=== PATIENT | female | born 1955 | race African-American/Black ===

== ENCOUNTER 2017-05-27 10:09 | Emergency (ER) | payer MEDICARE, OTHER ==
[~2017-05-27] VITALS: Ht 157.5 cm; Wt 53.0 kg
[~2017-05-27 10:09] MED LIST: CLON1PAT11 TD; HYDR-4135 PO; METR250T4 PO; PROT40 PO; SULF-165 PO; TRAM50TA3 PO
[2017-05-27] MEDS ORDERED: CLINDAMYCIN 300 MG in DEXTROSE 5% WATER 50 ML IV ONE (12:45)
[2017-05-27] MEDS ORDERED: SODIUM CHLORIDE 0.9% 1,000 ML IV ONE (12:45)
[2017-05-27 14:22] LABS: BASOPHILS % 0.2 % (0.0-2.0); EOSINOPHILS % 0.7 % (0.0-5.0); HEMATOCRIT. 33.4 % (36.0-48.0); LYMPHOCYTES % 14.5 % (20.0-50.0); MEAN CORPUSCULAR HEMOGLOBIN 32.1 pg (28.0-32.0); MEAN CORPUSCULAR VOLUME 97.6 fL (81.0-99.0); MEAN PLATELET VOLUME 9.1 fl (7.4-10.4); MONOCYTES % 7.7 % (2.0-8.0); NEUTROPHILS % 76.9 % (40.0-76.0); PLATELET 391 x1000/uL (130-400); RED BLOOD CELL COUNT 3.42 mill/uL (4.2-5.4); RED CELL DISTRIBUTION WIDTH 13.8 % (11.6-14.6)
[2017-05-27 14:25] LABS: CHLORIDE 101 mEq/L (98-107)
[2017-05-27 14:26] LABS: PROTHROMBIN TIME 10.8 sec (9.4-11.6)
[2017-05-27 14:29] LABS: CLARITY URINE CLEAR (CLEAR); COLOR URINE YELLOW (YELLOW); KETONES URINE TRACE (NEGATIVE); LEUKOCYTE ESTERASE URINE TRACE (NEGATIVE); NITRITE URINE NEGATIVE (NEGATIVE); OCCULT BLOOD URINE NEGATIVE (NEGATIVE); PROTEIN URINE NEGATIVE (NEGATIVE); SPECIFIC GRAVITY URINE 1.028 (1.005-1.030)
[2017-05-27 14:32] LABS: CARBON DIOXIDE 25 mEq/L (21-32)
[2017-05-27 14:55] LABS: *AMPHETAMINES SCREEN URINE NEGATIVE (NEGATIVE); *BARBITURATES SCREEN URINE NEGATIVE (NEGATIVE); *BENZODIAZEPINES SCREEN URINE NEGATIVE (NEGATIVE); *COCAINE SCREEN URINE PRESUMTIVE POSITIVE (NEGATIVE); CANNABINOID URINE SCREEN NEGATIVE (NEGATIVE); METHADONE URINE SCREEN NEGATIVE (NEGATIVE); OPIATES URINE SCREEN PRESUMTIVE POSITIVE (NEGATIVE); PHENCYCLIDINE URINE SCREEN PRESUMTIVE POSITIVE (NEGATIVE)
[2017-05-27] MEDS ORDERED: IOHEXOL-300 100 ML BOTTLE ONE (15:44)
[2017-05-27] MEDS ORDERED: MORPHINE SULFATE 4 MG/ML CPJ (NOT FOR IM USE) IV ONE (16:00)
[2017-05-27] MEDS ORDERED: HYDROCODONE/ACETAMINOPHEN 10/325MG TABLET PO ONE (16:00)
[2017-05-27] MEDS ORDERED: LIDOCAINE HCL 1%/EPI 1:200,000 30 ML VIAL MC ONE (16:00)
[2017-05-27 16:22] VITALS: BP 95/49
== END 2017-05-27 17:20 | disposition home or self-care (01) ==
LOC: ER 10:32
DX: L02.31 Cutaneous abscess of buttock (principal); F11.10 Opioid abuse, uncomplicated; F14.10 Cocaine abuse, uncomplicated; F16.10 Hallucinogen abuse, uncomplicated; I10 Essential (primary) hypertension; E78.00 Pure hypercholesterolemia, unspecified; M19.90 Unspecified osteoarthritis, unspecified site; J45.909 Unspecified asthma, uncomplicated; F17.210 Nicotine dependence, cigarettes, uncomplicated; D72.829 Elevated white blood cell count, unspecified
CPT/HCPCS: 10061; 36415; 71010; 72193; 80053; 80305; 81001; 83605; 85025; 85610; 87040; 87070; 87077; 87086; 87186; 87205; 93005; 96365; 96375; 99285; J2270; J3490; Q9967; J7030; J7060

== ENCOUNTER 2017-10-26 06:49 | Emergency (ER) | payer MEDICARE, MEDICAID ==
[~2017-10-26] VITALS: Ht 152.4 cm; Wt 52.0 kg
[2017-10-26] MEDS ORDERED: ONDANSETRON 4MG ODT PO STA (09:43)
[2017-10-26] MEDS ORDERED: KETOROLAC 30MG/ML VIAL IV STA (09:43)
[2017-10-26] MEDS ORDERED: MORPHINE SULFATE 4 MG/ML CPJ (NOT FOR IM USE) IV STA (09:43)
[2017-10-26] MEDS ORDERED: LIDOCAINE/EPINEPHR/TETRACAINE 3ML TP ONE (09:45)
[2017-10-26] MEDS ORDERED: VANCOMYCIN 1 G PREMIX 200 ML IV ONE (09:45)
[2017-10-26] MEDS ORDERED: LORAZEPAM 2MG/ML CPJ IV ONE (09:45)
[2017-10-26 11:25] LABS: BASOPHILS % 0.5 % (0.0-2.0); EOSINOPHILS % 0.9 % (0.0-5.0); HEMATOCRIT. 28.6 % (36.0-48.0); HEMOGLOBIN. 9.5 g/dL (12.0-16.0); LYMPHOCYTES % 17.4 % (20.0-50.0); MEAN CORPUSCULAR HEMOGLOBIN 31.8 pg (28.0-32.0); MEAN CORPUSCULAR VOLUME 95.5 fL (81.0-99.0); MEAN PLATELET VOLUME 8.8 fl (7.4-10.4); MONOCYTES % 8.4 % (2.0-8.0); NEUTROPHILS % 72.8 % (40.0-76.0); PLATELET 380 x1000/uL (130-400); RED CELL DISTRIBUTION WIDTH 16.6 % (11.6-14.6)
[2017-10-26 11:31] LABS: CHLORIDE 104 mEq/L (98-107); PROTHROMBIN TIME 10.6 sec (9.4-11.6)
[2017-10-26] MEDS ORDERED: LIDOCAINE HCL/PF 1% 10 MG/ML 5ML VIAL IJ NR (12:30)
[2017-10-26] MEDS ORDERED: LIDOCAINE HCL 1% 20ML VIAL (Pyxis) INJ MC ONE (12:30)
[2017-10-26] MEDS ORDERED: MORPHINE SULFATE 4 MG/ML CPJ (NOT FOR IM USE) IV ONE (14:15)
[2017-10-26 15:12] VITALS: BP 172/75
== END 2017-10-26 15:18 | disposition home or self-care (01) ==
LOC: ER 07:47 → ENRESERV 15:10 → ER 15:18 → CANBEDREQ 17:05
DX: L02.211 Cutaneous abscess of abdominal wall (principal); E78.00 Pure hypercholesterolemia, unspecified; I10 Essential (primary) hypertension; J45.909 Unspecified asthma, uncomplicated; F17.210 Nicotine dependence, cigarettes, uncomplicated; M19.90 Unspecified osteoarthritis, unspecified site; Z87.11 Personal history of peptic ulcer disease; Z71.6 Tobacco abuse counseling
CPT/HCPCS: 10060; 36415; 80048; 82962; 85025; 85610; 96365; 96366; 96375; 99285; 99406; J1885; J2060; J2270; J3370; J3490; Q0162

== ENCOUNTER 2017-10-28 07:34 | Emergency (ER) | payer MEDICAID, MEDICARE ==
[~2017-10-28] VITALS: Ht 154.9 cm; Wt 51.5 kg
[2017-10-28] MEDS ORDERED: antibiotic (07:44)
[2017-10-28 09:58] VITALS: BP 148/81
[2017-10-28] MEDS ORDERED: ACETAMINOPHEN WITH CODEINE 300/30MG TABLET PO ONE (10:00)
== END 2017-10-28 10:54 | disposition left against medical advice (07) ==
LOC: ER 07:56
DX: Z48.00 Encounter for change or removal of nonsurgical wound dressing (principal); E78.00 Pure hypercholesterolemia, unspecified; I10 Essential (primary) hypertension; F17.200 Nicotine dependence, unspecified, uncomplicated
CPT/HCPCS: 99282

== ENCOUNTER 2018-03-13 02:41 | Inpatient (IN) | payer MEDICARE, MEDICAID ==
[~2018-03-13] VITALS: Ht 152.4 cm; Wt 40.8 kg
[~2018-03-13 02:41] MED LIST changes: +AMLO10TA80 PO; +CLON0.1T14 PO; -CLON1PAT11 TD; -HYDR-4135 PO; -METR250T4 PO; +PANT40VI PO; -PROT40 PO; -SULF-165 PO
[2018-03-13] MEDS ORDERED: CALCIUM GLUCONATE 100MG/ML 10ML VIAL IV ONE (03:30)
[2018-03-13] MEDS ORDERED: MORPHINE SULFATE 4 MG/ML CPJ (NOT FOR IM USE) IV STA (03:32)
[2018-03-13] MEDS ORDERED: PANTOPRAZOLE SODIUM 40 MG/VIAL IV STA (03:32)
[2018-03-13 04:50] LABS: BASOPHILS % 0.3 % (0.0-2.0); EOSINOPHILS % 0.1 % (0.0-5.0); HEMATOCRIT. 24.1 % (36.0-48.0); LYMPHOCYTES % 7.9 % (20.0-50.0); MEAN CORPUSCULAR HEMOGLOBIN 31.7 pg (28.0-32.0); MEAN CORPUSCULAR VOLUME 95.4 fL (81.0-99.0); MEAN PLATELET VOLUME 8.2 fl (7.4-10.4); MONOCYTES % 5.6 % (2.0-8.0); NEUTROPHILS % 86.1 % (40.0-76.0); PLATELET 723 x1000/uL (130-400); RED BLOOD CELL COUNT 2.53 mill/uL (4.2-5.4); RED CELL DISTRIBUTION WIDTH 15.5 % (11.6-14.6)
[2018-03-13 05:16] LABS: CLARITY URINE CLEAR (CLEAR); COLOR URINE YELLOW (YELLOW); KETONES URINE TRACE (NEGATIVE); LEUKOCYTE ESTERASE URINE TRACE (NEGATIVE); NITRITE URINE NEGATIVE (NEGATIVE); OCCULT BLOOD URINE NEGATIVE (NEGATIVE); PH URINE 6.5 (4.5-8.0); PROTEIN URINE TRACE (NEGATIVE); SPECIFIC GRAVITY URINE 1.037 (1.005-1.030); UROBILINOGEN URINE 0.2 E.U./dL (0.2-1.0)
[2018-03-13] MEDS ORDERED: PIPERACILLIN/TAZOBACTAM 3.375GM/50ML PREMIX IV ONE (05:30)
[2018-03-13] MEDS ORDERED: PIPERACILLIN/TAZ 3.375G PREMIX 50 ML IV NR (05:30)
[2018-03-13 05:37] LABS: CHLORIDE 98 mEq/L (98-107)
[2018-03-13] MEDS ORDERED: SODIUM CHLORIDE 0.9% 1000ML BAG (SEPSIS BOLUS) IV ONE (05:45)
[2018-03-13] MEDS ORDERED: POTASSIUM CHLORIDE INJ 40 MEQ in DEXT 5% WATER 250 ML IV ONE (05:45)
[2018-03-13] MEDS ORDERED: IOHEXOL-300 100 ML BOTTLE ONE (06:16)
[2018-03-13 09:42] VITALS: BP 153/85
[2018-03-13 09:56] VITALS: BP 153/85
[2018-03-13] MEDS ORDERED: ATEN-42 PO (10:10)
[2018-03-13] MEDS ORDERED: HYDR12.529 PO (10:10)
[2018-03-13] MEDS ORDERED: SIMV5TAB53 PO (10:10)
[2018-03-13] MEDS: DEXT 5%/0.45% NACL 1000ML 1,000 ML IV SCH (10:37)
[2018-03-13] MEDS ORDERED: IPRATROPIUM/ALBUTEROL 0.5-3(2.5)MG/3ML NEB INH PRN (10:45)
[2018-03-13] MEDS ORDERED: LORAZEPAM 0.5MG TABLET PO PRN (10:45)
[2018-03-13] MEDS ORDERED: ACETAMINOPHEN 325MG TABLET PO PRN (10:45)
[2018-03-13 12:00] VITALS: BP 165/81
[2018-03-13] MEDS ORDERED: MVI, ADULT NO.1 10 ML, FOLIC ACID 1 MG, THIAMINE HCL 100 MG in SODIUM CHLORIDE 0.9% 1,0... IV NR ×4 (12:00)
[2018-03-13 12:43] VITALS: BP 161/86
[2018-03-13] MEDS ORDERED: ONDANSETRON HCL 4MG/2ML INJ IV PRN (12:45)
[2018-03-13] MEDS: AMLODIPINE 2.5MG TABLET PO SCH (12:55)
[2018-03-13] MEDS: NICOTINE 7MG PATCH TD SCH (12:56)
[2018-03-13] MEDS: MORPHINE SULFATE 4 MG/ML CPJ (NOT FOR IM USE) IV PRN ×3 (12:56→21:58)
[2018-03-13 13:20] LABS: PHOSPHORUS 2.9 mg/dL (2.5-4.9)
[2018-03-13] MEDS ORDERED: POTASSIUM CHLORIDE 20MEQ TABLET SR PO SCH (14:00)
[2018-03-13] MEDS ORDERED: HYDR25TA MT (15:03)
[2018-03-13] MEDS ORDERED: HYDR-4009 MT (15:03)
[2018-03-13] MEDS ORDERED: TYLENOL #3 PO (15:03)
[2018-03-13] MEDS ORDERED: GEMF600T4 MT (15:03)
[2018-03-13 16:00] VITALS: BP 128/62
[2018-03-13 20:00] VITALS: BP 147/67
[2018-03-13] MEDS: CLONIDINE 0.1MG TABLET PO SCH (21:57)
[2018-03-13] MEDS: ATENOLOL 25MG TABLET PO SCH (21:57)
[2018-03-13] MEDS: HYDROCHLOROTHIAZIDE 25MG TABLET PO SCH (22:04)
[2018-03-13] MEDS ORDERED: LEVOFLOXACIN 500MG PREMIX 100 ML IV NR (22:30)
[2018-03-14] VITALS (9 sets, daily range): BP systolic 117–157; BP diastolic 65–86
[2018-03-14] MEDS: MORPHINE SULFATE 4 MG/ML CPJ (NOT FOR IM USE) IV PRN ×5 (04:01→21:31)
[2018-03-14] MEDS: DEXT 5%/0.45% NACL 1000ML 1,000 ML IV SCH (04:01)
[2018-03-14 07:38] LABS: BASOPHILS % 0.5 % (0.0-2.0); EOSINOPHILS % 0.1 % (0.0-5.0); LYMPHOCYTES % 14.1 % (20.0-50.0); MEAN CORPUSCULAR HEMOGLOBIN 32.2 pg (28.0-32.0); MEAN CORPUSCULAR VOLUME 96.2 fL (81.0-99.0); MEAN PLATELET VOLUME 8.7 fl (7.4-10.4); MONOCYTES % 4.6 % (2.0-8.0); NEUTROPHILS % 80.7 % (40.0-76.0); PLATELET 584 x1000/uL (130-400); RED CELL DISTRIBUTION WIDTH 15.1 % (11.6-14.6)
[2018-03-14 07:46] LABS: HEMATOCRIT. 19.2 % (36.0-48.0); HEMOGLOBIN. 6.4 g/dL (12.0-16.0)
[2018-03-14 08:14] LABS: CHLORIDE 105 mEq/L (98-107)
[2018-03-14 08:18] LABS: PHOSPHORUS 2.9 mg/dL (2.5-4.9)
[2018-03-14] MEDS ORDERED: POTASSIUM CHLORIDE 20MEQ TABLET SR PO NR ×2 (09:30→13:30)
[2018-03-14] MEDS: DEXT 5%/0.45% NACL KCL 20MEQ/L 1,000 ML IV SCH ×2 (10:23→22:20)
[2018-03-14] MEDS: NICOTINE 7MG PATCH TD SCH (10:23)
[2018-03-14] MEDS: GEMFIBROZIL 600MG TABLET PO SCH (10:23)
[2018-03-14] MEDS: CLONIDINE 0.1MG TABLET PO SCH ×2 (10:24→21:31)
[2018-03-14] MEDS: AMLODIPINE 2.5MG TABLET PO SCH (10:24)
[2018-03-14] MEDS: ATENOLOL 25MG TABLET PO SCH (10:24)
[2018-03-14] MEDS: HYDROCHLOROTHIAZIDE 25MG TABLET PO SCH (10:24)
[2018-03-14] MEDS: LEVOFLOXACIN 250MG PREMIX 50 ML IV SCH (11:07)
[2018-03-14] MEDS: METRONIDAZOLE 500 MG PREMIX 100 ML IV SCH ×2 (17:10→22:10)
[2018-03-14 21:31] LABS: BASOPHILS % 0.3 % (0.0-2.0); EOSINOPHILS % 0.2 % (0.0-5.0); HEMATOCRIT. 23.5 % (36.0-48.0); LYMPHOCYTES % 20.2 % (20.0-50.0); MEAN CORPUSCULAR HEMOGLOBIN 31.9 pg (28.0-32.0); MEAN CORPUSCULAR VOLUME 93.2 fL (81.0-99.0); MEAN PLATELET VOLUME 7.9 fl (7.4-10.4); MONOCYTES % 7.3 % (2.0-8.0); PLATELET 603 x1000/uL (130-400); RED BLOOD CELL COUNT 2.52 mill/uL (4.2-5.4); RED CELL DISTRIBUTION WIDTH 15.7 % (11.6-14.6)
[2018-03-14] MEDS: DIPHENHYDRAMINE 50MG/ML VIAL IV PRN (22:03)
[2018-03-15] VITALS: BP 151/81
[2018-03-15] MEDS: MORPHINE SULFATE 4 MG/ML CPJ (NOT FOR IM USE) IV PRN ×2 (03:02→09:26)
[2018-03-15 04:00] VITALS: BP 109/70
[2018-03-15 05:06] LABS: *AMPHETAMINES SCREEN URINE NEGATIVE (NEGATIVE); *BARBITURATES SCREEN URINE NEGATIVE (NEGATIVE); *BENZODIAZEPINES SCREEN URINE NEGATIVE (NEGATIVE); *COCAINE SCREEN URINE NEGATIVE (NEGATIVE); METHADONE URINE SCREEN NEGATIVE (NEGATIVE); OPIATES URINE SCREEN PRESUMTIVE POSITIVE (NEGATIVE); PHENCYCLIDINE URINE SCREEN NEGATIVE (NEGATIVE)
[2018-03-15 05:07] LABS: CANNABINOID URINE SCREEN NEGATIVE (NEGATIVE)
[2018-03-15] MEDS: METRONIDAZOLE 500 MG PREMIX 100 ML IV SCH ×3 (05:21→21:17)
[2018-03-15 06:26] LABS: CHLORIDE 109 mEq/L (98-107)
[2018-03-15 06:34] LABS: BASOPHILS % 0.2 % (0.0-2.0); EOSINOPHILS % 0.3 % (0.0-5.0); HEMATOCRIT. 23.8 % (36.0-48.0); HEMOGLOBIN. 8.2 g/dL (12.0-16.0); LYMPHOCYTES % 24.3 % (20.0-50.0); MEAN CORPUSCULAR VOLUME 92.9 fL (81.0-99.0); MEAN PLATELET VOLUME 8.3 fl (7.4-10.4); MONOCYTES % 7.9 % (2.0-8.0); NEUTROPHILS % 67.3 % (40.0-76.0); PLATELET 619 x1000/uL (130-400); RED BLOOD CELL COUNT 2.56 mill/uL (4.2-5.4); RED CELL DISTRIBUTION WIDTH 16.1 % (11.6-14.6)
[2018-03-15 08:09] VITALS: BP 141/79
[2018-03-15] MEDS: NICOTINE 7MG PATCH TD SCH ×2 (09:00→09:24)
[2018-03-15] MEDS ORDERED: POTASSIUM CHLORIDE INJ 40 MEQ in DEXT 5% WATER 250 ML IV SCH (09:00)
[2018-03-15] MEDS: POTASSIUM CHLORIDE 20MEQ TABLET SR PO SCH (09:26)
[2018-03-15] MEDS: GEMFIBROZIL 600MG TABLET PO SCH (09:26)
[2018-03-15] MEDS: CLONIDINE 0.1MG TABLET PO SCH ×2 (09:27→21:16)
[2018-03-15] MEDS: AMLODIPINE 2.5MG TABLET PO SCH (09:27)
[2018-03-15] MEDS: ATENOLOL 25MG TABLET PO SCH (09:27)
[2018-03-15] MEDS: HYDROCHLOROTHIAZIDE 25MG TABLET PO SCH (09:27)
[2018-03-15 12:02] VITALS: BP 155/85
[2018-03-15] MEDS: DEXT 5%/0.45% NACL KCL 20MEQ/L 1,000 ML IV SCH (12:40)
[2018-03-15] MEDS: HYDROMORPHONE HCL/PF 2MG/ML CPJ IV PRN ×3 (13:56→21:18)
[2018-03-15] MEDS: LEVOFLOXACIN 250MG PREMIX 50 ML IV SCH (13:57)
[2018-03-15 15:56] VITALS: BP 151/80
[2018-03-15 20:00] VITALS: BP 135/81
[2018-03-16] VITALS: BP 112/66
[2018-03-16] MEDS: HYDROMORPHONE HCL/PF 2MG/ML CPJ IV PRN ×7 (01:18→22:30)
[2018-03-16] MEDS: DEXT 5%/0.45% NACL KCL 20MEQ/L 1,000 ML IV SCH ×3 (01:22→23:57)
[2018-03-16] MEDS: DIPHENHYDRAMINE 50MG/ML VIAL IV PRN ×2 (01:55→22:31)
[2018-03-16 04:00] VITALS: BP_SYST 110; BP_SYST 155; BP_DIAS 50; BP_DIAS 60
[2018-03-16] MEDS: METRONIDAZOLE 500 MG PREMIX 100 ML IV SCH ×3 (05:56→22:28)
[2018-03-16 06:14] LABS: HEMATOCRIT. 22.2 % (36.0-48.0); HEMOGLOBIN. 7.5 g/dL (12.0-16.0); MEAN CORPUSCULAR HEMOGLOBIN 31.8 pg (28.0-32.0); MEAN CORPUSCULAR VOLUME 93.6 fL (81.0-99.0); MEAN PLATELET VOLUME 8.6 fl (7.4-10.4); PLATELET 685 x1000/uL (130-400); RED BLOOD CELL COUNT 2.37 mill/uL (4.2-5.4); RED CELL DISTRIBUTION WIDTH 15.8 % (11.6-14.6)
[2018-03-16 06:32] LABS: CHLORIDE 105 mEq/L (98-107)
[2018-03-16 08:10] VITALS: BP 158/86
[2018-03-16] MEDS: POTASSIUM CHLORIDE 20MEQ TABLET SR PO SCH (08:30)
[2018-03-16] MEDS: GEMFIBROZIL 600MG TABLET PO SCH (09:13)
[2018-03-16] MEDS: ATENOLOL 25MG TABLET PO SCH (09:13)
[2018-03-16] MEDS: CLONIDINE 0.1MG TABLET PO SCH ×2 (09:13→21:09)
[2018-03-16] MEDS: HYDROCHLOROTHIAZIDE 25MG TABLET PO SCH (09:13)
[2018-03-16] MEDS: AMLODIPINE 2.5MG TABLET PO SCH (09:13)
[2018-03-16] MEDS: NICOTINE 7MG PATCH TD SCH (09:14)
[2018-03-16 12:05] VITALS: BP 154/84
[2018-03-16 13:03] LABS: PLATELET ESTIMATE INCREASED
[2018-03-16] MEDS: LEVOFLOXACIN 250MG PREMIX 50 ML IV SCH (13:24)
[2018-03-16] MEDS ORDERED: LOPERAMIDE HCL 2MG CAPSULE PO PRN (16:00)
[2018-03-16] MEDS ORDERED: HYDROMORPHONE HCL/PF 2MG/ML CPJ IV PRN (16:00)
[2018-03-16 16:20] LABS: INR 1.1; PROTHROMBIN TIME 10.7 sec (9.1-11.1)
[2018-03-16 16:30] VITALS: BP 144/84
[2018-03-16 16:40] LABS: CHLORIDE 103 mEq/L (98-107)
[2018-03-16 20:00] VITALS: BP 124/79
[2018-03-17] VITALS: BP 160/90
[2018-03-17 01:13] LABS: CHLORIDE 101 mEq/L (98-107)
[2018-03-17] MEDS: HYDROMORPHONE HCL/PF 2MG/ML CPJ IV PRN ×5 (01:36→21:16)
[2018-03-17 04:00] VITALS: BP 153/94
[2018-03-17] MEDS: METRONIDAZOLE 500 MG PREMIX 100 ML IV SCH ×2 (05:15→13:53)
[2018-03-17 06:31] LABS: BASOPHILS % 0.1 % (0.0-2.0); EOSINOPHILS % 0.1 % (0.0-5.0); MEAN CORPUSCULAR HEMOGLOBIN 31.2 pg (28.0-32.0); MEAN CORPUSCULAR VOLUME 92.9 fL (81.0-99.0); MEAN PLATELET VOLUME 8.5 fl (7.4-10.4); MONOCYTES % 5.8 % (2.0-8.0); PLATELET 761 x1000/uL (130-400); RED BLOOD CELL COUNT 2.94 mill/uL (4.2-5.4); RED CELL DISTRIBUTION WIDTH 15.3 % (11.6-14.6)
[2018-03-17 06:39] LABS: CHLORIDE 100 mEq/L (98-107)
[2018-03-17 06:55] LABS: PHOSPHORUS 3.7 mg/dL (2.5-4.9)
[2018-03-17 06:57] LABS: HEMATOCRIT. 27.3 % (36.0-48.0); HEMOGLOBIN. 9.2 g/dL (12.0-16.0)
[2018-03-17 08:30] VITALS: BP 156/94
[2018-03-17] MEDS: AMLODIPINE 2.5MG TABLET PO SCH (09:12)
[2018-03-17] MEDS: ATENOLOL 25MG TABLET PO SCH (09:12)
[2018-03-17] MEDS: GEMFIBROZIL 600MG TABLET PO SCH (09:12)
[2018-03-17] MEDS: LACTOBACILLUS GG CAPSULE PO SCH (09:12)
[2018-03-17] MEDS: NICOTINE 7MG PATCH TD SCH (09:20)
[2018-03-17 12:30] VITALS: BP 184/96
[2018-03-17] MEDS: CLONIDINE 0.1MG TABLET PO SCH ×2 (13:34→20:34)
[2018-03-17] MEDS: DEXT 5%/0.45% NACL KCL 20MEQ/L 1,000 ML IV SCH ×2 (13:53→20:37)
[2018-03-17] MEDS: LEVOFLOXACIN 250MG PREMIX 50 ML IV SCH (16:06)
[2018-03-17 16:30] VITALS: BP 140/82
[2018-03-17] MEDS ORDERED: POTASSIUM CHLORIDE 20MEQ TABLET SR PO NR (16:36)
[2018-03-17] MEDS ORDERED: LOPERAMIDE HCL 2MG CAPSULE PO NR (16:46)
[2018-03-17] MEDS ORDERED: SIMETHICONE 80MG TABLET CHEW PO PRN (17:00)
[2018-03-17] MEDS ORDERED: POTASSIUM CHLORIDE INJ 40 MEQ in DEXT 5% WATER 250 ML IV PRN (19:30)
[2018-03-17 20:00] VITALS: BP 129/72
[2018-03-17] MEDS: LOPERAMIDE HCL 2MG CAPSULE PO SCH (20:35)
[2018-03-17] MEDS: PANTOPRAZOLE SODIUM 40 MG/VIAL IV SCH (20:37)
[2018-03-17 21:31] LABS: CHLORIDE 101 mEq/L (98-107)
[2018-03-18] VITALS (7 sets, daily range): BP systolic 102–123; BP diastolic 54–74
[2018-03-18] MEDS: METRONIDAZOLE 500 MG PREMIX 100 ML IV SCH ×4 (00:46→20:49)
[2018-03-18] MEDS: ZOLPIDEM TARTRATE 5MG TABLET PO PRN (00:48)
[2018-03-18 01:22] LABS: CHLORIDE 103 mEq/L (98-107)
[2018-03-18] MEDS: HYDROMORPHONE HCL/PF 2MG/ML CPJ IV PRN ×5 (01:55→20:39)
[2018-03-18] MEDS: LOPERAMIDE HCL 2MG CAPSULE PO SCH ×3 (04:00→08:00)
[2018-03-18] MEDS: DEXT 5%/0.45% NACL KCL 20MEQ/L 1,000 ML IV SCH ×2 (05:20→11:08)
[2018-03-18 06:55] LABS: BASOPHILS % 0.1 % (0.0-2.0); EOSINOPHILS % 0.1 % (0.0-5.0); LYMPHOCYTES % 13.1 % (20.0-50.0); MEAN CORPUSCULAR HEMOGLOBIN 31.2 pg (28.0-32.0); MEAN CORPUSCULAR VOLUME 93.8 fL (81.0-99.0); MEAN PLATELET VOLUME 8.4 fl (7.4-10.4); MONOCYTES % 9.4 % (2.0-8.0); NEUTROPHILS % 77.3 % (40.0-76.0); PLATELET 643 x1000/uL (130-400); RED BLOOD CELL COUNT 2.56 mill/uL (4.2-5.4)
[2018-03-18 07:18] LABS: PHOSPHORUS 1.8 mg/dL (2.5-4.9)
[2018-03-18] MEDS: CLONIDINE 0.1MG TABLET PO SCH ×2 (09:00→21:00)
[2018-03-18] MEDS: ATENOLOL 25MG TABLET PO SCH (09:00)
[2018-03-18] MEDS: AMLODIPINE 2.5MG TABLET PO SCH (09:00)
[2018-03-18] MEDS: GEMFIBROZIL 600MG TABLET PO SCH (10:44)
[2018-03-18] MEDS: LACTOBACILLUS GG CAPSULE PO SCH (10:44)
[2018-03-18] MEDS: NICOTINE 7MG PATCH TD SCH (10:44)
[2018-03-18] MEDS: PANTOPRAZOLE SODIUM 40 MG/VIAL IV SCH ×2 (10:45→20:48)
[2018-03-18] MEDS: SODIUM CHLORIDE 0.45% 1,000 ML IV SCH (14:50)
[2018-03-18] MEDS ORDERED: LOPERAMIDE HCL 2MG CAPSULE PO SCH (16:00)
[2018-03-18] MEDS: LEVOFLOXACIN 250MG PREMIX 50 ML IV SCH (17:48)
[2018-03-19] VITALS (7 sets, daily range): BP systolic 108–146; BP diastolic 66–81
[2018-03-19] MEDS: HYDROMORPHONE HCL/PF 2MG/ML CPJ IV PRN ×5 (01:11→22:05)
[2018-03-19] MEDS: ZOLPIDEM TARTRATE 5MG TABLET PO PRN (01:12)
[2018-03-19] MEDS: SODIUM CHLORIDE 0.45% 1,000 ML IV SCH ×2 (02:16→21:31)
[2018-03-19] MEDS: METRONIDAZOLE 500 MG PREMIX 100 ML IV SCH ×3 (06:12→21:34)
[2018-03-19] MEDS: LOPERAMIDE HCL 2MG CAPSULE PO PRN (06:33)
[2018-03-19 06:55] LABS: BASOPHILS % 0.6 % (0.0-2.0); EOSINOPHILS % 0.2 % (0.0-5.0); HEMATOCRIT. 23.1 % (36.0-48.0); HEMOGLOBIN. 7.7 g/dL (12.0-16.0); LYMPHOCYTES % 18.2 % (20.0-50.0); MEAN CORPUSCULAR HEMOGLOBIN 31.7 pg (28.0-32.0); MEAN CORPUSCULAR VOLUME 94.7 fL (81.0-99.0); MEAN PLATELET VOLUME 8.5 fl (7.4-10.4); MONOCYTES % 6.7 % (2.0-8.0); NEUTROPHILS % 74.3 % (40.0-76.0); PLATELET 671 x1000/uL (130-400); RED BLOOD CELL COUNT 2.44 mill/uL (4.2-5.4); RED CELL DISTRIBUTION WIDTH 15.6 % (11.6-14.6)
[2018-03-19 06:59] LABS: INR 1.1; PARTIAL THROMBOPLASTIN TIME 33.9 sec (23.4-31.0); PROTHROMBIN TIME 11.4 sec (9.1-11.1)
[2018-03-19 07:18] LABS: CHLORIDE 107 mEq/L (98-107)
[2018-03-19] MEDS: AMLODIPINE 2.5MG TABLET PO SCH (09:00)
[2018-03-19] MEDS: ATENOLOL 25MG TABLET PO SCH (09:00)
[2018-03-19] MEDS: CLONIDINE 0.1MG TABLET PO SCH ×2 (09:00→21:00)
[2018-03-19] MEDS: GEMFIBROZIL 600MG TABLET PO SCH (09:59)
[2018-03-19] MEDS: LACTOBACILLUS GG CAPSULE PO SCH (09:59)
[2018-03-19] MEDS: PANTOPRAZOLE SODIUM 40 MG/VIAL IV SCH ×2 (09:59→21:34)
[2018-03-19] MEDS: NICOTINE 7MG PATCH TD SCH (10:00)
[2018-03-19] MEDS ORDERED: SODIUM PHOS,M-BASIC-D-BASIC 20 MM in DEXT 5% WATER 243.3333 ML IV SCH (14:00)
[2018-03-19] MEDS ORDERED: MAGNESIUM SULFATE 2 GM in DEXTROSE 5% WATER 50 ML IV SCH (14:00)
[2018-03-19] MEDS: LEVOFLOXACIN 250MG PREMIX 50 ML IV SCH (15:02)
[2018-03-19 15:08] LABS: ATYPICAL pANCA <1:20 titer (Neg:<1:20)
[2018-03-19] MEDS ORDERED: MIDAZOLAM HCL 2 MG/2 ML VIAL IV PRN (17:50)
[2018-03-19] MEDS ORDERED: FENTANYL CITRATE/PF 50MCG/ML 2ML VIAL IV PRN (17:51)
[2018-03-19] MEDS ORDERED: MIDAZOLAM HCL 5 MG/5 ML VIAL ONE (17:56)
[2018-03-19] MEDS ORDERED: FENTANYL CITRATE/PF 50MCG/ML 2ML VIAL ONE (17:56)
[2018-03-19] MEDS: SUCRALFATE 1G TABLET PO SCH (21:37)
[2018-03-20] VITALS: BP 127/79
[2018-03-20] MEDS: HYDROMORPHONE HCL/PF 2MG/ML CPJ IV PRN ×3 (02:04→09:55)
[2018-03-20] MEDS: SODIUM CHLORIDE 0.45% 1,000 ML IV SCH ×3 (02:05→14:30)
[2018-03-20] MEDS: ZOLPIDEM TARTRATE 5MG TABLET PO PRN (02:08)
[2018-03-20 04:00] VITALS: BP 143/83
[2018-03-20] MEDS: LOPERAMIDE HCL 2MG CAPSULE PO PRN (05:58)
[2018-03-20] MEDS: METRONIDAZOLE 500 MG PREMIX 100 ML IV SCH (05:58)
[2018-03-20] MEDS: CLONIDINE 0.1MG TABLET PO SCH (09:00)
[2018-03-20 09:05] VITALS: BP 142/67
[2018-03-20] MEDS: AMLODIPINE 2.5MG TABLET PO SCH (09:11)
[2018-03-20] MEDS: GEMFIBROZIL 600MG TABLET PO SCH (09:12)
[2018-03-20] MEDS: PANTOPRAZOLE SODIUM 40 MG/VIAL IV SCH (09:12)
[2018-03-20] MEDS: LACTOBACILLUS GG CAPSULE PO SCH (09:12)
[2018-03-20] MEDS: ATENOLOL 25MG TABLET PO SCH (09:12)
[2018-03-20] MEDS: NICOTINE 7MG PATCH TD SCH (09:12)
[2018-03-20] MEDS: SUCRALFATE 1G TABLET PO SCH ×3 (09:12→16:32)
[2018-03-20] MEDS ORDERED: FLUCONAZOLE 200MG TABLET PO SCH (10:30)
[2018-03-20 11:26] LABS: BASOPHILS % 0.6 % (0.0-2.0); EOSINOPHILS % 0.1 % (0.0-5.0); HEMATOCRIT. 22.3 % (36.0-48.0); HEMOGLOBIN. 7.3 g/dL (12.0-16.0); LYMPHOCYTES % 17.1 % (20.0-50.0); MEAN CORPUSCULAR HEMOGLOBIN 31.1 pg (28.0-32.0); MEAN PLATELET VOLUME 8.2 fl (7.4-10.4); MONOCYTES % 5.8 % (2.0-8.0); NEUTROPHILS % 76.4 % (40.0-76.0); PLATELET 744 x1000/uL (130-400); RED BLOOD CELL COUNT 2.35 mill/uL (4.2-5.4); RED CELL DISTRIBUTION WIDTH 15.2 % (11.6-14.6)
[2018-03-20 12:12] LABS: CHLORIDE 109 mEq/L (98-107)
[2018-03-20 12:42] VITALS: BP 144/79
[2018-03-20 13:07] LABS: SACCHAROMYCES CEREVISIAE IGG 61.8 Units (0.0-24.9)
[2018-03-20] MEDS ORDERED: PANT40VI IV (14:54)
[2018-03-20] MEDS ORDERED: FLUC200T PO (14:54)
[2018-03-20] MEDS ORDERED: SUCR1TAB30 PO (14:54)
[2018-03-20] MEDS ORDERED: LACT1CAP77 PO (14:54)
[2018-03-20] MEDS ORDERED: CLON0.1T14 PO (14:54)
[2018-03-20] MEDS ORDERED: AMLO2.5T45 PO (14:54)
[2018-03-20] MEDS ORDERED: SODIUM CHLORIDE 0.9% 10ML VIAL ONE (15:38)
[2018-03-20] MEDS ORDERED: HYDROCODONE/ACETAMINOPHEN 5/325MG TABLET PO SCH (17:00)
[2018-03-20 17:23] VITALS: BP 149/81
== END 2018-03-20 18:30 | disposition home or self-care (01) | DRG 871 ==
LOC: ER 02:41 → 6WST 05:45 → EDBEDREQ 05:54 → EDBEDREQTM 05:54 → ENRESERV 07:25
PROVIDERS: ADMIT Internal Medicine; ATTEND Internal Medicine
PROC: 30233N1 Transfusion of Nonautologous Red Blood Cells into Peripheral Vein, Percutaneous Approach (ICD-10-PCS; 2018-03-14)
PROC: 0DB28ZX Excision of Middle Esophagus, Via Natural or Artificial Opening Endoscopic, Diagnostic (ICD-10-PCS; 2018-03-19)
PROC: 0DB78ZX Excision of Stomach, Pylorus, Via Natural or Artificial Opening Endoscopic, Diagnostic (ICD-10-PCS; 2018-03-19)
PROC: 0DB38ZX Excision of Lower Esophagus, Via Natural or Artificial Opening Endoscopic, Diagnostic (ICD-10-PCS; principal; 2018-03-19 17:00)
DX: A41.9 Sepsis, unspecified organism (principal); E43 Unspecified severe protein-calorie malnutrition; K28.4 Chronic or unspecified gastrojejunal ulcer with hemorrhage; N39.0 Urinary tract infection, site not specified; L03.113 Cellulitis of right upper limb; B37.81 Candidal esophagitis; L02.413 Cutaneous abscess of right upper limb; Z68.1 Body mass index [BMI] 19.9 or less, adult; K52.9 Noninfective gastroenteritis and colitis, unspecified; E87.6 Hypokalemia; E11.22 Type 2 diabetes mellitus with diabetic chronic kidney disease; K29.70 Gastritis, unspecified, without bleeding; E78.00 Pure hypercholesterolemia, unspecified; E86.1 Hypovolemia; B19.20 Unspecified viral hepatitis C without hepatic coma; F14.10 Cocaine abuse, uncomplicated; F11.10 Opioid abuse, uncomplicated; F10.10 Alcohol abuse, uncomplicated; F15.10 Other stimulant abuse, uncomplicated; I12.9 Hypertensive chronic kidney disease with stage 1 through stage 4 chronic kidney disease, or unspecified chronic kidney disease; N18.9 Chronic kidney disease, unspecified; D64.9 Anemia, unspecified; Z87.01 Personal history of pneumonia (recurrent); Z72.0 Tobacco use; Z86.19 Personal history of other infectious and parasitic diseases; Z71.41 Alcohol abuse counseling and surveillance of alcoholic; Z87.11 Personal history of peptic ulcer disease; Z93.4 Other artificial openings of gastrointestinal tract status
CPT/HCPCS: 36415; 74177; 76700; 80048; 80305; 82270; 83605; 83735; 84100; 84132; 84145; 86256; 86671; 86850; 86900; 86920; 87015; 87045; 87427; 87449; 87493; 88305; 88312; 88313; 89055; 93005; 96365; 96366; 96367; 96368; 96375; 99285; A4216; A6261; C1893; C9113; J0610; J1170; J1200; J1956; J2250; J2270; J2405; J2543; J3010; J3411; J3475; J3480; J3490; J7030; J7050; J7060; P9016; Q9967

== ENCOUNTER 2018-03-27 03:53 | Inpatient (IN) | payer MEDICARE, MEDICAID ==
[~2018-03-27] VITALS: Ht 154.9 cm; Wt 49.9 kg
[2018-03-27] VITALS (7 sets, daily range): BP systolic 156–180; BP diastolic 73–93
[~2018-03-27 03:53] MED LIST changes: -AMLO10TA80 PO; +AMLO2.5T45 PO; +ATEN-42 PO; +FLUC200T PO; +GEMF600T4 MT; +HYDR-4009 MT; +HYDR25TA MT; +LACT1CAP77 PO; +PANT40VI IV; -PANT40VI PO; +SUCR1TAB30 PO; -TRAM50TA3 PO; +TYLENOL #3 PO
[2018-03-27] MEDS ORDERED: ONDANSETRON HCL 4MG/2ML INJ IV STA (06:23)
[2018-03-27] MEDS ORDERED: MORPHINE SULFATE 4 MG/ML CPJ (NOT FOR IM USE) IV STA (06:23)
[2018-03-27] MEDS ORDERED: SODIUM CHLORIDE 0.9% 1000ML BAG (SEPSIS BOLUS) IV ONE (06:30)
[2018-03-27 07:09] LABS: BASOPHILS % 0.2 % (0.0-2.0); EOSINOPHILS % 0.2 % (0.0-5.0); HEMATOCRIT. 21.6 % (36.0-48.0); HEMOGLOBIN. 7.4 g/dL (12.0-16.0); LYMPHOCYTES % 25.4 % (20.0-50.0); MEAN CORPUSCULAR HEMOGLOBIN 31.3 pg (28.0-32.0); MEAN CORPUSCULAR VOLUME 91.7 fL (81.0-99.0); MEAN PLATELET VOLUME 8.4 fl (7.4-10.4); MONOCYTES % 8.7 % (2.0-8.0); NEUTROPHILS % 65.5 % (40.0-76.0); PLATELET 596 x1000/uL (130-400); RED BLOOD CELL COUNT 2.36 mill/uL (4.2-5.4); RED CELL DISTRIBUTION WIDTH 15.1 % (11.6-14.6)
[2018-03-27 07:18] LABS: CHLORIDE 113 mEq/L (98-107)
[2018-03-27 07:27] LABS: INR 1.2; PARTIAL THROMBOPLASTIN TIME 37.6 sec (23.4-31.0); PROTHROMBIN TIME 11.8 sec (9.1-11.1)
[2018-03-27] MEDS ORDERED: FUROSEMIDE 20MG/2ML VIAL IVP ONE (07:45)
[2018-03-27] MEDS ORDERED: POTASSIUM CHLORIDE 20MEQ TABLET SR PO ONE (07:45)
[2018-03-27 07:50] LABS: CLARITY URINE CLOUDY (CLEAR); COLOR URINE YELLOW (YELLOW); KETONES URINE NEGATIVE (NEGATIVE); LEUKOCYTE ESTERASE URINE 1+ (NEGATIVE); NITRITE URINE NEGATIVE (NEGATIVE); OCCULT BLOOD URINE NEGATIVE (NEGATIVE); PROTEIN URINE NEGATIVE (NEGATIVE); SPECIFIC GRAVITY URINE 1.019 (1.005-1.030)
[2018-03-27] MEDS ORDERED: IOHEXOL-300 100 ML BOTTLE ONE (09:08)
[2018-03-27] MEDS ORDERED: IPRATROPIUM/ALBUTEROL 0.5-3(2.5)MG/3ML NEB INH PRN (10:00)
[2018-03-27] MEDS ORDERED: PIPERACILLIN/TAZ 3.375G PREMIX 50 ML IV SCH (10:00)
[2018-03-27] MEDS ORDERED: NA PHOS,M-B/NA PHOS,DI-BA ENEMA 118ML PR PRN (10:00)
[2018-03-27] MEDS ORDERED: GUAIFENESIN 200MG/10ML SUGAR FREE UDC PO PRN (10:00)
[2018-03-27] MEDS ORDERED: DOCUSATE SODIUM 100MG CAPSULE PO PRN (10:00)
[2018-03-27] MEDS ORDERED: VANCOMYCIN 1 G PREMIX 200 ML IV SCH ×2 (10:15→23:00)
[2018-03-27] MEDS: MORPHINE SULFATE 4 MG/ML CPJ (NOT FOR IM USE) IV PRN ×3 (11:07→21:26)
[2018-03-27] MEDS: ONDANSETRON HCL 4MG/2ML INJ IV PRN (11:07)
[2018-03-27] MEDS: SODIUM CHLORIDE 0.45% 1,000 ML IV SCH (16:46)
[2018-03-27] MEDS ORDERED: PNEUMOCOCCAL 23-VAL P-SAC VAC 0.5 ML IM ONE (17:15)
[2018-03-27] MEDS ORDERED: INFLUENZA VIRUS VACCINE(AFLURIA) 0.5ML SYR IM ONE (17:15)
[2018-03-27 17:56] LABS: CHLORIDE 115 mEq/L (98-107)
[2018-03-27 18:02] LABS: CREATINE KINASE 24 IU/L (26-192); CREATINE KINASE MB FRACTION 1.5 ng/mL (0.5-3.6)
[2018-03-27] MEDS: PIPERACILLIN/TAZ 3.375G PREMIX 50 ML IV SCH (18:06)
[2018-03-27] MEDS ORDERED: POTASSIUM CHLORIDE INJ 40 MEQ in DEXT 5% WATER 250 ML IV NR (22:00)
[2018-03-28] VITALS (15 sets, daily range): BP systolic 128–183; BP diastolic 72–110
[2018-03-28 01:42] LABS: CREATINE KINASE MB FRACTION 1.3 ng/mL (0.5-3.6)
[2018-03-28] MEDS: PIPERACILLIN/TAZ 3.375G PREMIX 50 ML IV SCH ×3 (02:46→17:24)
[2018-03-28] MEDS: LORAZEPAM 2MG/ML CPJ IV PRN (03:00)
[2018-03-28] MEDS: HYDROCODONE/ACETAMINOPHEN 10/325MG TABLET PO PRN (03:00)
[2018-03-28] MEDS: CLONIDINE 0.1MG TABLET PO PRN (03:00)
[2018-03-28] MEDS: VANCOMYCIN 1 G PREMIX 200 ML IV SCH ×2 (08:38→20:12)
[2018-03-28] MEDS: MORPHINE SULFATE 4 MG/ML CPJ (NOT FOR IM USE) IV PRN (08:39)
[2018-03-28 10:01] LABS: CHLORIDE 113 mEq/L (98-107)
[2018-03-28 10:10] LABS: BASOPHILS % 0.3 % (0.0-2.0); EOSINOPHILS % 0.3 % (0.0-5.0); HEMATOCRIT. 28.9 % (36.0-48.0); HEMOGLOBIN. 9.9 g/dL (12.0-16.0); LYMPHOCYTES % 24.8 % (20.0-50.0); MEAN CORPUSCULAR HEMOGLOBIN 31.2 pg (28.0-32.0); MEAN PLATELET VOLUME 8.5 fl (7.4-10.4); MONOCYTES % 8.9 % (2.0-8.0); NEUTROPHILS % 65.7 % (40.0-76.0); PLATELET 527 x1000/uL (130-400); RED BLOOD CELL COUNT 3.18 mill/uL (4.2-5.4); RED CELL DISTRIBUTION WIDTH 14.7 % (11.6-14.6)
[2018-03-28 10:19] LABS: CREATINE KINASE 32 IU/L (26-192); HDL CHOLESTEROL 16 mg/dL (40-59); LDL CHOLESTEROL 26 mg/dL (5-100); T4 FREE 0.93 ng/dL (0.76-1.46)
[2018-03-28] MEDS ORDERED: DIATR MEGLU/DIATRIZOATE SOLN 120ML ONE (12:23)
[2018-03-29] VITALS (9 sets, daily range): BP systolic 128–160; BP diastolic 63–105
[2018-03-29] MEDS: SODIUM CHLORIDE 0.45% 1,000 ML IV SCH ×2 (01:00→20:49)
[2018-03-29] MEDS: PIPERACILLIN/TAZ 3.375G PREMIX 50 ML IV SCH (01:00)
[2018-03-29 06:28] LABS: BASOPHILS % 0.3 % (0.0-2.0); EOSINOPHILS % 0.1 % (0.0-5.0); HEMATOCRIT. 30.6 % (36.0-48.0); HEMOGLOBIN. 10.3 g/dL (12.0-16.0); LYMPHOCYTES % 20.5 % (20.0-50.0); MEAN CORPUSCULAR HEMOGLOBIN 30.5 pg (28.0-32.0); MEAN PLATELET VOLUME 8.3 fl (7.4-10.4); MONOCYTES % 6.1 % (2.0-8.0); PLATELET 518 x1000/uL (130-400); RED BLOOD CELL COUNT 3.36 mill/uL (4.2-5.4); RED CELL DISTRIBUTION WIDTH 15.2 % (11.6-14.6)
[2018-03-29] MEDS: MORPHINE SULFATE 4 MG/ML CPJ (NOT FOR IM USE) IV PRN ×2 (11:30→18:47)
[2018-03-29] MEDS: PIPERACILLIN/TAZ 2.25G PREMIX 50 ML IV SCH ×2 (16:00→20:49)
[2018-03-30] VITALS (12 sets, daily range): BP systolic 143–171; BP diastolic 62–102
[2018-03-30] MEDS: MORPHINE SULFATE 4 MG/ML CPJ (NOT FOR IM USE) IV PRN ×3 (01:23→16:47)
[2018-03-30] MEDS: LORAZEPAM 2MG/ML CPJ IV PRN (02:08)
[2018-03-30] MEDS: PIPERACILLIN/TAZ 2.25G PREMIX 50 ML IV SCH ×2 (05:54→14:12)
[2018-03-30 06:38] LABS: BASOPHILS % 0.3 % (0.0-2.0); EOSINOPHILS % 0.2 % (0.0-5.0); HEMOGLOBIN. 10.5 g/dL (12.0-16.0); LYMPHOCYTES % 17.9 % (20.0-50.0); MEAN CORPUSCULAR HEMOGLOBIN 30.9 pg (28.0-32.0); MEAN CORPUSCULAR VOLUME 91.2 fL (81.0-99.0); MEAN PLATELET VOLUME 7.9 fl (7.4-10.4); MONOCYTES % 6.8 % (2.0-8.0); NEUTROPHILS % 74.8 % (40.0-76.0); PLATELET 447 x1000/uL (130-400); RED CELL DISTRIBUTION WIDTH 15.1 % (11.6-14.6)
[2018-03-30] MEDS: MEROPENEM 500MG in NORMAL SALINE 50ML IV SCH (17:35)
[2018-03-30] MEDS: CLONIDINE 0.1MG TABLET PO PRN (18:43)
[2018-03-31] VITALS (11 sets, daily range): BP systolic 141–159; BP diastolic 68–98
[2018-03-31] MEDS: MORPHINE SULFATE 4 MG/ML CPJ (NOT FOR IM USE) IV PRN ×2 (01:03→17:50)
[2018-03-31] MEDS: SODIUM CHLORIDE 0.45% 1,000 ML IV SCH (01:05)
[2018-03-31] MEDS: MEROPENEM 500MG in NORMAL SALINE 50ML IV SCH ×2 (04:29→17:11)
[2018-03-31] MEDS: LORAZEPAM 2MG/ML CPJ IV PRN (04:34)
[2018-03-31] MEDS ORDERED: DIATR MEGLU/DIATRIZOATE SOLN 120ML ONE (09:35)
[2018-03-31 11:07] LABS: BG BASE EXCESS -12.2 mmol/L (-2.0-2.0); BG DEOXYHEMOGLOBIN 3.3 % (0.0-5.0); BG HCO3 ACT 11.1 mmol/L (22.0-26.0); BG METHEMOGLOBIN 0.1 % (0.0-1.5); BG OXYGEN SATURATION 96.7 % (92.0-98.5); BG OXYHEMOGLOBIN 96.6 % (94.0-97.0); BG PCO2 19.5 mmHg (35.0-45.0); BG PH 7.374 (7.350-7.450); BG PO2 99.4 mmHg (75.0-100.0); BG SAMPLE SITE RIGHT BRACHIAL; BG TOTAL HEMOGLOBIN 10.5 g/dL (12.0-18.0); BG VENT MODE ROOM AIR
[2018-03-31] MEDS: SODIUM BICARBONATE 100 MEQ in DEXTROSE 5% WATER 1,000 ML IV SCH (11:33)
[2018-03-31 11:59] LABS: CREATINE KINASE 34 IU/L (26-192)
[2018-03-31] MEDS: ONDANSETRON HCL 4MG/2ML INJ IV PRN (20:11)
[2018-03-31] MEDS: HYDROCODONE/ACETAMINOPHEN 10/325MG TABLET PO PRN (20:11)
[2018-04-01] VITALS (11 sets, daily range): BP systolic 112–159; BP diastolic 48–95
[2018-04-01] MEDS: MAGNESIUM/ALUMINUM HYDROXIDE/SIMETHICONE 30ML UDC PO PRN ×2 (03:48→22:08)
[2018-04-01] MEDS: ONDANSETRON HCL 4MG/2ML INJ IV PRN ×2 (03:48→22:06)
[2018-04-01] MEDS: MORPHINE SULFATE 4 MG/ML CPJ (NOT FOR IM USE) IV PRN ×3 (03:53→22:08)
[2018-04-01] MEDS: MEROPENEM 500MG in NORMAL SALINE 50ML IV SCH ×2 (05:44→17:18)
[2018-04-01 10:23] LABS: BASOPHILS % 0.2 % (0.0-2.0); EOSINOPHILS % 0.3 % (0.0-5.0); HEMATOCRIT. 33.8 % (36.0-48.0); HEMOGLOBIN. 11.2 g/dL (12.0-16.0); LYMPHOCYTES % 27.9 % (20.0-50.0); MEAN CORPUSCULAR HEMOGLOBIN 29.6 pg (28.0-32.0); MEAN CORPUSCULAR VOLUME 89.5 fL (81.0-99.0); MEAN PLATELET VOLUME 8.5 fl (7.4-10.4); MONOCYTES % 10.9 % (2.0-8.0); NEUTROPHILS % 60.7 % (40.0-76.0); PLATELET 409 x1000/uL (130-400); RED BLOOD CELL COUNT 3.77 mill/uL (4.2-5.4); RED CELL DISTRIBUTION WIDTH 14.9 % (11.6-14.6)
[2018-04-01] MEDS: ACETAMINOPHEN 325MG TABLET PO PRN (11:37)
[2018-04-01] MEDS: SODIUM BICARBONATE 100 MEQ in DEXTROSE 5% WATER 1,000 ML IV SCH (11:39)
[2018-04-02] VITALS (12 sets, daily range): BP systolic 93–168; BP diastolic 55–99
[2018-04-02] MEDS: MEROPENEM 500MG in NORMAL SALINE 50ML IV SCH ×2 (04:11→16:11)
[2018-04-02] MEDS: SODIUM BICARBONATE 100 MEQ in DEXTROSE 5% WATER 1,000 ML IV SCH (04:11)
[2018-04-02] MEDS: MORPHINE SULFATE 4 MG/ML CPJ (NOT FOR IM USE) IV PRN ×3 (04:14→20:47)
[2018-04-02 07:23] LABS: BASOPHILS % 0.2 % (0.0-2.0); EOSINOPHILS % 0.1 % (0.0-5.0); HEMATOCRIT. 28.5 % (36.0-48.0); HEMOGLOBIN. 9.8 g/dL (12.0-16.0); LYMPHOCYTES % 20.6 % (20.0-50.0); MEAN CORPUSCULAR HEMOGLOBIN 30.2 pg (28.0-32.0); MEAN CORPUSCULAR VOLUME 88.3 fL (81.0-99.0); MONOCYTES % 13.2 % (2.0-8.0); NEUTROPHILS % 65.9 % (40.0-76.0); PLATELET 358 x1000/uL (130-400); RED BLOOD CELL COUNT 3.23 mill/uL (4.2-5.4); RED CELL DISTRIBUTION WIDTH 14.8 % (11.6-14.6)
[2018-04-02] MEDS: DEXT 5%/0.45% NACL 1000ML 1,000 ML IV SCH (08:30)
[2018-04-02] MEDS ORDERED: LIDOCAINE HCL 1% 20ML VIAL (Pyxis) INJ ONE (11:18)
[2018-04-02 13:43] LABS: INR 1.2; PARTIAL THROMBOPLASTIN TIME 46.5 sec (23.4-31.0); PROTHROMBIN TIME 11.9 sec (9.1-11.1)
[2018-04-02 14:21] LABS: HEPATITIS B SURFACE ANTIGEN NEGATIVE
[2018-04-02 14:35] LABS: ANTI-NUCLEAR ANTIBODIES DIRECT Negative (Negative)
[2018-04-02 14:42] LABS: COMPLEMENT C3 64 mg/dL (82-167)
[2018-04-02 14:51] LABS: HEPATITIS A AB IGM NEGATIVE (NEGATIVE)
[2018-04-03] VITALS (9 sets, daily range): BP systolic 135–167; BP diastolic 80–96
[2018-04-03] MEDS: MEROPENEM 500MG in NORMAL SALINE 50ML IV SCH ×2 (05:06→16:31)
[2018-04-03] MEDS: MORPHINE SULFATE 4 MG/ML CPJ (NOT FOR IM USE) IV PRN ×4 (05:06→20:58)
[2018-04-03 06:26] LABS: BASOPHILS % 0.2 % (0.0-2.0); EOSINOPHILS % 0.1 % (0.0-5.0); HEMATOCRIT. 32.3 % (36.0-48.0); HEMOGLOBIN. 11.1 g/dL (12.0-16.0); LYMPHOCYTES % 18.2 % (20.0-50.0); MEAN CORPUSCULAR HEMOGLOBIN 30.5 pg (28.0-32.0); MEAN CORPUSCULAR VOLUME 88.5 fL (81.0-99.0); MEAN PLATELET VOLUME 9.1 fl (7.4-10.4); MONOCYTES % 9.1 % (2.0-8.0); NEUTROPHILS % 72.4 % (40.0-76.0); PLATELET 387 x1000/uL (130-400); RED BLOOD CELL COUNT 3.65 mill/uL (4.2-5.4); RED CELL DISTRIBUTION WIDTH 14.8 % (11.6-14.6)
[2018-04-03] MEDS ORDERED: DIATR MEGLU/DIATRIZOATE SOLN 120ML ONE (08:41)
[2018-04-03] MEDS ORDERED: KCL 20MEQ/100ML PREMIX 100 ML IV NR (12:00)
[2018-04-03 13:27] LABS: PHOSPHORUS 3.7 mg/dL (2.5-4.9)
[2018-04-03] MEDS: DEXT 5%/0.45% NACL 1000ML 1,000 ML IV SCH (15:34)
[2018-04-03] MEDS ORDERED: TOTAL PARENTERAL NUTRITION 1,900 ML IV SCH (21:00)
[2018-04-03] MEDS: FAT EMULSIONS 500 ML IV SCH (21:21)
[2018-04-04] VITALS (7 sets, daily range): BP systolic 142–167; BP diastolic 80–100
[2018-04-04] MEDS: MORPHINE SULFATE 4 MG/ML CPJ (NOT FOR IM USE) IV PRN ×5 (00:52→20:43)
[2018-04-04] MEDS: ACETAMINOPHEN 325MG TABLET PO PRN (00:53)
[2018-04-04] MEDS: MEROPENEM 500MG in NORMAL SALINE 50ML IV SCH ×2 (05:26→16:16)
[2018-04-04 07:47] LABS: HEMOGLOBIN. 9.8 g/dL (12.0-16.0); MEAN CORPUSCULAR HEMOGLOBIN 31.1 pg (28.0-32.0); MEAN CORPUSCULAR VOLUME 89.2 fL (81.0-99.0); MEAN PLATELET VOLUME 8.8 fl (7.4-10.4); PLATELET 344 x1000/uL (130-400); RED BLOOD CELL COUNT 3.14 mill/uL (4.2-5.4); RED CELL DISTRIBUTION WIDTH 14.4 % (11.6-14.6)
[2018-04-04] MEDS ORDERED: DEXT 5% WATER + KCL 40MEQ/L 1,000 ML IV ONE (09:00)
[2018-04-04] MEDS ORDERED: POTASSIUM CHLORIDE INJ 40 MEQ in DEXT 5% WATER 250 ML IV NR (10:00)
[2018-04-04] MEDS ORDERED: POTASSIUM CHLORIDE INJ 60 MEQ in DEXT 5% WATER 500 ML IV NR (13:00)
[2018-04-04 13:59] LABS: PLATELET ESTIMATE NORMAL
[2018-04-04] MEDS ORDERED: TOTAL PARENTERAL NUTRITION 1,900 ML IV SCH (18:00)
[2018-04-04] MEDS: ONDANSETRON HCL 4MG/2ML INJ IV PRN (20:43)
[2018-04-05] VITALS (13 sets, daily range): BP systolic 139–168; BP diastolic 88–100
[2018-04-05] MEDS ORDERED: POTASSIUM CHLORIDE INJ 40 MEQ in DEXT 5% WATER 250 ML IV NR (01:00)
[2018-04-05] MEDS: MORPHINE SULFATE 4 MG/ML CPJ (NOT FOR IM USE) IV PRN ×4 (03:10→21:50)
[2018-04-05] MEDS: MEROPENEM 500MG in NORMAL SALINE 50ML IV SCH ×2 (04:47→17:21)
[2018-04-05 06:59] LABS: HEMATOCRIT. 24.4 % (36.0-48.0); HEMOGLOBIN. 8.1 g/dL (12.0-16.0); LYMPHOCYTES % 23.6 % (20.0-50.0); MEAN CORPUSCULAR HEMOGLOBIN 29.8 pg (28.0-32.0); MEAN CORPUSCULAR VOLUME 89.4 fL (81.0-99.0); MONOCYTES % 12.3 % (2.0-8.0); NEUTROPHILS % 64.1 % (40.0-76.0); PLATELET 292 x1000/uL (130-400); RED BLOOD CELL COUNT 2.73 mill/uL (4.2-5.4); RED CELL DISTRIBUTION WIDTH 14.6 % (11.6-14.6)
[2018-04-05 07:37] LABS: CHLORIDE 103 mEq/L (98-107)
[2018-04-05] MEDS ORDERED: POTASSIUM CHLORIDE INJ 40 MEQ in DEXT 5% WATER 250 ML IV ONE (08:15)
[2018-04-05] MEDS ORDERED: MAGNESIUM SULFATE 2 GM in DEXTROSE 5% WATER 50 ML IV NR (09:00)
[2018-04-05] MEDS ORDERED: POTASSIUM PHOS,M-BASIC-D-BASIC 20 MMOL in DEXT 5% WATER 243.3333 ML IV NR (09:00)
[2018-04-05] MEDS: OCTREOTIDE ACETATE 50 MCG/ML 1ML SUBCUT SCH ×2 (14:40→21:34)
[2018-04-05] MEDS ORDERED: TOTAL PARENTERAL NUTRITION 1,900 ML IV SCH (21:00)
[2018-04-05] MEDS: ACETAMINOPHEN 325MG TABLET PO PRN (22:20)
[2018-04-05] MEDS: ONDANSETRON HCL 4MG/2ML INJ IV PRN (22:36)
[2018-04-06] VITALS (15 sets, daily range): BP systolic 138–177; BP diastolic 78–99
[2018-04-06] MEDS: MORPHINE SULFATE 4 MG/ML CPJ (NOT FOR IM USE) IV PRN ×5 (02:36→21:02)
[2018-04-06] MEDS: MEROPENEM 500MG in NORMAL SALINE 50ML IV SCH ×2 (05:44→17:00)
[2018-04-06] MEDS: CLONIDINE 0.1MG TABLET PO PRN ×2 (05:54→14:57)
[2018-04-06] MEDS: OCTREOTIDE ACETATE 50 MCG/ML 1ML SUBCUT SCH ×3 (05:54→23:10)
[2018-04-06 07:02] LABS: BASOPHILS % 0.8 % (0.0-2.0); HEMATOCRIT. 22.9 % (36.0-48.0); HEMOGLOBIN. 7.6 g/dL (12.0-16.0); LYMPHOCYTES % 29.1 % (20.0-50.0); MEAN CORPUSCULAR HEMOGLOBIN 29.8 pg (28.0-32.0); MEAN CORPUSCULAR VOLUME 89.6 fL (81.0-99.0); MEAN PLATELET VOLUME 9.2 fl (7.4-10.4); MONOCYTES % 10.9 % (2.0-8.0); NEUTROPHILS % 59.2 % (40.0-76.0); PLATELET 253 x1000/uL (130-400); RED BLOOD CELL COUNT 2.56 mill/uL (4.2-5.4); RED CELL DISTRIBUTION WIDTH 14.7 % (11.6-14.6)
[2018-04-06 07:45] LABS: CHLORIDE 105 mEq/L (98-107)
[2018-04-06 07:50] LABS: PHOSPHORUS 2.2 mg/dL (2.5-4.9)
[2018-04-06] MEDS ORDERED: SODIUM PHOS,M-BASIC-D-BASIC 15 MM in DEXT 5% WATER 245 ML IV SCH (11:00)
[2018-04-06] MEDS ORDERED: TOTAL PARENTERAL NUTRITION 1,900 ML IV SCH (21:00)
[2018-04-06] MEDS: FAT EMULSIONS 500 ML IV SCH (21:06)
[2018-04-06] MEDS: ZOLPIDEM TARTRATE 5MG TABLET PO PRN (23:09)
[2018-04-06 23:40] LABS: HEMATOCRIT 23.2 % (36.0-48.0); HEMOGLOBIN 8.5 g/dL (12.0-16.0)
[2018-04-07] VITALS (11 sets, daily range): BP systolic 131–197; BP diastolic 58–96
[2018-04-07] MEDS: CLONIDINE 0.1MG TABLET PO PRN ×3 (01:13→21:15)
[2018-04-07] MEDS: MORPHINE SULFATE 4 MG/ML CPJ (NOT FOR IM USE) IV PRN ×5 (03:12→21:12)
[2018-04-07] MEDS: OCTREOTIDE ACETATE 50 MCG/ML 1ML SUBCUT SCH ×3 (07:31→23:32)
[2018-04-07 09:26] LABS: BASOPHILS % 1.1 % (0.0-2.0); EOSINOPHILS % 0.8 % (0.0-5.0); HEMATOCRIT. 25.5 % (36.0-48.0); HEMOGLOBIN. 8.6 g/dL (12.0-16.0); LYMPHOCYTES % 47.5 % (20.0-50.0); MEAN CORPUSCULAR HEMOGLOBIN 30.2 pg (28.0-32.0); MEAN CORPUSCULAR VOLUME 89.2 fL (81.0-99.0); MEAN PLATELET VOLUME 9.3 fl (7.4-10.4); MONOCYTES % 8.5 % (2.0-8.0); NEUTROPHILS % 42.1 % (40.0-76.0); PLATELET 183 x1000/uL (130-400); RED BLOOD CELL COUNT 2.85 mill/uL (4.2-5.4); RED CELL DISTRIBUTION WIDTH 14.2 % (11.6-14.6)
[2018-04-07 09:38] LABS: CHLORIDE 109 mEq/L (98-107)
[2018-04-07 09:40] LABS: PHOSPHORUS 2.9 mg/dL (2.5-4.9)
[2018-04-07] MEDS: HYDRALAZINE HCL 50MG TABLET PO SCH ×3 (12:10→16:49)
[2018-04-07] MEDS: AMLODIPINE 10MG TABLET PO SCH (12:10)
[2018-04-07] MEDS ORDERED: CLONIDINE HCL 0.2MG/24HR PATCH TD SCH (15:00)
[2018-04-07] MEDS: ACETAMINOPHEN 325MG TABLET PO PRN (15:16)
[2018-04-07] MEDS ORDERED: TOTAL PARENTERAL NUTRITION 1,900 ML IV SCH (21:00)
[2018-04-07] MEDS: ZOLPIDEM TARTRATE 5MG TABLET PO PRN (21:12)
[2018-04-08] VITALS (12 sets, daily range): BP systolic 156–188; BP diastolic 93–113
[2018-04-08] MEDS: MORPHINE SULFATE 4 MG/ML CPJ (NOT FOR IM USE) IV PRN ×5 (03:59→21:49)
[2018-04-08] MEDS: ACETAMINOPHEN 325MG TABLET PO PRN ×2 (06:31→20:57)
[2018-04-08] MEDS: OCTREOTIDE ACETATE 50 MCG/ML 1ML SUBCUT SCH ×3 (07:42→21:25)
[2018-04-08] MEDS: AMLODIPINE 10MG TABLET PO SCH (08:00)
[2018-04-08] MEDS: HYDRALAZINE HCL 50MG TABLET PO SCH ×3 (08:00→17:08)
[2018-04-08 11:47] LABS: CHLORIDE 113 mEq/L (98-107)
[2018-04-08 11:52] LABS: BASOPHILS % 1.1 % (0.0-2.0); EOSINOPHILS % 0.3 % (0.0-5.0); HEMATOCRIT. 21.5 % (36.0-48.0); HEMOGLOBIN. 7.3 g/dL (12.0-16.0); LYMPHOCYTES % 45.6 % (20.0-50.0); MEAN CORPUSCULAR HEMOGLOBIN 30.6 pg (28.0-32.0); MEAN PLATELET VOLUME 9.5 fl (7.4-10.4); MONOCYTES % 11.6 % (2.0-8.0); NEUTROPHILS % 41.4 % (40.0-76.0); PLATELET 223 x1000/uL (130-400); RED BLOOD CELL COUNT 2.38 mill/uL (4.2-5.4); RED CELL DISTRIBUTION WIDTH 14.6 % (11.6-14.6)
[2018-04-08 11:58] LABS: PHOSPHORUS 2.5 mg/dL (2.5-4.9)
[2018-04-08] MEDS: CLONIDINE 0.1MG TABLET PO PRN (14:13)
[2018-04-08] MEDS ORDERED: TOTAL PARENTERAL NUTRITION 1,900 ML IV SCH (21:00)
[2018-04-08] MEDS: FAT EMULSIONS 500 ML IV SCH (21:06)
[2018-04-08] MEDS: ZOLPIDEM TARTRATE 5MG TABLET PO PRN (21:54)
[2018-04-09] VITALS (14 sets, daily range): BP systolic 137–175; BP diastolic 64–98
[2018-04-09] MEDS: CLONIDINE 0.1MG TABLET PO PRN ×2 (01:16→13:07)
[2018-04-09] MEDS: MORPHINE SULFATE 4 MG/ML CPJ (NOT FOR IM USE) IV PRN ×5 (01:59→20:52)
[2018-04-09] MEDS: OCTREOTIDE ACETATE 50 MCG/ML 1ML SUBCUT SCH ×3 (06:00→20:53)
[2018-04-09] MEDS: HYDRALAZINE HCL 50MG TABLET PO SCH ×3 (08:30→17:14)
[2018-04-09] MEDS: AMLODIPINE 10MG TABLET PO SCH (08:30)
[2018-04-09 10:17] LABS: BASOPHILS % 0.8 % (0.0-2.0); EOSINOPHILS % 0.3 % (0.0-5.0); HEMATOCRIT. 23.9 % (36.0-48.0); HEMOGLOBIN. 8.2 g/dL (12.0-16.0); LYMPHOCYTES % 38.6 % (20.0-50.0); MEAN CORPUSCULAR HEMOGLOBIN 30.6 pg (28.0-32.0); MEAN CORPUSCULAR VOLUME 89.8 fL (81.0-99.0); MONOCYTES % 8.1 % (2.0-8.0); NEUTROPHILS % 52.2 % (40.0-76.0); PLATELET 213 x1000/uL (130-400); RED BLOOD CELL COUNT 2.67 mill/uL (4.2-5.4); RED CELL DISTRIBUTION WIDTH 14.5 % (11.6-14.6)
[2018-04-09] MEDS ORDERED: DEXTROSE 50% WATER 50ML SYRINGE IV PRN (10:30)
[2018-04-09 10:31] LABS: CHLORIDE 111 mEq/L (98-107)
[2018-04-09] MEDS: INSULIN LISPRO 100 UNITS/ML SUBCUT SCH ×2 (12:17→17:14)
[2018-04-09] MEDS: BLOOD SUGAR DIAGNOSTIC STRIP TEST SCH ×2 (12:17→17:14)
[2018-04-09] MEDS: ZOLPIDEM TARTRATE 5MG TABLET PO PRN (20:52)
[2018-04-09] MEDS: TOTAL PARENTERAL NUTRITION 1,900 ML IV SCH (21:15)
[2018-04-10] VITALS (17 sets, daily range): BP systolic 156–185; BP diastolic 74–112
[2018-04-10] MEDS: MORPHINE SULFATE 4 MG/ML CPJ (NOT FOR IM USE) IV PRN ×5 (02:29→22:19)
[2018-04-10] MEDS: OCTREOTIDE ACETATE 50 MCG/ML 1ML SUBCUT SCH ×3 (06:00→22:06)
[2018-04-10 07:42] LABS: BASOPHILS % 2.1 % (0.0-2.0); EOSINOPHILS % 0.4 % (0.0-5.0); LYMPHOCYTES % 39.2 % (20.0-50.0); MEAN CORPUSCULAR HEMOGLOBIN 30.3 pg (28.0-32.0); MEAN CORPUSCULAR VOLUME 89.8 fL (81.0-99.0); MONOCYTES % 12.2 % (2.0-8.0); NEUTROPHILS % 46.1 % (40.0-76.0); PLATELET 227 x1000/uL (130-400); RED BLOOD CELL COUNT 2.26 mill/uL (4.2-5.4); RED CELL DISTRIBUTION WIDTH 14.6 % (11.6-14.6)
[2018-04-10 07:57] LABS: HEMATOCRIT. 20.3 % (36.0-48.0); HEMOGLOBIN. 6.8 g/dL (12.0-16.0)
[2018-04-10 07:58] LABS: CHLORIDE 115 mEq/L (98-107)
[2018-04-10] MEDS: HYDRALAZINE HCL 50MG TABLET PO SCH ×3 (08:58→17:22)
[2018-04-10] MEDS: AMLODIPINE 10MG TABLET PO SCH (08:59)
[2018-04-10] MEDS: BLOOD SUGAR DIAGNOSTIC STRIP TEST SCH ×3 (12:00→18:00)
[2018-04-10] MEDS: INSULIN LISPRO 100 UNITS/ML SUBCUT SCH ×3 (12:00→18:00)
[2018-04-10] MEDS: CLONIDINE 0.1MG TABLET PO PRN ×2 (13:05→23:11)
[2018-04-10 19:29] LABS: HEMATOCRIT 25.4 % (36.0-48.0); HEMOGLOBIN 8.7 g/dL (12.0-16.0)
[2018-04-10] MEDS ORDERED: TOTAL PARENTERAL NUTRITION 1,900 ML IV SCH (21:00)
[2018-04-10] MEDS: TOTAL PARENTERAL NUTRITION 1,900 ML IV SCH (21:00)
[2018-04-10] MEDS: FAT EMULSIONS 500 ML IV SCH (22:06)
[2018-04-10] MEDS: ZOLPIDEM TARTRATE 5MG TABLET PO PRN (22:17)
[2018-04-11] VITALS (12 sets, daily range): BP systolic 137–186; BP diastolic 83–100
[2018-04-11] MEDS: OCTREOTIDE ACETATE 50 MCG/ML 1ML SUBCUT SCH ×3 (05:19→21:32)
[2018-04-11] MEDS: BLOOD SUGAR DIAGNOSTIC STRIP TEST SCH ×4 (05:19→18:32)
[2018-04-11] MEDS: MORPHINE SULFATE 4 MG/ML CPJ (NOT FOR IM USE) IV PRN ×4 (05:20→21:34)
[2018-04-11] MEDS: INSULIN LISPRO 100 UNITS/ML SUBCUT SCH ×4 (06:00→18:00)
[2018-04-11 06:32] LABS: BASOPHILS % 1.5 % (0.0-2.0); EOSINOPHILS % 0.7 % (0.0-5.0); HEMATOCRIT. 24.1 % (36.0-48.0); LYMPHOCYTES % 37.7 % (20.0-50.0); MEAN CORPUSCULAR VOLUME 89.1 fL (81.0-99.0); MEAN PLATELET VOLUME 10.6 fl (7.4-10.4); MONOCYTES % 9.2 % (2.0-8.0); NEUTROPHILS % 50.9 % (40.0-76.0); PLATELET 293 x1000/uL (130-400); RED BLOOD CELL COUNT 2.71 mill/uL (4.2-5.4); RED CELL DISTRIBUTION WIDTH 14.8 % (11.6-14.6)
[2018-04-11] MEDS ORDERED: HYDRALAZINE 20MG/ML VIAL IV PRN (07:30)
[2018-04-11] MEDS: HYDRALAZINE HCL 50MG TABLET PO SCH ×3 (08:48→17:53)
[2018-04-11] MEDS: CLONIDINE 0.1MG TABLET PO PRN (08:48)
[2018-04-11] MEDS: AMLODIPINE 10MG TABLET PO SCH (08:49)
[2018-04-11 08:54] LABS: HEMOGLOBIN. 9.3 g/dL (12.0-16.0); MEAN CORPUSCULAR HEMOGLOBIN 34.3 pg (28.0-32.0)
[2018-04-11 08:56] LABS: CHLORIDE 116 mEq/L (98-107)
[2018-04-11] MEDS ORDERED: MORPHINE SULFATE 4 MG/ML CPJ (NOT FOR IM USE) IV PRN (20:15)
[2018-04-11] MEDS ORDERED: TOTAL PARENTERAL NUTRITION 1,900 ML IV SCH (21:00)
[2018-04-12] VITALS (12 sets, daily range): BP systolic 138–166; BP diastolic 60–100
[2018-04-12] MEDS: BLOOD SUGAR DIAGNOSTIC STRIP TEST SCH ×4 (00:22→17:47)
[2018-04-12] MEDS: MORPHINE SULFATE 4 MG/ML CPJ (NOT FOR IM USE) IV PRN ×3 (01:51→21:15)
[2018-04-12] MEDS: INSULIN LISPRO 100 UNITS/ML SUBCUT SCH ×4 (06:00→17:51)
[2018-04-12 06:03] LABS: CHLORIDE 113 mEq/L (98-107)
[2018-04-12 06:06] LABS: PHOSPHORUS 2.9 mg/dL (2.5-4.9)
[2018-04-12 06:15] LABS: BASOPHILS % 1.2 % (0.0-2.0); EOSINOPHILS % 0.2 % (0.0-5.0); HEMATOCRIT. 23.6 % (36.0-48.0); HEMOGLOBIN. 8.2 g/dL (12.0-16.0); LYMPHOCYTES % 20.7 % (20.0-50.0); MEAN CORPUSCULAR VOLUME 88.9 fL (81.0-99.0); MONOCYTES % 14.8 % (2.0-8.0); NEUTROPHILS % 63.1 % (40.0-76.0); PLATELET 258 x1000/uL (130-400); RED BLOOD CELL COUNT 2.65 mill/uL (4.2-5.4); RED CELL DISTRIBUTION WIDTH 14.5 % (11.6-14.6)
[2018-04-12] MEDS: OCTREOTIDE ACETATE 50 MCG/ML 1ML SUBCUT SCH ×3 (08:23→22:12)
[2018-04-12] MEDS: AMLODIPINE 10MG TABLET PO SCH (08:24)
[2018-04-12] MEDS: HYDRALAZINE HCL 50MG TABLET PO SCH ×3 (08:24→22:11)
[2018-04-12] MEDS ORDERED: TOTAL PARENTERAL NUTRITION 1,900 ML IV SCH (21:00)
[2018-04-13] VITALS (9 sets, daily range): BP systolic 142–169; BP diastolic 71–98
[2018-04-13] MEDS: MORPHINE SULFATE 4 MG/ML CPJ (NOT FOR IM USE) IV PRN ×4 (04:24→21:08)
[2018-04-13] MEDS: OCTREOTIDE ACETATE 50 MCG/ML 1ML SUBCUT SCH ×3 (06:00→21:06)
[2018-04-13] MEDS: INSULIN LISPRO 100 UNITS/ML SUBCUT SCH ×5 (06:00→23:43)
[2018-04-13] MEDS: BLOOD SUGAR DIAGNOSTIC STRIP TEST SCH ×5 (06:00→23:43)
[2018-04-13] MEDS: HYDRALAZINE HCL 50MG TABLET PO SCH ×3 (06:19→21:07)
[2018-04-13] MEDS: AMLODIPINE 10MG TABLET PO SCH (09:15)
[2018-04-13] MEDS: CLONIDINE 0.1MG TABLET PO PRN (09:16)
[2018-04-13] MEDS ORDERED: TOTAL PARENTERAL NUTRITION 1,900 ML IV SCH (21:00)
[2018-04-13] MEDS: FAT EMULSIONS 500 ML IV SCH (21:04)
[2018-04-13] MEDS: ZOLPIDEM TARTRATE 5MG TABLET PO PRN (21:46)
[2018-04-14] VITALS (8 sets, daily range): BP systolic 128–177; BP diastolic 68–88
[2018-04-14] MEDS: MORPHINE SULFATE 4 MG/ML CPJ (NOT FOR IM USE) IV PRN ×4 (01:58→21:18)
[2018-04-14] MEDS: INSULIN LISPRO 100 UNITS/ML SUBCUT SCH ×3 (05:07→17:10)
[2018-04-14] MEDS: BLOOD SUGAR DIAGNOSTIC STRIP TEST SCH ×3 (05:07→17:09)
[2018-04-14] MEDS: HYDRALAZINE HCL 50MG TABLET PO SCH ×3 (06:23→21:18)
[2018-04-14] MEDS: OCTREOTIDE ACETATE 50 MCG/ML 1ML SUBCUT SCH ×3 (06:25→23:01)
[2018-04-14 06:40] LABS: CHLORIDE 109 mEq/L (98-107)
[2018-04-14 06:45] LABS: PHOSPHORUS 3.2 mg/dL (2.5-4.9)
[2018-04-14 08:41] LABS: HEMOGLOBIN. 9.8 g/dL (12.0-16.0); RED BLOOD CELL COUNT 2.87 mill/uL (4.2-5.4)
[2018-04-14 08:42] LABS: HEMATOCRIT. 26.1 % (36.0-48.0); MEAN CORPUSCULAR VOLUME 90.7 fL (81.0-99.0); PLATELET 383 x1000/uL (130-400); RED CELL DISTRIBUTION WIDTH 14.7 % (11.6-14.6)
[2018-04-14 08:43] LABS: BASOPHILS % 1.1 % (0.0-2.0); EOSINOPHILS % 0.9 % (0.0-5.0); LYMPHOCYTES % 30.3 % (20.0-50.0); MEAN PLATELET VOLUME 10.2 fl (7.4-10.4); MONOCYTES % 10.1 % (2.0-8.0); NEUTROPHILS % 57.6 % (40.0-76.0)
[2018-04-14] MEDS: AMLODIPINE 10MG TABLET PO SCH (09:23)
[2018-04-14] MEDS: CLONIDINE HCL 0.2MG/24HR PATCH TD SCH (09:24)
[2018-04-14] MEDS ORDERED: TOTAL PARENTERAL NUTRITION 1,900 ML IV SCH (21:00)
[2018-04-14] MEDS: ZOLPIDEM TARTRATE 5MG TABLET PO PRN (23:01)
[2018-04-15] VITALS: BP 140/92
[2018-04-15] MEDS: ACETAMINOPHEN 325MG TABLET PO PRN (02:00)
[2018-04-15 04:00] VITALS: BP 146/74
[2018-04-15] MEDS: MORPHINE SULFATE 4 MG/ML CPJ (NOT FOR IM USE) IV PRN ×5 (04:36→20:35)
[2018-04-15] MEDS: HYDRALAZINE HCL 50MG TABLET PO SCH ×3 (05:27→21:13)
[2018-04-15] MEDS: OCTREOTIDE ACETATE 50 MCG/ML 1ML SUBCUT SCH ×3 (05:27→21:14)
[2018-04-15] MEDS: INSULIN LISPRO 100 UNITS/ML SUBCUT SCH ×4 (06:00→18:00)
[2018-04-15] MEDS: BLOOD SUGAR DIAGNOSTIC STRIP TEST SCH ×4 (06:46→18:01)
[2018-04-15 08:00] VITALS: BP 139/75
[2018-04-15] MEDS: AMLODIPINE 10MG TABLET PO SCH (09:35)
[2018-04-15 12:00] VITALS: BP 138/78
[2018-04-15 16:00] VITALS: BP 122/71
[2018-04-15 20:00] VITALS: BP 140/74
[2018-04-15] MEDS: FAT EMULSIONS 500 ML IV SCH (20:34)
[2018-04-15] MEDS ORDERED: TOTAL PARENTERAL NUTRITION 1,900 ML IV SCH (21:00)
[2018-04-15] MEDS: ZOLPIDEM TARTRATE 5MG TABLET PO PRN (21:14)
[2018-04-16] VITALS: BP 153/88
[2018-04-16] MEDS: BLOOD SUGAR DIAGNOSTIC STRIP TEST SCH ×4 (00:15→17:11)
[2018-04-16 04:00] VITALS: BP 159/82
[2018-04-16] MEDS: OCTREOTIDE ACETATE 50 MCG/ML 1ML SUBCUT SCH ×3 (05:52→23:01)
[2018-04-16] MEDS: HYDRALAZINE HCL 50MG TABLET PO SCH ×3 (05:52→23:01)
[2018-04-16] MEDS: MORPHINE SULFATE 4 MG/ML CPJ (NOT FOR IM USE) IV PRN ×4 (05:53→20:36)
[2018-04-16] MEDS: INSULIN LISPRO 100 UNITS/ML SUBCUT SCH ×4 (06:00→17:11)
[2018-04-16 07:31] LABS: EOSINOPHILS % 0.4 % (0.0-5.0); HEMATOCRIT. 27.6 % (36.0-48.0); HEMOGLOBIN. 9.3 g/dL (12.0-16.0); LYMPHOCYTES % 23.8 % (20.0-50.0); MEAN CORPUSCULAR HEMOGLOBIN 30.7 pg (28.0-32.0); MEAN CORPUSCULAR VOLUME 90.6 fL (81.0-99.0); MEAN PLATELET VOLUME 9.7 fl (7.4-10.4); MONOCYTES % 6.5 % (2.0-8.0); NEUTROPHILS % 68.3 % (40.0-76.0); PLATELET 436 x1000/uL (130-400); RED BLOOD CELL COUNT 3.04 mill/uL (4.2-5.4); RED CELL DISTRIBUTION WIDTH 14.5 % (11.6-14.6)
[2018-04-16 08:00] VITALS: BP 130/81
[2018-04-16] MEDS: AMLODIPINE 10MG TABLET PO SCH (08:43)
[2018-04-16 08:52] LABS: CHLORIDE 109 mEq/L (98-107)
[2018-04-16] MEDS ORDERED: TOTAL PARENTERAL NUTRITION 1,900 ML IV SCH ×2 (09:30→21:00)
[2018-04-16 12:00] VITALS: BP 137/75
[2018-04-16] MEDS ORDERED: MORPHINE SULFATE 2 MG/ML CPJ (NOT FOR IM USE) IV NR (15:30)
[2018-04-16 16:00] VITALS: BP 139/80
[2018-04-16] MEDS ORDERED: MORPHINE SULFATE 4 MG/ML CPJ (NOT FOR IM USE) IV NR (16:01)
[2018-04-16 20:00] VITALS: BP 101/58
[2018-04-16] MEDS: ZOLPIDEM TARTRATE 5MG TABLET PO PRN (23:01)
[2018-04-17] VITALS: BP 111/69
[2018-04-17] MEDS: BLOOD SUGAR DIAGNOSTIC STRIP TEST SCH ×4 (00:41→17:47)
[2018-04-17] MEDS: MORPHINE SULFATE 4 MG/ML CPJ (NOT FOR IM USE) IV PRN ×4 (00:54→21:49)
[2018-04-17 04:00] VITALS: BP 128/71
[2018-04-17] MEDS: HYDRALAZINE HCL 50MG TABLET PO SCH ×3 (05:39→21:14)
[2018-04-17] MEDS: OCTREOTIDE ACETATE 50 MCG/ML 1ML SUBCUT SCH ×3 (05:40→21:17)
[2018-04-17] MEDS: INSULIN LISPRO 100 UNITS/ML SUBCUT SCH ×4 (06:00→17:47)
[2018-04-17 08:00] VITALS: BP 112/72
[2018-04-17] MEDS: AMLODIPINE 10MG TABLET PO SCH (09:08)
[2018-04-17 11:18] LABS: BASOPHILS % 1.1 % (0.0-2.0); EOSINOPHILS % 0.5 % (0.0-5.0); HEMATOCRIT. 28.8 % (36.0-48.0); HEMOGLOBIN. 9.5 g/dL (12.0-16.0); LYMPHOCYTES % 23.5 % (20.0-50.0); MEAN CORPUSCULAR HEMOGLOBIN 29.9 pg (28.0-32.0); MEAN CORPUSCULAR VOLUME 90.9 fL (81.0-99.0); MEAN PLATELET VOLUME 10.1 fl (7.4-10.4); MONOCYTES % 13.8 % (2.0-8.0); NEUTROPHILS % 61.1 % (40.0-76.0); PLATELET 459 x1000/uL (130-400); RED BLOOD CELL COUNT 3.17 mill/uL (4.2-5.4)
[2018-04-17 12:00] VITALS: BP 106/58
[2018-04-17 16:00] VITALS: BP 129/77
[2018-04-17 17:02] LABS: CHLORIDE 111 mEq/L (98-107)
[2018-04-17 20:00] VITALS: BP 106/76
[2018-04-17] MEDS ORDERED: TOTAL PARENTERAL NUTRITION 1,900 ML IV SCH (21:00)
[2018-04-17] MEDS: FAT EMULSIONS 500 ML IV SCH (21:16)
[2018-04-18] VITALS: BP 133/80
[2018-04-18] MEDS: MORPHINE SULFATE 4 MG/ML CPJ (NOT FOR IM USE) IV PRN ×3 (02:51→20:00)
[2018-04-18 04:00] VITALS: BP 136/78
[2018-04-18] MEDS: INSULIN LISPRO 100 UNITS/ML SUBCUT SCH ×4 (06:00→18:00)
[2018-04-18] MEDS: OCTREOTIDE ACETATE 50 MCG/ML 1ML SUBCUT SCH ×3 (06:35→21:05)
[2018-04-18] MEDS: HYDROCODONE/ACETAMINOPHEN 10/325MG TABLET PO PRN ×2 (06:36→21:58)
[2018-04-18] MEDS: BLOOD SUGAR DIAGNOSTIC STRIP TEST SCH ×4 (06:38→18:23)
[2018-04-18 06:50] LABS: BASOPHILS % 1.3 % (0.0-2.0); EOSINOPHILS % 1.5 % (0.0-5.0); HEMATOCRIT. 29.3 % (36.0-48.0); HEMOGLOBIN. 9.5 g/dL (12.0-16.0); LYMPHOCYTES % 24.6 % (20.0-50.0); MEAN CORPUSCULAR HEMOGLOBIN 30.3 pg (28.0-32.0); MEAN CORPUSCULAR VOLUME 93.8 fL (81.0-99.0); MEAN PLATELET VOLUME 9.3 fl (7.4-10.4); MONOCYTES % 8.5 % (2.0-8.0); NEUTROPHILS % 64.1 % (40.0-76.0); PLATELET 464 x1000/uL (130-400); RED BLOOD CELL COUNT 3.12 mill/uL (4.2-5.4); RED CELL DISTRIBUTION WIDTH 15.1 % (11.6-14.6)
[2018-04-18] MEDS: HYDRALAZINE HCL 50MG TABLET PO SCH ×3 (06:55→21:05)
[2018-04-18 07:28] LABS: CHLORIDE 109 mEq/L (98-107)
[2018-04-18 08:00] VITALS: BP 125/72
[2018-04-18] MEDS: AMLODIPINE 10MG TABLET PO SCH (09:02)
[2018-04-18 12:00] VITALS: BP 129/63
[2018-04-18 16:00] VITALS: BP 121/71
[2018-04-18 20:00] VITALS: BP 139/86
[2018-04-18] MEDS ORDERED: TOTAL PARENTERAL NUTRITION 1,900 ML IV SCH (21:00)
[2018-04-19] VITALS: BP 119/69
[2018-04-19] MEDS: MORPHINE SULFATE 4 MG/ML CPJ (NOT FOR IM USE) IV PRN ×4 (01:49→21:22)
[2018-04-19 04:00] VITALS: BP 125/68
[2018-04-19] MEDS: BLOOD SUGAR DIAGNOSTIC STRIP TEST SCH ×4 (05:47→17:00)
[2018-04-19] MEDS: INSULIN LISPRO 100 UNITS/ML SUBCUT SCH ×4 (05:47→17:00)
[2018-04-19] MEDS: HYDRALAZINE HCL 50MG TABLET PO SCH ×3 (06:22→21:21)
[2018-04-19] MEDS: HYDROCODONE/ACETAMINOPHEN 10/325MG TABLET PO PRN ×2 (06:22→12:40)
[2018-04-19] MEDS: OCTREOTIDE ACETATE 50 MCG/ML 1ML SUBCUT SCH ×3 (06:22→21:21)
[2018-04-19 08:00] VITALS: BP 125/71
[2018-04-19] MEDS: AMLODIPINE 10MG TABLET PO SCH (08:29)
[2018-04-19 12:00] VITALS: BP 143/77
[2018-04-19 12:13] LABS: CHLORIDE 110 mEq/L (98-107)
[2018-04-19 13:01] LABS: BASOPHILS % 0.8 % (0.0-2.0); EOSINOPHILS % 1.4 % (0.0-5.0); HEMATOCRIT. 29.7 % (36.0-48.0); HEMOGLOBIN. 9.8 g/dL (12.0-16.0); MEAN CORPUSCULAR HEMOGLOBIN 30.1 pg (28.0-32.0); MEAN CORPUSCULAR VOLUME 90.8 fL (81.0-99.0); MONOCYTES % 13.3 % (2.0-8.0); NEUTROPHILS % 45.5 % (40.0-76.0); PLATELET 522 x1000/uL (130-400); RED BLOOD CELL COUNT 3.27 mill/uL (4.2-5.4); RED CELL DISTRIBUTION WIDTH 15.1 % (11.6-14.6)
[2018-04-19 16:00] VITALS: BP 140/69
[2018-04-19 20:00] VITALS: BP 102/65
[2018-04-19] MEDS ORDERED: TOTAL PARENTERAL NUTRITION 1,900 ML IV SCH (21:00)
[2018-04-20] VITALS: BP 107/69
[2018-04-20] MEDS: MORPHINE SULFATE 4 MG/ML CPJ (NOT FOR IM USE) IV PRN ×4 (03:24→19:23)
[2018-04-20 04:00] VITALS: BP 141/72
[2018-04-20] MEDS: HYDROCODONE/ACETAMINOPHEN 10/325MG TABLET PO PRN ×2 (05:46→22:12)
[2018-04-20] MEDS: OCTREOTIDE ACETATE 50 MCG/ML 1ML SUBCUT SCH ×3 (05:46→22:05)
[2018-04-20] MEDS: HYDRALAZINE HCL 50MG TABLET PO SCH ×3 (05:46→22:06)
[2018-04-20] MEDS: BLOOD SUGAR DIAGNOSTIC STRIP TEST SCH ×4 (05:56→18:08)
[2018-04-20] MEDS: INSULIN LISPRO 100 UNITS/ML SUBCUT SCH ×4 (05:56→18:00)
[2018-04-20 08:00] VITALS: BP 119/69
[2018-04-20] MEDS: AMLODIPINE 10MG TABLET PO SCH (08:45)
[2018-04-20 10:57] LABS: CHLORIDE 107 mEq/L (98-107)
[2018-04-20 11:10] LABS: PHOSPHORUS 4.1 mg/dL (2.5-4.9)
[2018-04-20 12:00] VITALS: BP 116/69
[2018-04-20 16:00] VITALS: BP 139/76
[2018-04-20 20:00] VITALS: BP 129/73
[2018-04-20] MEDS ORDERED: TOTAL PARENTERAL NUTRITION 1,900 ML IV SCH (21:00)
[2018-04-20] MEDS: FAT EMULSIONS 500 ML IV SCH (21:53)
[2018-04-21] VITALS: BP 128/73
[2018-04-21] MEDS: BLOOD SUGAR DIAGNOSTIC STRIP TEST SCH ×5 (00:08→23:37)
[2018-04-21] MEDS: MORPHINE SULFATE 4 MG/ML CPJ (NOT FOR IM USE) IV PRN ×5 (00:18→23:34)
[2018-04-21 04:00] VITALS: BP 131/62
[2018-04-21] MEDS: HYDRALAZINE HCL 50MG TABLET PO SCH ×3 (05:28→21:34)
[2018-04-21] MEDS: HYDROCODONE/ACETAMINOPHEN 10/325MG TABLET PO PRN ×3 (05:28→18:17)
[2018-04-21] MEDS: OCTREOTIDE ACETATE 50 MCG/ML 1ML SUBCUT SCH ×3 (05:29→21:33)
[2018-04-21] MEDS: INSULIN LISPRO 100 UNITS/ML SUBCUT SCH ×5 (05:36→23:37)
[2018-04-21 08:00] VITALS: BP 113/56
[2018-04-21] MEDS: CLONIDINE HCL 0.2MG/24HR PATCH TD SCH (08:50)
[2018-04-21] MEDS: AMLODIPINE 10MG TABLET PO SCH (09:00)
[2018-04-21 10:34] LABS: CHLORIDE 106 mEq/L (98-107)
[2018-04-21 12:00] VITALS: BP 112/59
[2018-04-21 16:00] VITALS: BP 119/67
[2018-04-21 20:00] VITALS: BP 124/78
[2018-04-21] MEDS ORDERED: TOTAL PARENTERAL NUTRITION 1,900 ML IV SCH (21:00)
[2018-04-22 00:09] VITALS: BP 131/79
[2018-04-22] MEDS: HYDROCODONE/ACETAMINOPHEN 10/325MG TABLET PO PRN ×3 (02:16→20:08)
[2018-04-22 04:00] VITALS: BP 129/77
[2018-04-22] MEDS: HYDRALAZINE HCL 50MG TABLET PO SCH ×3 (05:45→21:58)
[2018-04-22] MEDS: OCTREOTIDE ACETATE 50 MCG/ML 1ML SUBCUT SCH ×3 (05:45→21:58)
[2018-04-22] MEDS: MORPHINE SULFATE 4 MG/ML CPJ (NOT FOR IM USE) IV PRN ×4 (05:45→22:00)
[2018-04-22] MEDS: INSULIN LISPRO 100 UNITS/ML SUBCUT SCH ×3 (06:00→18:00)
[2018-04-22] MEDS: BLOOD SUGAR DIAGNOSTIC STRIP TEST SCH ×3 (06:21→18:43)
[2018-04-22 08:00] VITALS: BP_SYST 111; BP_SYST 132; BP_DIAS 69; BP_DIAS 73
[2018-04-22] MEDS: AMLODIPINE 10MG TABLET PO SCH (08:37)
[2018-04-22 08:42] LABS: CHLORIDE 108 mEq/L (98-107)
[2018-04-22 10:44] LABS: BASOPHILS % 0.5 % (0.0-2.0); EOSINOPHILS % 1.9 % (0.0-5.0); HEMATOCRIT. 28.8 % (36.0-48.0); HEMOGLOBIN. 9.6 g/dL (12.0-16.0); LYMPHOCYTES % 25.3 % (20.0-50.0); MEAN CORPUSCULAR HEMOGLOBIN 30.1 pg (28.0-32.0); MEAN CORPUSCULAR VOLUME 90.5 fL (81.0-99.0); MEAN PLATELET VOLUME 8.8 fl (7.4-10.4); MONOCYTES % 12.3 % (2.0-8.0); PLATELET 534 x1000/uL (130-400); RED BLOOD CELL COUNT 3.19 mill/uL (4.2-5.4); RED CELL DISTRIBUTION WIDTH 14.8 % (11.6-14.6)
[2018-04-22 12:00] VITALS: BP 132/73
[2018-04-22 16:00] VITALS: BP 130/80
[2018-04-22 20:00] VITALS: BP 138/89
[2018-04-22] MEDS: FAT EMULSIONS 500 ML IV SCH (20:26)
[2018-04-22] MEDS ORDERED: TOTAL PARENTERAL NUTRITION 1,900 ML IV SCH (21:00)
[2018-04-23] VITALS: BP 111/75
[2018-04-23] MEDS: MORPHINE SULFATE 4 MG/ML CPJ (NOT FOR IM USE) IV PRN ×3 (02:27→20:22)
[2018-04-23 04:00] VITALS: BP 122/69
[2018-04-23] MEDS: HYDROCODONE/ACETAMINOPHEN 10/325MG TABLET PO PRN ×2 (04:59→13:35)
[2018-04-23] MEDS: HYDRALAZINE HCL 50MG TABLET PO SCH ×3 (05:15→22:39)
[2018-04-23] MEDS: BLOOD SUGAR DIAGNOSTIC STRIP TEST SCH ×4 (05:15→18:00)
[2018-04-23] MEDS: OCTREOTIDE ACETATE 50 MCG/ML 1ML SUBCUT SCH ×3 (05:15→22:39)
[2018-04-23] MEDS: INSULIN LISPRO 100 UNITS/ML SUBCUT SCH ×4 (05:22→18:00)
[2018-04-23 08:00] VITALS: BP 110/68
[2018-04-23] MEDS: AMLODIPINE 10MG TABLET PO SCH (09:19)
[2018-04-23 12:00] VITALS: BP 124/77
[2018-04-23 16:00] VITALS: BP 131/77
[2018-04-23 20:00] VITALS: BP 131/80
[2018-04-23] MEDS ORDERED: TOTAL PARENTERAL NUTRITION 1,900 ML IV SCH (21:00)
[2018-04-24] MEDS: BLOOD SUGAR DIAGNOSTIC STRIP TEST SCH ×3 (05:33→18:42)
[2018-04-24] MEDS: INSULIN LISPRO 100 UNITS/ML SUBCUT SCH ×3 (05:34→18:00)
[2018-04-24] MEDS: OCTREOTIDE ACETATE 50 MCG/ML 1ML SUBCUT SCH ×2 (05:36→14:36)
[2018-04-24] MEDS: HYDRALAZINE HCL 50MG TABLET PO SCH ×3 (05:37→21:20)
[2018-04-24] MEDS: MORPHINE SULFATE 4 MG/ML CPJ (NOT FOR IM USE) IV PRN ×3 (05:38→21:21)
[2018-04-24 08:00] VITALS: BP 130/73
[2018-04-24] MEDS: AMLODIPINE 10MG TABLET PO SCH (08:35)
[2018-04-24] MEDS: HYDROCODONE/ACETAMINOPHEN 10/325MG TABLET PO PRN ×2 (09:28→16:02)
[2018-04-24 10:03] LABS: BASOPHILS % 0.4 % (0.0-2.0); EOSINOPHILS % 0.3 % (0.0-5.0); HEMATOCRIT. 28.2 % (36.0-48.0); HEMOGLOBIN. 9.5 g/dL (12.0-16.0); LYMPHOCYTES % 14.7 % (20.0-50.0); MEAN CORPUSCULAR HEMOGLOBIN 30.1 pg (28.0-32.0); MEAN CORPUSCULAR VOLUME 89.5 fL (81.0-99.0); MONOCYTES % 8.7 % (2.0-8.0); NEUTROPHILS % 75.9 % (40.0-76.0); RED BLOOD CELL COUNT 3.15 mill/uL (4.2-5.4); RED CELL DISTRIBUTION WIDTH 14.5 % (11.6-14.6)
[2018-04-24 10:45] LABS: CHLORIDE 100 mEq/L (98-107)
[2018-04-24 12:00] VITALS: BP 113/68
[2018-04-24 13:26] LABS: PLATELET 517 x1000/uL (130-400)
[2018-04-24 13:28] LABS: PLATELET ESTIMATE INCREASED
[2018-04-24 16:00] VITALS: BP 102/67
[2018-04-24 20:00] VITALS: BP 122/72
[2018-04-24] MEDS: FAT EMULSIONS 500 ML IV SCH (20:04)
[2018-04-24] MEDS ORDERED: TOTAL PARENTERAL NUTRITION 1,900 ML IV SCH (21:00)
[2018-04-25] VITALS: BP 109/62
[2018-04-25] MEDS: OCTREOTIDE ACETATE 50 MCG/ML 1ML SUBCUT SCH ×4 (01:12→22:54)
[2018-04-25] MEDS: HYDROCODONE/ACETAMINOPHEN 10/325MG TABLET PO PRN ×4 (01:27→21:10)
[2018-04-25 04:00] VITALS: BP 116/61
[2018-04-25] MEDS: MORPHINE SULFATE 4 MG/ML CPJ (NOT FOR IM USE) IV PRN (04:09)
[2018-04-25] MEDS: INSULIN LISPRO 100 UNITS/ML SUBCUT SCH ×4 (06:00→17:17)
[2018-04-25 06:20] LABS: BASOPHILS % 0.5 % (0.0-2.0); EOSINOPHILS % 1.5 % (0.0-5.0); HEMATOCRIT. 26.2 % (36.0-48.0); HEMOGLOBIN. 8.6 g/dL (12.0-16.0); LYMPHOCYTES % 20.6 % (20.0-50.0); MEAN CORPUSCULAR HEMOGLOBIN 29.4 pg (28.0-32.0); MEAN PLATELET VOLUME 9.1 fl (7.4-10.4); MONOCYTES % 10.1 % (2.0-8.0); NEUTROPHILS % 67.3 % (40.0-76.0); PLATELET 497 x1000/uL (130-400); RED BLOOD CELL COUNT 2.94 mill/uL (4.2-5.4); RED CELL DISTRIBUTION WIDTH 14.3 % (11.6-14.6)
[2018-04-25 06:29] LABS: CHLORIDE 100 mEq/L (98-107)
[2018-04-25] MEDS: HYDRALAZINE HCL 50MG TABLET PO SCH ×3 (06:42→21:09)
[2018-04-25] MEDS: BLOOD SUGAR DIAGNOSTIC STRIP TEST SCH ×4 (06:42→17:17)
[2018-04-25 08:00] VITALS: BP_SYST 135; BP_SYST 152; BP_DIAS 75
[2018-04-25] MEDS: AMLODIPINE 10MG TABLET PO SCH (08:50)
[2018-04-25 12:00] VITALS: BP 114/80
[2018-04-25 16:00] VITALS: BP 118/74
[2018-04-25 20:00] VITALS: BP 123/56
[2018-04-25] MEDS ORDERED: TOTAL PARENTERAL NUTRITION 1,900 ML IV SCH (21:00)
[2018-04-26] VITALS: BP 126/70
[2018-04-26] MEDS: BLOOD SUGAR DIAGNOSTIC STRIP TEST SCH ×4 (00:11→17:11)
[2018-04-26 04:00] VITALS: BP 127/76
[2018-04-26] MEDS: HYDROCODONE/ACETAMINOPHEN 10/325MG TABLET PO PRN ×3 (04:27→22:19)
[2018-04-26] MEDS: OCTREOTIDE ACETATE 50 MCG/ML 1ML SUBCUT SCH ×3 (05:12→22:14)
[2018-04-26] MEDS: HYDRALAZINE HCL 50MG TABLET PO SCH ×3 (05:12→22:00)
[2018-04-26 08:00] VITALS: BP 109/54
[2018-04-26] MEDS: AMLODIPINE 10MG TABLET PO SCH (08:47)
[2018-04-26] MEDS: MORPHINE SULFATE 4 MG/ML CPJ (NOT FOR IM USE) IV PRN (09:30)
[2018-04-26 12:00] VITALS: BP 106/60
[2018-04-26] MEDS: INSULIN LISPRO 100 UNITS/ML SUBCUT SCH ×3 (12:00→17:11)
[2018-04-26 16:00] VITALS: BP 109/64
[2018-04-26 20:00] VITALS: BP 105/61
[2018-04-26] MEDS ORDERED: TOTAL PARENTERAL NUTRITION 1,900 ML IV SCH (21:00)
[2018-04-27] VITALS: BP 136/76
[2018-04-27] MEDS: MORPHINE SULFATE 4 MG/ML CPJ (NOT FOR IM USE) IV PRN ×5 (00:31→20:24)
[2018-04-27] MEDS: BLOOD SUGAR DIAGNOSTIC STRIP TEST SCH ×5 (00:39→23:35)
[2018-04-27] MEDS: HYDROCODONE/ACETAMINOPHEN 10/325MG TABLET PO PRN ×4 (02:59→22:38)
[2018-04-27 04:00] VITALS: BP 135/74
[2018-04-27] MEDS: OCTREOTIDE ACETATE 50 MCG/ML 1ML SUBCUT SCH ×3 (05:33→22:09)
[2018-04-27] MEDS: HYDRALAZINE HCL 50MG TABLET PO SCH ×3 (05:34→22:08)
[2018-04-27] MEDS: INSULIN LISPRO 100 UNITS/ML SUBCUT SCH ×5 (06:00→23:39)
[2018-04-27 06:18] LABS: BASOPHILS % 0.3 % (0.0-2.0); EOSINOPHILS % 0.7 % (0.0-5.0); HEMOGLOBIN. 8.8 g/dL (12.0-16.0); LYMPHOCYTES % 15.3 % (20.0-50.0); MEAN CORPUSCULAR HEMOGLOBIN 30.1 pg (28.0-32.0); MEAN CORPUSCULAR VOLUME 89.6 fL (81.0-99.0); MONOCYTES % 8.7 % (2.0-8.0); PLATELET 499 x1000/uL (130-400); RED BLOOD CELL COUNT 2.91 mill/uL (4.2-5.4); RED CELL DISTRIBUTION WIDTH 14.7 % (11.6-14.6)
[2018-04-27 07:33] LABS: CHLORIDE 98 mEq/L (98-107)
[2018-04-27 08:00] VITALS: BP 141/78
[2018-04-27] MEDS: AMLODIPINE 10MG TABLET PO SCH (08:41)
[2018-04-27] MEDS: PANTOPRAZOLE SODIUM 40 MG/VIAL IV SCH (11:45)
[2018-04-27 12:00] VITALS: BP 128/59
[2018-04-27] MEDS: LEVOFLOXACIN 500MG PREMIX 100 ML IV SCH (12:00)
[2018-04-27] MEDS ORDERED: SODIUM BICARBONATE 4% (2.4MEQ) 5ML VIAL IV ONE (14:21)
[2018-04-27] MEDS ORDERED: LIDOCAINE HCL 1% 20ML VIAL (Pyxis) INJ ONE (14:21)
[2018-04-27 16:00] VITALS: BP 125/71
[2018-04-27] MEDS: METRONIDAZOLE 500 MG PREMIX 100 ML IV SCH ×2 (16:23→22:08)
[2018-04-27 20:00] VITALS: BP 129/76
[2018-04-27] MEDS ORDERED: TOTAL PARENTERAL NUTRITION 1,900 ML IV SCH (21:00)
[2018-04-27] MEDS: ZOLPIDEM TARTRATE 5MG TABLET PO PRN (22:09)
[2018-04-27] MEDS: ONDANSETRON HCL 4MG/2ML INJ IV PRN (22:09)
[2018-04-27] MEDS: FAT EMULSIONS 500 ML IV SCH (23:32)
[2018-04-28 04:00] VITALS: BP 116/72
[2018-04-28] MEDS: MORPHINE SULFATE 4 MG/ML CPJ (NOT FOR IM USE) IV PRN ×5 (04:24→22:59)
[2018-04-28] MEDS: OCTREOTIDE ACETATE 50 MCG/ML 1ML SUBCUT SCH ×3 (05:08→22:08)
[2018-04-28] MEDS: HYDRALAZINE HCL 50MG TABLET PO SCH ×3 (05:08→22:09)
[2018-04-28] MEDS: METRONIDAZOLE 500 MG PREMIX 100 ML IV SCH ×3 (05:09→22:08)
[2018-04-28] MEDS: BLOOD SUGAR DIAGNOSTIC STRIP TEST SCH ×3 (05:09→18:00)
[2018-04-28] MEDS ORDERED: HYDROCODONE/ACETAMINOPHEN 10/325MG TABLET PO PRN (06:00)
[2018-04-28 07:36] LABS: CHLORIDE 99 mEq/L (98-107)
[2018-04-28 07:54] LABS: BASOPHILS % 0.6 % (0.0-2.0); HEMATOCRIT. 22.8 % (36.0-48.0); LYMPHOCYTES % 11.8 % (20.0-50.0); MEAN CORPUSCULAR HEMOGLOBIN 31.4 pg (28.0-32.0); MEAN CORPUSCULAR VOLUME 89.5 fL (81.0-99.0); MEAN PLATELET VOLUME 9.3 fl (7.4-10.4); MONOCYTES % 7.6 % (2.0-8.0); PLATELET 466 x1000/uL (130-400); RED BLOOD CELL COUNT 2.55 mill/uL (4.2-5.4); RED CELL DISTRIBUTION WIDTH 14.6 % (11.6-14.6)
[2018-04-28 08:00] VITALS: BP_SYST 99; BP_DIAS 51; BP_DIAS 57
[2018-04-28] MEDS: PANTOPRAZOLE SODIUM 40 MG/VIAL IV SCH (08:23)
[2018-04-28] MEDS: CLONIDINE HCL 0.2MG/24HR PATCH TD SCH (08:27)
[2018-04-28] MEDS: AMLODIPINE 10MG TABLET PO SCH (09:00)
[2018-04-28 12:00] VITALS: BP 122/69
[2018-04-28] MEDS: INSULIN LISPRO 100 UNITS/ML SUBCUT SCH ×2 (12:00→18:00)
[2018-04-28] MEDS: ACETAMINOPHEN 325MG TABLET PO PRN (13:33)
[2018-04-28] MEDS: LEVOFLOXACIN 500MG PREMIX 100 ML IV SCH ×2 (13:44→13:58)
[2018-04-28 16:00] VITALS: BP 100/61
[2018-04-28 20:00] VITALS: BP 101/53
[2018-04-28] MEDS: HYDROCODONE/ACETAMINOPHEN 10/325MG TABLET PO PRN (20:58)
[2018-04-28] MEDS ORDERED: TOTAL PARENTERAL NUTRITION 1,900 ML IV SCH (21:00)
[2018-04-29] VITALS: BP 106/48
[2018-04-29] MEDS: ACETAMINOPHEN 325MG TABLET PO PRN (00:24)
[2018-04-29] MEDS: INSULIN LISPRO 100 UNITS/ML SUBCUT SCH ×5 (01:50→23:37)
[2018-04-29 04:00] VITALS: BP 97/64
[2018-04-29] MEDS: MORPHINE SULFATE 4 MG/ML CPJ (NOT FOR IM USE) IV PRN ×4 (04:30→23:15)
[2018-04-29] MEDS: METRONIDAZOLE 500 MG PREMIX 100 ML IV SCH ×3 (05:32→23:15)
[2018-04-29] MEDS: BLOOD SUGAR DIAGNOSTIC STRIP TEST SCH ×5 (05:33→23:36)
[2018-04-29] MEDS: HYDRALAZINE HCL 50MG TABLET PO SCH ×3 (05:33→22:00)
[2018-04-29] MEDS: OCTREOTIDE ACETATE 50 MCG/ML 1ML SUBCUT SCH ×3 (05:33→23:15)
[2018-04-29 08:00] VITALS: BP 104/61
[2018-04-29] MEDS: AMLODIPINE 10MG TABLET PO SCH (08:53)
[2018-04-29] MEDS: PANTOPRAZOLE SODIUM 40 MG/VIAL IV SCH (08:54)
[2018-04-29 12:00] VITALS: BP 116/77
[2018-04-29] MEDS: HYDROCODONE/ACETAMINOPHEN 10/325MG TABLET PO PRN ×2 (15:04→20:05)
[2018-04-29 16:00] VITALS: BP 96/53
[2018-04-29 20:00] VITALS: BP 98/60
[2018-04-29] MEDS: FAT EMULSIONS 500 ML IV SCH (20:50)
[2018-04-29] MEDS ORDERED: TOTAL PARENTERAL NUTRITION 1,900 ML IV SCH (21:00)
[2018-04-29] MEDS: ZOLPIDEM TARTRATE 5MG TABLET PO PRN (21:10)
[2018-04-30] VITALS: BP 101/57
[2018-04-30] MEDS: MORPHINE SULFATE 4 MG/ML CPJ (NOT FOR IM USE) IV PRN ×4 (03:33→23:52)
[2018-04-30 04:00] VITALS: BP 117/68
[2018-04-30] MEDS: HYDRALAZINE HCL 50MG TABLET PO SCH ×3 (05:28→21:50)
[2018-04-30] MEDS: METRONIDAZOLE 500 MG PREMIX 100 ML IV SCH ×3 (05:35→21:43)
[2018-04-30] MEDS: OCTREOTIDE ACETATE 50 MCG/ML 1ML SUBCUT SCH ×3 (05:35→21:44)
[2018-04-30] MEDS: INSULIN LISPRO 100 UNITS/ML SUBCUT SCH ×4 (06:00→23:52)
[2018-04-30] MEDS: BLOOD SUGAR DIAGNOSTIC STRIP TEST SCH ×4 (06:46→23:52)
[2018-04-30] MEDS: HYDROCODONE/ACETAMINOPHEN 10/325MG TABLET PO PRN ×3 (06:50→21:50)
[2018-04-30 08:00] VITALS: BP 113/72
[2018-04-30] MEDS: AMLODIPINE 10MG TABLET PO SCH (09:00)
[2018-04-30] MEDS: PANTOPRAZOLE SODIUM 40 MG/VIAL IV SCH (09:30)
[2018-04-30 12:00] VITALS: BP 112/67
[2018-04-30] MEDS: LEVOFLOXACIN 500MG PREMIX 100 ML IV SCH (12:55)
[2018-04-30 16:00] VITALS: BP 100/60
[2018-04-30 20:00] VITALS: BP 105/60
[2018-04-30] MEDS: ZOLPIDEM TARTRATE 5MG TABLET PO PRN (20:32)
[2018-04-30] MEDS ORDERED: TOTAL PARENTERAL NUTRITION 1,900 ML IV SCH (21:00)
[2018-04-30] MEDS: ONDANSETRON HCL 4MG/2ML INJ IV PRN (23:51)
[2018-05-01] VITALS (7 sets, daily range): BP systolic 99–126; BP diastolic 52–72
[2018-05-01] MEDS: MORPHINE SULFATE 4 MG/ML CPJ (NOT FOR IM USE) IV PRN (04:34)
[2018-05-01] MEDS: OCTREOTIDE ACETATE 50 MCG/ML 1ML SUBCUT SCH ×3 (05:59→22:51)
[2018-05-01] MEDS: METRONIDAZOLE 500 MG PREMIX 100 ML IV SCH ×3 (05:59→22:53)
[2018-05-01] MEDS: INSULIN LISPRO 100 UNITS/ML SUBCUT SCH ×4 (06:00→23:06)
[2018-05-01] MEDS: HYDRALAZINE HCL 50MG TABLET PO SCH ×3 (06:06→20:26)
[2018-05-01] MEDS: BLOOD SUGAR DIAGNOSTIC STRIP TEST SCH ×4 (06:51→23:06)
[2018-05-01] MEDS: PANTOPRAZOLE SODIUM 40 MG/VIAL IV SCH (08:57)
[2018-05-01] MEDS: AMLODIPINE 10MG TABLET PO SCH (08:58)
[2018-05-01] MEDS: LEVOFLOXACIN 500MG PREMIX 100 ML IV SCH (10:46)
[2018-05-01] MEDS: HYDROCODONE/ACETAMINOPHEN 10/325MG TABLET PO PRN ×3 (10:48→20:29)
[2018-05-01 17:47] LABS: CHLORIDE 107 mEq/L (98-107)
[2018-05-01 17:54] LABS: PHOSPHORUS 3.3 mg/dL (2.5-4.9)
[2018-05-01] MEDS: FAT EMULSIONS 500 ML IV SCH (20:27)
[2018-05-01] MEDS ORDERED: TOTAL PARENTERAL NUTRITION 1,900 ML IV SCH (21:00)
[2018-05-01] MEDS: ZOLPIDEM TARTRATE 5MG TABLET PO PRN (23:18)
[2018-05-02] MEDS: HYDROCODONE/ACETAMINOPHEN 10/325MG TABLET PO PRN ×4 (01:29→21:59)
[2018-05-02] MEDS ORDERED: MORPHINE SULFATE 4 MG/ML CPJ (NOT FOR IM USE) IV PRN (01:45)
[2018-05-02 04:00] VITALS: BP 111/63
[2018-05-02] MEDS: INSULIN LISPRO 100 UNITS/ML SUBCUT SCH ×3 (06:00→18:00)
[2018-05-02] MEDS: HYDRALAZINE HCL 50MG TABLET PO SCH ×3 (06:00→22:00)
[2018-05-02] MEDS: BLOOD SUGAR DIAGNOSTIC STRIP TEST SCH ×3 (06:25→18:22)
[2018-05-02] MEDS: METRONIDAZOLE 500 MG PREMIX 100 ML IV SCH ×3 (06:51→23:28)
[2018-05-02] MEDS: OCTREOTIDE ACETATE 50 MCG/ML 1ML SUBCUT SCH ×3 (06:51→21:57)
[2018-05-02 08:00] VITALS: BP 96/51
[2018-05-02] MEDS: AMLODIPINE 10MG TABLET PO SCH (08:47)
[2018-05-02] MEDS: PANTOPRAZOLE SODIUM 40 MG/VIAL IV SCH (09:59)
[2018-05-02 10:06] LABS: MEAN CORPUSCULAR VOLUME 90.1 fL (81.0-99.0); PLATELET 398 x1000/uL (130-400); RED BLOOD CELL COUNT 2.15 mill/uL (4.2-5.4); RED CELL DISTRIBUTION WIDTH 14.2 % (11.6-14.6)
[2018-05-02 10:09] LABS: HEMATOCRIT 19.4 % (36.0-48.0)
[2018-05-02 10:10] LABS: HEMOGLOBIN 7.1 g/dL (12.0-16.0)
[2018-05-02] MEDS: LEVOFLOXACIN 500MG PREMIX 100 ML IV SCH ×2 (11:02→22:00)
[2018-05-02 12:00] VITALS: BP 118/68
[2018-05-02 16:00] VITALS: BP 96/53
[2018-05-02 20:00] VITALS: BP 109/68
[2018-05-02] MEDS ORDERED: TOTAL PARENTERAL NUTRITION 1,900 ML IV SCH (21:00)
[2018-05-03] VITALS (9 sets, daily range): BP systolic 95–115; BP diastolic 52–69
[2018-05-03] MEDS: HYDROCODONE/ACETAMINOPHEN 10/325MG TABLET PO PRN ×4 (03:14→20:30)
[2018-05-03] MEDS: INSULIN LISPRO 100 UNITS/ML SUBCUT SCH ×4 (06:00→17:59)
[2018-05-03] MEDS: HYDRALAZINE HCL 50MG TABLET PO SCH ×3 (06:00→21:49)
[2018-05-03] MEDS: BLOOD SUGAR DIAGNOSTIC STRIP TEST SCH ×4 (06:04→17:58)
[2018-05-03] MEDS: METRONIDAZOLE 500 MG PREMIX 100 ML IV SCH ×2 (06:04→15:03)
[2018-05-03] MEDS: OCTREOTIDE ACETATE 50 MCG/ML 1ML SUBCUT SCH ×2 (06:06→15:04)
[2018-05-03] MEDS: AMLODIPINE 10MG TABLET PO SCH (09:00)
[2018-05-03] MEDS: PANTOPRAZOLE SODIUM 40 MG/VIAL IV SCH (10:43)
[2018-05-03 12:04] LABS: HEMATOCRIT 24.5 % (36.0-48.0); HEMOGLOBIN 8.2 g/dL (12.0-16.0)
[2018-05-03] MEDS: ACETAMINOPHEN 325MG TABLET PO PRN (18:14)
[2018-05-03] MEDS ORDERED: TOTAL PARENTERAL NUTRITION 1,900 ML IV SCH (21:00)
[2018-05-04] VITALS: BP 113/67
[2018-05-04] MEDS: HYDROCODONE/ACETAMINOPHEN 10/325MG TABLET PO PRN ×3 (00:55→09:18)
[2018-05-04] MEDS: METRONIDAZOLE 500 MG PREMIX 100 ML IV SCH ×2 (00:56→05:09)
[2018-05-04] MEDS: BLOOD SUGAR DIAGNOSTIC STRIP TEST SCH ×3 (00:56→11:51)
[2018-05-04 04:00] VITALS: BP 112/66
[2018-05-04] MEDS: HYDRALAZINE HCL 50MG TABLET PO SCH ×2 (05:13→13:18)
[2018-05-04] MEDS: INSULIN LISPRO 100 UNITS/ML SUBCUT SCH ×3 (05:17→11:51)
[2018-05-04 07:18] LABS: CHLORIDE 110 mEq/L (98-107)
[2018-05-04 07:24] LABS: PHOSPHORUS 2.9 mg/dL (2.5-4.9)
[2018-05-04 08:00] VITALS: BP 123/65
[2018-05-04] MEDS: PANTOPRAZOLE SODIUM 40 MG/VIAL IV SCH (08:34)
[2018-05-04] MEDS: AMLODIPINE 10MG TABLET PO SCH (08:34)
[2018-05-04] MEDS: LEVOFLOXACIN 500MG PREMIX 100 ML IV SCH (10:49)
[2018-05-04 12:00] VITALS: BP 106/66
[2018-05-04] MEDS ORDERED: FAT EMULSIONS 500 ML IV SCH (21:00)
[2018-05-04] MEDS ORDERED: TOTAL PARENTERAL NUTRITION 1,900 ML IV SCH (21:00)
== END 2018-05-04 14:26 | disposition left against medical advice (07) | DRG 862 ==
LOC: EDBD → ER 03:53 → EDBEDREQ 06:28 → ENRESERV 08:21 → CANRESERV 08:21 → EDBEDREQSVC 09:35 → EDBEDREQTM 09:35 → 5EST 09:59 → EDBEDREQ 10:05 → EDBEDREQTM 10:05 → ENRESERV 14:31 → 5EST 04-02 13:07 → 6EST 04-14 16:10
PROVIDERS: ADMIT Internal Medicine; ATTEND Internal Medicine
PROC: B5181ZA Fluoroscopy of Superior Vena Cava using Low Osmolar Contrast, Guidance (ICD-10-PCS; 2018-03-27)
PROC: 02HV33Z Insertion of Infusion Device into Superior Vena Cava, Percutaneous Approach (ICD-10-PCS; 2018-03-27)
PROC: B548ZZA Ultrasonography of Superior Vena Cava, Guidance (ICD-10-PCS; 2018-03-27)
PROC: B51M1ZA Fluoroscopy of Right Upper Extremity Veins using Low Osmolar Contrast, Guidance (ICD-10-PCS; 2018-03-27)
PROC: 30233N1 Transfusion of Nonautologous Red Blood Cells into Peripheral Vein, Percutaneous Approach (ICD-10-PCS; 2018-03-27)
PROC: 02HV33Z Insertion of Infusion Device into Superior Vena Cava, Percutaneous Approach (ICD-10-PCS; principal; 2018-04-02)
PROC: B548ZZA Ultrasonography of Superior Vena Cava, Guidance (ICD-10-PCS; 2018-04-02)
PROC: 5A1D70Z Performance of Urinary Filtration, Intermittent, Less than 6 Hours Per Day (ICD-10-PCS; 2018-04-02)
DX: T81.41XA Infection following a procedure, superficial incisional surgical site, initial encounter (principal); A41.9 Sepsis, unspecified organism; N17.0 Acute kidney failure with tubular necrosis; I50.33 Acute on chronic diastolic (congestive) heart failure; E43 Unspecified severe protein-calorie malnutrition; R64 Cachexia; N13.6 Pyonephrosis; K31.6 Fistula of stomach and duodenum; I13.0 Hypertensive heart and chronic kidney disease with heart failure and stage 1 through stage 4 chronic kidney disease, or unspecified chronic kidney disease; D64.9 Anemia, unspecified; R62.7 Adult failure to thrive; Z53.21 Procedure and treatment not carried out due to patient leaving prior to being seen by health care provider; F11.10 Opioid abuse, uncomplicated; K21.9 Gastro-esophageal reflux disease without esophagitis; B19.20 Unspecified viral hepatitis C without hepatic coma; B96.89 Other specified bacterial agents as the cause of diseases classified elsewhere; E11.22 Type 2 diabetes mellitus with diabetic chronic kidney disease; E86.9 Volume depletion, unspecified; F10.10 Alcohol abuse, uncomplicated; F17.200 Nicotine dependence, unspecified, uncomplicated; J44.9 Chronic obstructive pulmonary disease, unspecified; N18.9 Chronic kidney disease, unspecified; Y83.8 Other surgical procedures as the cause of abnormal reaction of the patient, or of later complication, without mention of misadventure at the time of the procedure; Y92.89 Other specified places as the place of occurrence of the external cause; Z87.11 Personal history of peptic ulcer disease; Z79.1 Long term (current) use of non-steroidal anti-inflammatories (NSAID); Z79.899 Other long term (current) drug therapy; Z68.20 Body mass index [BMI] 20.0-20.9, adult
CPT/HCPCS: 36415; 36556; 36569; 36600; 71045; 74018; 74177; 74250; 74270; 75820; 76700; 76770; 76937; 77001; 80048; 80061; 80202; 82375; 82550; 82553; 82805; 82941; 82962; 83036; 83605; 83735; 83880; 84100; 84132; 84134; 84145; 84439; 84443; 84478; 84484; 85014; 85018; 85027; 85379; 86038; 86160; 86705; 86709; 86803; 86850; 86900; 86920; 87077; 87186; 87340; 90686; 90732; 93005; 93306; 93970; 96361; 96365; 96367; 96375; 97116; 97163; 97166; 97530; 97535; 99291; A6261; C1725; C1752; C1769; C9113; J1815; J1940; J1956; J2060; J2185; J2270; J2354; J2405; J2543; J3370; J3475; J3480; J3490; J7030; J7040; J7050; J7060; J7070; P9016; Q9963; Q9967; A4315

== ENCOUNTER 2018-05-08 02:51 | Inpatient (IN) | payer MEDICARE, MEDICAID ==
[~2018-05-08] VITALS: Ht 152.4 cm; Wt 40.4 kg
[2018-05-08] MEDS ORDERED: ONDANSETRON HCL 4MG/2ML INJ IV STA (03:56)
[2018-05-08] MEDS ORDERED: FENTANYL CITRATE/PF 50MCG/ML 2ML VIAL IV ONE ×2 (04:00→09:00)
[2018-05-08 04:21] LABS: CHLORIDE 102 mEq/L (98-107); INR 1.1; PROTHROMBIN TIME 10.9 sec (9.1-11.1)
[2018-05-08 04:26] LABS: BASOPHILS % 0.1 % (0.0-2.0); HEMATOCRIT. 24.6 % (36.0-48.0); HEMOGLOBIN. 8.2 g/dL (12.0-16.0); LYMPHOCYTES % 5.9 % (20.0-50.0); MEAN CORPUSCULAR HEMOGLOBIN 29.7 pg (28.0-32.0); MEAN CORPUSCULAR VOLUME 89.2 fL (81.0-99.0); MEAN PLATELET VOLUME 8.9 fl (7.4-10.4); MONOCYTES % 4.9 % (2.0-8.0); NEUTROPHILS % 89.1 % (40.0-76.0); PLATELET 463 x1000/uL (130-400); RED BLOOD CELL COUNT 2.76 mill/uL (4.2-5.4); RED CELL DISTRIBUTION WIDTH 14.4 % (11.6-14.6)
[2018-05-08] MEDS ORDERED: SODIUM CHLORIDE 0.9% 1,000 ML IV ONE (05:30)
[2018-05-08 07:47] LABS: CLARITY URINE CLOUDY (CLEAR); COLOR URINE YELLOW (YELLOW); KETONES URINE NEGATIVE (NEGATIVE); LEUKOCYTE ESTERASE URINE 3+ (NEGATIVE); NITRITE URINE NEGATIVE (NEGATIVE); OCCULT BLOOD URINE TRACE (NEGATIVE); PROTEIN URINE 1+ (NEGATIVE); SPECIFIC GRAVITY URINE 1.022 (1.005-1.030); UROBILINOGEN URINE 0.2 E.U./dL (0.2-1.0)
[2018-05-08] MEDS ORDERED: PIPERACILLIN/TAZOBACTAM 3.375GM/50ML PREMIX IV ONE (08:15)
[2018-05-08] MEDS ORDERED: PIPERACILLIN/TAZ 3.375G PREMIX 50 ML IV ONE (08:30)
[2018-05-08 12:00] VITALS: BP 147/81
[2018-05-08 13:00] VITALS: BP 144/71
[2018-05-08] MEDS ORDERED: KETOROLAC 30MG/ML VIAL IV NR (15:20)
[2018-05-08] MEDS ORDERED: PIPERACILLIN/TAZ 3.375G PREMIX 50 ML IV SCH (15:30)
[2018-05-08] MEDS ORDERED: HYDROMORPHONE HCL/PF 2MG/ML CPJ IM PRN (15:30)
[2018-05-08] MEDS: PANTOPRAZOLE SODIUM 40 MG/VIAL IV SCH ×2 (15:45→20:10)
[2018-05-08 16:00] VITALS: BP 137/80
[2018-05-08] MEDS: HYDROMORPHONE HCL/PF 2MG/ML CPJ IV PRN (19:50)
[2018-05-08] MEDS: SODIUM CHLORIDE 0.9% 1,000 ML IV SCH (19:53)
[2018-05-08 20:00] VITALS: BP 148/86
[2018-05-08] MEDS: PIPERACILLIN/TAZ 2.25G PREMIX 50 ML IV SCH (20:10)
[2018-05-09] VITALS (11 sets, daily range): BP systolic 104–165; BP diastolic 64–72
[2018-05-09] MEDS: PIPERACILLIN/TAZ 2.25G PREMIX 50 ML IV SCH ×3 (00:01→21:17)
[2018-05-09] MEDS: HYDROMORPHONE HCL/PF 2MG/ML CPJ IV PRN ×5 (00:08→21:18)
[2018-05-09] MEDS: SODIUM CHLORIDE 0.9% 1,000 ML IV SCH (06:17)
[2018-05-09 07:15] LABS: BASOPHILS % 0.1 % (0.0-2.0); LYMPHOCYTES % 7.4 % (20.0-50.0); MEAN PLATELET VOLUME 8.5 fl (7.4-10.4); MONOCYTES % 5.1 % (2.0-8.0); NEUTROPHILS % 87.4 % (40.0-76.0); PLATELET 351 x1000/uL (130-400); RED BLOOD CELL COUNT 2.15 mill/uL (4.2-5.4); RED CELL DISTRIBUTION WIDTH 14.6 % (11.6-14.6)
[2018-05-09 07:26] LABS: CHLORIDE 110 mEq/L (98-107)
[2018-05-09 07:46] LABS: HEMATOCRIT. 19.1 % (36.0-48.0); HEMOGLOBIN. 6.4 g/dL (12.0-16.0)
[2018-05-09] MEDS: PANTOPRAZOLE SODIUM 40 MG/VIAL IV SCH ×2 (09:10→21:18)
[2018-05-09] MEDS ORDERED: POTASSIUM CHLORIDE INJ 40 MEQ in DEXT 5% WATER 500 ML IV NR (11:00)
[2018-05-09] MEDS ORDERED: DIPHENHYDRAMINE 50MG/ML VIAL IV NR (16:15)
[2018-05-09] MEDS ORDERED: ACETAMINOPHEN 650MG SUPP PR NR (16:15)
[2018-05-09 21:35] LABS: HEMOGLOBIN 7.9 g/dL (12.0-16.0)
[2018-05-10] VITALS: BP 129/74
[2018-05-10] MEDS: HYDROMORPHONE HCL/PF 2MG/ML CPJ IV PRN ×6 (01:46→23:00)
[2018-05-10] MEDS: PIPERACILLIN/TAZ 2.25G PREMIX 50 ML IV SCH ×4 (01:47→18:05)
[2018-05-10 04:00] VITALS: BP 127/77
[2018-05-10 07:39] LABS: BASOPHILS % 0.1 % (0.0-2.0); EOSINOPHILS % 0.2 % (0.0-5.0); HEMOGLOBIN. 8.5 g/dL (12.0-16.0); LYMPHOCYTES % 12.8 % (20.0-50.0); MEAN CORPUSCULAR HEMOGLOBIN 30.4 pg (28.0-32.0); MEAN PLATELET VOLUME 8.5 fl (7.4-10.4); MONOCYTES % 5.7 % (2.0-8.0); NEUTROPHILS % 81.2 % (40.0-76.0); PLATELET 358 x1000/uL (130-400); RED BLOOD CELL COUNT 2.78 mill/uL (4.2-5.4); RED CELL DISTRIBUTION WIDTH 14.9 % (11.6-14.6)
[2018-05-10 07:47] LABS: CHLORIDE 112 mEq/L (98-107)
[2018-05-10 08:00] VITALS: BP 123/69
[2018-05-10] MEDS ORDERED: DEXTROSE 50% WATER 50ML SYRINGE IV ONE ×2 (09:00)
[2018-05-10] MEDS: PANTOPRAZOLE SODIUM 40 MG/VIAL IV SCH ×2 (09:37→22:57)
[2018-05-10] MEDS ORDERED: POTASSIUM CHLORIDE INJ 40 MEQ in DEXT 5% WATER 500 ML IV SCH (11:15)
[2018-05-10 12:00] VITALS: BP_SYST 138; BP_SYST 144; BP_DIAS 85; BP_DIAS 91
[2018-05-10 16:00] VITALS: BP_SYST 135; BP_SYST 152; BP_DIAS 81; BP_DIAS 88
[2018-05-10 20:00] VITALS: BP 144/85
[2018-05-11] VITALS: BP 123/78
[2018-05-11] MEDS: PIPERACILLIN/TAZ 3.375G PREMIX 50 ML IV SCH ×4 (00:45→18:17)
[2018-05-11 04:00] VITALS: BP 149/83
[2018-05-11] MEDS: HYDROMORPHONE HCL/PF 2MG/ML CPJ IV PRN ×4 (04:11→17:14)
[2018-05-11 08:00] VITALS: BP 136/64
[2018-05-11] MEDS: PANTOPRAZOLE SODIUM 40 MG/VIAL IV SCH (08:25)
[2018-05-11 12:00] VITALS: BP 139/87
[2018-05-11 16:00] VITALS: BP 157/87
[2018-05-11 18:35] LABS: BASOPHILS % 0.2 % (0.0-2.0); EOSINOPHILS % 1.5 % (0.0-5.0); HEMATOCRIT. 29.3 % (36.0-48.0); HEMOGLOBIN. 9.7 g/dL (12.0-16.0); MEAN CORPUSCULAR HEMOGLOBIN 30.1 pg (28.0-32.0); MEAN CORPUSCULAR VOLUME 91.2 fL (81.0-99.0); MEAN PLATELET VOLUME 8.7 fl (7.4-10.4); MONOCYTES % 7.1 % (2.0-8.0); NEUTROPHILS % 56.2 % (40.0-76.0); PLATELET 416 x1000/uL (130-400); RED BLOOD CELL COUNT 3.21 mill/uL (4.2-5.4)
[2018-05-11 18:49] LABS: CHLORIDE 110 mEq/L (98-107)
[2018-05-11 20:23] VITALS: BP 20/139
[2018-05-11] MEDS ORDERED: LEVO500T89 PO (20:42)
== END 2018-05-11 20:55 | disposition home or self-care (01) | DRG 871 ==
LOC: ER 02:51 → EDBEDREQTM 08:50 → EDBEDREQ 08:50 → EDBEDREQSVC 10:00 → EDBEDREQTM 10:02 → ENRESERV 10:17 → EDBD 10:40 → 6EST 10:40 → EDBEDREQ 10:42
PROVIDERS: ADMIT Internal Medicine; ATTEND Internal Medicine
PROC: 30233N1 Transfusion of Nonautologous Red Blood Cells into Peripheral Vein, Percutaneous Approach (ICD-10-PCS; principal; 2018-05-09)
DX: A41.51 Sepsis due to Escherichia coli [E. coli] (principal); E43 Unspecified severe protein-calorie malnutrition; N39.0 Urinary tract infection, site not specified; K52.9 Noninfective gastroenteritis and colitis, unspecified; E11.9 Type 2 diabetes mellitus without complications; B19.20 Unspecified viral hepatitis C without hepatic coma; I50.9 Heart failure, unspecified; R33.9 Retention of urine, unspecified; G89.4 Chronic pain syndrome; D64.9 Anemia, unspecified; J44.9 Chronic obstructive pulmonary disease, unspecified; I11.0 Hypertensive heart disease with heart failure; Z93.4 Other artificial openings of gastrointestinal tract status; Z87.11 Personal history of peptic ulcer disease
CPT/HCPCS: 36415; 74018; 74176; 80048; 82962; 83605; 85014; 85018; 85049; 85384; 86850; 86900; 86920; 87077; 87186; 96365; 96375; 99285; C9113; J1170; J1200; J1885; J2405; J2543; J3010; J3480; J7030; J7040; J7060; P9016; A4315

== ENCOUNTER 2018-05-19 07:41 | Inpatient (IN) | payer MEDICARE, MEDICAID ==
[~2018-05-19] VITALS: Ht 152.4 cm; Wt 47.8 kg
[~2018-05-19 07:41] MED LIST changes: +LEVO500T89 PO
[2018-05-19] MEDS ORDERED: MORPHINE SULFATE 4 MG/ML CPJ (NOT FOR IM USE) IV STA (08:06)
[2018-05-19] MEDS ORDERED: PANTOPRAZOLE 80 MG in SODIUM CHLORIDE 0.9% 100 ML IV STA (08:06)
[2018-05-19] MEDS ORDERED: ONDANSETRON HCL 4MG/2ML INJ IV STA (08:06)
[2018-05-19] MEDS ORDERED: SODIUM CHLORIDE 0.9% 1,000 ML IV ONE (08:06)
[2018-05-19] MEDS ORDERED: PANTOPRAZOLE SODIUM 40 MG/VIAL IV STA (08:06)
[2018-05-19 08:56] LABS: MEAN CORPUSCULAR HEMOGLOBIN 29.9 pg (28.0-32.0); MEAN PLATELET VOLUME 9.2 fl (7.4-10.4); PLATELET 542 x1000/uL (130-400); RED BLOOD CELL COUNT 2.22 mill/uL (4.2-5.4); RED CELL DISTRIBUTION WIDTH 16.2 % (11.6-14.6)
[2018-05-19 08:58] LABS: CHLORIDE 96 mEq/L (98-107)
[2018-05-19 08:59] LABS: HEMATOCRIT. 20.2 % (36.0-48.0); HEMOGLOBIN. 6.6 g/dL (12.0-16.0)
[2018-05-19] MEDS ORDERED: MORPHINE SULFATE 2 MG/ML CPJ (NOT FOR IM USE) IV NR (09:00)
[2018-05-19 09:06] LABS: PARTIAL THROMBOPLASTIN TIME 32.2 sec (23.4-31.0); PROTHROMBIN TIME 10.4 sec (9.1-11.1)
[2018-05-19] MEDS ORDERED: KCL 20MEQ/100ML PREMIX 100 ML IV ONE (09:15)
[2018-05-19] MEDS ORDERED: PANTOPRAZOLE SODIUM 40 MG/VIAL IV ONE (09:22)
[2018-05-19] MEDS ORDERED: DIATR MEGLU/DIATRIZOATE SOLN 30ML PO ONE (09:45)
[2018-05-19 10:19] LABS: CLARITY URINE TURBID (CLEAR); COLOR URINE YELLOW (YELLOW); KETONES URINE TRACE (NEGATIVE); LEUKOCYTE ESTERASE URINE 2+ (NEGATIVE); NITRITE URINE NEGATIVE (NEGATIVE); OCCULT BLOOD URINE 1+ (NEGATIVE); PROTEIN URINE TRACE (NEGATIVE); SPECIFIC GRAVITY URINE 1.018 (1.005-1.030); UROBILINOGEN URINE 0.2 E.U./dL (0.2-1.0)
[2018-05-19] MEDS ORDERED: DIATR MEGLU/DIATRIZOATE SOLN 30ML ONE (10:25)
[2018-05-19] MEDS ORDERED: CEFTRIAXONE 1 G PREMIX 50 ML IV ONE (10:30)
[2018-05-19 10:34] LABS: PLATELET ESTIMATE INCREASED
[2018-05-19] MEDS ORDERED: ONDANSETRON HCL 4MG/2ML INJ IV PRN (11:15)
[2018-05-19] MEDS ORDERED: LEVOFLOXACIN 500MG PREMIX 100 ML IV NR (16:00)
[2018-05-19 19:47] LABS: *AMPHETAMINES SCREEN URINE NEGATIVE (NEGATIVE); *BARBITURATES SCREEN URINE NEGATIVE (NEGATIVE); *BENZODIAZEPINES SCREEN URINE NEGATIVE (NEGATIVE); *COCAINE SCREEN URINE NEGATIVE (NEGATIVE); METHADONE URINE SCREEN NEGATIVE (NEGATIVE); OPIATES URINE SCREEN PRESUMTIVE POSITIVE (NEGATIVE); PHENCYCLIDINE URINE SCREEN NEGATIVE (NEGATIVE)
[2018-05-19 19:48] LABS: CANNABINOID URINE SCREEN NEGATIVE (NEGATIVE)
[2018-05-19 20:20] VITALS: BP 120/70
[2018-05-19 21:00] VITALS: BP 111/56
[2018-05-19] MEDS: ONDANSETRON HCL 4MG/2ML INJ IV PRN (21:09)
[2018-05-19] MEDS: HYDROMORPHONE HCL/PF 2MG/ML CPJ IV PRN (21:10)
[2018-05-19] MEDS: DEXT 5%/0.45% NACL 1000ML 1,000 ML IV SCH (21:11)
[2018-05-19 22:00] VITALS: BP 114/64
[2018-05-19 23:00] LABS: HEMATOCRIT 21.4 % (36.0-48.0); HEMOGLOBIN 7.3 g/dL (12.0-16.0)
[2018-05-19] MEDS: PANTOPRAZOLE SODIUM 40 MG/VIAL IV SCH (23:35)
[2018-05-20] VITALS (33 sets, daily range): BP systolic 65–135; BP diastolic 33–76
[2018-05-20] MEDS: HYDROMORPHONE HCL/PF 2MG/ML CPJ IV PRN ×7 (02:39→21:55)
[2018-05-20] MEDS: ONDANSETRON HCL 4MG/2ML INJ IV PRN (03:00)
[2018-05-20] MEDS: DEXT 5%/0.45% NACL 1000ML 1,000 ML IV SCH ×3 (05:46→20:35)
[2018-05-20] MEDS: PANTOPRAZOLE SODIUM 40 MG/VIAL IV SCH ×2 (08:40→20:39)
[2018-05-20 08:42] LABS: BASOPHILS % 0.1 % (0.0-2.0); EOSINOPHILS % 0.1 % (0.0-5.0); LYMPHOCYTES % 8.3 % (20.0-50.0); MEAN CORPUSCULAR HEMOGLOBIN 30.8 pg (28.0-32.0); MEAN CORPUSCULAR VOLUME 88.2 fL (81.0-99.0); MEAN PLATELET VOLUME 8.4 fl (7.4-10.4); MONOCYTES % 11.9 % (2.0-8.0); NEUTROPHILS % 79.6 % (40.0-76.0); PLATELET 441 x1000/uL (130-400); RED CELL DISTRIBUTION WIDTH 14.7 % (11.6-14.6)
[2018-05-20 08:46] LABS: HEMOGLOBIN. 6.8 g/dL (12.0-16.0)
[2018-05-20 08:47] LABS: HEMATOCRIT. 19.4 % (36.0-48.0)
[2018-05-20 09:34] LABS: CHLORIDE 102 mEq/L (98-107)
[2018-05-20] MEDS ORDERED: POTASSIUM CHLORIDE INJ 40 MEQ in DEXT 5% WATER 250 ML IV ONE ×2 (12:00→16:00)
[2018-05-20] MEDS ORDERED: POTASSIUM CHLORIDE INJ 40 MEQ in DEXT 5% WATER 250 ML IV NR (16:00)
[2018-05-20] MEDS ORDERED: LEVOFLOXACIN 500MG PREMIX 100 ML IV SCH (17:00)
[2018-05-20 19:06] LABS: HEMATOCRIT 28.4 % (36.0-48.0); HEMOGLOBIN 9.8 g/dL (12.0-16.0)
[2018-05-21] VITALS (12 sets, daily range): BP systolic 103–137; BP diastolic 40–81
[2018-05-21] MEDS: HYDROMORPHONE HCL/PF 2MG/ML CPJ IV PRN ×8 (00:11→20:13)
[2018-05-21] MEDS: DEXT 5%/0.45% NACL 1000ML 1,000 ML IV SCH ×3 (04:47→20:28)
[2018-05-21 05:48] LABS: CHLORIDE 108 mEq/L (98-107)
[2018-05-21 06:14] LABS: BASOPHILS % 0.1 % (0.0-2.0); EOSINOPHILS % 0.1 % (0.0-5.0); HEMATOCRIT. 27.1 % (36.0-48.0); HEMOGLOBIN. 9.2 g/dL (12.0-16.0); LYMPHOCYTES % 14.1 % (20.0-50.0); MEAN CORPUSCULAR HEMOGLOBIN 30.1 pg (28.0-32.0); MEAN CORPUSCULAR VOLUME 88.8 fL (81.0-99.0); MEAN PLATELET VOLUME 8.2 fl (7.4-10.4); MONOCYTES % 10.1 % (2.0-8.0); NEUTROPHILS % 75.6 % (40.0-76.0); PLATELET 357 x1000/uL (130-400); RED BLOOD CELL COUNT 3.05 mill/uL (4.2-5.4); RED CELL DISTRIBUTION WIDTH 14.4 % (11.6-14.6)
[2018-05-21] MEDS: PANTOPRAZOLE SODIUM 40 MG/VIAL IV SCH ×2 (09:14→20:15)
[2018-05-21] MEDS: MEROPENEM 1,000 MG in SODIUM CHLORIDE 0.9% 100 ML IV SCH ×2 (16:41→20:16)
[2018-05-21] MEDS: ZOLPIDEM TARTRATE 5MG TABLET PO PRN (20:15)
[2018-05-21] MEDS: HYDROCODONE/ACETAMINOPHEN 5/325MG TABLET PO PRN (23:25)
[2018-05-22] VITALS (11 sets, daily range): BP systolic 96–158; BP diastolic 30–95
[2018-05-22] MEDS: HYDROMORPHONE HCL/PF 2MG/ML CPJ IV PRN ×5 (04:32→20:47)
[2018-05-22] MEDS: MEROPENEM 1,000 MG in SODIUM CHLORIDE 0.9% 100 ML IV SCH ×3 (04:32→20:55)
[2018-05-22] MEDS: DEXT 5%/0.45% NACL 1000ML 1,000 ML IV SCH ×3 (04:33→20:54)
[2018-05-22 07:36] LABS: BASOPHILS % 0.2 % (0.0-2.0); EOSINOPHILS % 0.2 % (0.0-5.0); HEMATOCRIT. 26.4 % (36.0-48.0); LYMPHOCYTES % 17.4 % (20.0-50.0); MEAN CORPUSCULAR HEMOGLOBIN 30.7 pg (28.0-32.0); MEAN CORPUSCULAR VOLUME 89.6 fL (81.0-99.0); MEAN PLATELET VOLUME 8.5 fl (7.4-10.4); MONOCYTES % 7.2 % (2.0-8.0); PLATELET 321 x1000/uL (130-400); RED BLOOD CELL COUNT 2.95 mill/uL (4.2-5.4)
[2018-05-22 07:54] LABS: CHLORIDE 109 mEq/L (98-107)
[2018-05-22] MEDS: PANTOPRAZOLE SODIUM 40 MG/VIAL IV SCH ×2 (08:10→20:48)
[2018-05-22] MEDS ORDERED: LIDOCAINE HCL 1% 20ML VIAL (Pyxis) INJ ONE (09:09)
[2018-05-22] MEDS ORDERED: SODIUM BICARBONATE 4% (2.4MEQ) 5ML VIAL IV ONE (09:09)
[2018-05-22] MEDS: HYDROCODONE/ACETAMINOPHEN 5/325MG TABLET PO PRN ×3 (09:53→22:57)
[2018-05-22 17:11] LABS: OVA & PARASITE EXAM Final report (.)
[2018-05-22] MEDS: BLOOD SUGAR DIAGNOSTIC STRIP TEST SCH (17:48)
[2018-05-22] MEDS: ZOLPIDEM TARTRATE 5MG TABLET PO PRN (20:48)
[2018-05-22] MEDS ORDERED: TOTAL PARENTERAL NUTRITION 1,600 ML IV SCH (21:00)
[2018-05-23] VITALS (11 sets, daily range): BP systolic 136–176; BP diastolic 75–103
[2018-05-23] MEDS: BLOOD SUGAR DIAGNOSTIC STRIP TEST SCH ×4 (00:15→17:03)
[2018-05-23] MEDS: HYDROMORPHONE HCL/PF 2MG/ML CPJ IV PRN ×5 (02:26→16:35)
[2018-05-23] MEDS: HYDROCODONE/ACETAMINOPHEN 5/325MG TABLET PO PRN ×3 (03:54→19:43)
[2018-05-23] MEDS: DEXT 5%/0.45% NACL 1000ML 1,000 ML IV SCH ×2 (06:01→13:16)
[2018-05-23] MEDS: MEROPENEM 1,000 MG in SODIUM CHLORIDE 0.9% 100 ML IV SCH ×3 (06:08→21:52)
[2018-05-23 06:35] LABS: BASOPHILS % 0.1 % (0.0-2.0); EOSINOPHILS % 0.1 % (0.0-5.0); HEMATOCRIT. 25.1 % (36.0-48.0); HEMOGLOBIN. 8.9 g/dL (12.0-16.0); LYMPHOCYTES % 20.6 % (20.0-50.0); MEAN CORPUSCULAR HEMOGLOBIN 31.8 pg (28.0-32.0); MEAN PLATELET VOLUME 8.1 fl (7.4-10.4); MONOCYTES % 9.8 % (2.0-8.0); NEUTROPHILS % 69.4 % (40.0-76.0); PLATELET 342 x1000/uL (130-400); RED BLOOD CELL COUNT 2.79 mill/uL (4.2-5.4); RED CELL DISTRIBUTION WIDTH 14.6 % (11.6-14.6)
[2018-05-23 07:24] LABS: CHLORIDE 112 mEq/L (98-107)
[2018-05-23] MEDS: PANTOPRAZOLE SODIUM 40 MG/VIAL IV SCH ×2 (08:02→21:52)
[2018-05-23] MEDS: CLONIDINE 0.1MG TABLET PO PRN ×2 (13:38→19:42)
[2018-05-23] MEDS: ZOLPIDEM TARTRATE 5MG TABLET PO PRN (21:07)
[2018-05-23] MEDS: TOTAL PARENTERAL NUTRITION 1,600 ML IV SCH (21:55)
[2018-05-24] VITALS: BP 145/86
[2018-05-24] MEDS: HYDROMORPHONE HCL/PF 2MG/ML CPJ IV PRN ×6 (01:07→22:27)
[2018-05-24 04:00] VITALS: BP 160/89
[2018-05-24] MEDS: DEXT 5%/0.45% NACL 1000ML 1,000 ML IV SCH (05:00)
[2018-05-24] MEDS: BLOOD SUGAR DIAGNOSTIC STRIP TEST SCH ×5 (05:46→17:12)
[2018-05-24] MEDS: HYDROCODONE/ACETAMINOPHEN 5/325MG TABLET PO PRN ×2 (06:33→14:59)
[2018-05-24] MEDS: MEROPENEM 1,000 MG in SODIUM CHLORIDE 0.9% 100 ML IV SCH ×3 (07:42→21:02)
[2018-05-24 08:00] VITALS: BP 170/90
[2018-05-24] MEDS: PANTOPRAZOLE SODIUM 40 MG/VIAL IV SCH ×2 (08:21→20:53)
[2018-05-24] MEDS: CLONIDINE 0.1MG TABLET PO PRN (10:37)
[2018-05-24 12:00] VITALS: BP 167/95
[2018-05-24 16:00] VITALS: BP 154/79
[2018-05-24 20:00] VITALS: BP 145/86
[2018-05-24] MEDS: TOTAL PARENTERAL NUTRITION 1,600 ML IV SCH (21:00)
[2018-05-24] MEDS ORDERED: TOTAL PARENTERAL NUTRITION 1,600 ML IV SCH (21:00)
[2018-05-24] MEDS: ZOLPIDEM TARTRATE 5MG TABLET PO PRN (22:25)
[2018-05-25] VITALS (10 sets, daily range): BP systolic 133–192; BP diastolic 73–108
[2018-05-25] MEDS: DEXT 5%/0.45% NACL 1000ML 1,000 ML IV SCH ×3 (05:00→13:07)
[2018-05-25] MEDS: CLONIDINE 0.1MG TABLET PO PRN (05:01)
[2018-05-25] MEDS: HYDROMORPHONE HCL/PF 2MG/ML CPJ IV PRN ×8 (05:01→20:57)
[2018-05-25] MEDS: BLOOD SUGAR DIAGNOSTIC STRIP TEST SCH ×2 (05:29→12:26)
[2018-05-25 07:09] LABS: BASOPHILS % 0.1 % (0.0-2.0); EOSINOPHILS % 0.4 % (0.0-5.0); HEMATOCRIT. 25.4 % (36.0-48.0); HEMOGLOBIN. 8.8 g/dL (12.0-16.0); LYMPHOCYTES % 35.5 % (20.0-50.0); MEAN CORPUSCULAR HEMOGLOBIN 31.2 pg (28.0-32.0); MEAN CORPUSCULAR VOLUME 90.1 fL (81.0-99.0); MEAN PLATELET VOLUME 8.4 fl (7.4-10.4); MONOCYTES % 11.9 % (2.0-8.0); NEUTROPHILS % 52.1 % (40.0-76.0); PLATELET 324 x1000/uL (130-400); RED BLOOD CELL COUNT 2.82 mill/uL (4.2-5.4); RED CELL DISTRIBUTION WIDTH 14.6 % (11.6-14.6)
[2018-05-25] MEDS: MEROPENEM 1,000 MG in SODIUM CHLORIDE 0.9% 100 ML IV SCH ×3 (07:18→21:00)
[2018-05-25] MEDS: PANTOPRAZOLE SODIUM 40 MG/VIAL IV SCH ×2 (08:02→21:02)
[2018-05-25] MEDS ORDERED: HYDRALAZINE 20MG/ML VIAL IV PRN (08:15)
[2018-05-25] MEDS ORDERED: LABETALOL 5MG/ML SYR 20 MG/4 ML SYRINGE IV NR (09:00)
[2018-05-25 09:45] LABS: CHLORIDE 109 mEq/L (98-107)
[2018-05-25] MEDS: HYDROCODONE/ACETAMINOPHEN 5/325MG TABLET PO PRN (15:27)
[2018-05-25] MEDS ORDERED: TOTAL PARENTERAL NUTRITION 1,600 ML IV SCH (21:00)
[2018-05-25] MEDS: AMLODIPINE 5MG TABLET PO SCH (21:01)
[2018-05-25] MEDS: ZOLPIDEM TARTRATE 5MG TABLET PO PRN (22:23)
[2018-05-26] VITALS: BP 162/86
[2018-05-26] MEDS: HYDROMORPHONE HCL/PF 2MG/ML CPJ IV PRN ×10 (00:26→22:56)
[2018-05-26 04:00] VITALS: BP 164/82
[2018-05-26] MEDS: MEROPENEM 1,000 MG in SODIUM CHLORIDE 0.9% 100 ML IV SCH ×2 (06:32→13:58)
[2018-05-26 06:43] LABS: HEMATOCRIT. 25.2 % (36.0-48.0); HEMOGLOBIN. 8.6 g/dL (12.0-16.0); MEAN CORPUSCULAR VOLUME 90.9 fL (81.0-99.0); MEAN PLATELET VOLUME 8.5 fl (7.4-10.4); PLATELET 302 x1000/uL (130-400); RED BLOOD CELL COUNT 2.78 mill/uL (4.2-5.4); RED CELL DISTRIBUTION WIDTH 14.6 % (11.6-14.6)
[2018-05-26 06:56] LABS: CHLORIDE 108 mEq/L (98-107)
[2018-05-26 08:00] VITALS: BP 166/90
[2018-05-26] MEDS: PANTOPRAZOLE SODIUM 40 MG/VIAL IV SCH ×2 (08:46→21:46)
[2018-05-26] MEDS: AMLODIPINE 5MG TABLET PO SCH ×2 (08:46→21:47)
[2018-05-26] MEDS: BLOOD SUGAR DIAGNOSTIC STRIP TEST SCH (08:54)
[2018-05-26] MEDS: CLONIDINE 0.1MG TABLET PO PRN (13:16)
[2018-05-26] MEDS: LOSARTAN POTASSIUM 100 MG TABLET PO SCH (13:58)
[2018-05-26 14:05] LABS: PLATELET ESTIMATE NORMAL
[2018-05-26 16:00] VITALS: BP 152/79
[2018-05-26 20:00] VITALS: BP 159/89
[2018-05-26] MEDS ORDERED: TOTAL PARENTERAL NUTRITION 1,600 ML IV SCH (21:00)
[2018-05-26] MEDS ORDERED: ZOLPIDEM TARTRATE 5MG TABLET PO PRN (21:15)
[2018-05-26] MEDS ORDERED: ACETAMINOPHEN 325MG TABLET PO PRN (21:15)
[2018-05-27] VITALS (8 sets, daily range): BP systolic 140–173; BP diastolic 78–94
[2018-05-27] MEDS: HYDROMORPHONE HCL/PF 2MG/ML CPJ IV PRN ×8 (01:04→20:21)
[2018-05-27 07:12] LABS: BASOPHILS % 0.2 % (0.0-2.0); EOSINOPHILS % 0.4 % (0.0-5.0); HEMATOCRIT. 27.4 % (36.0-48.0); HEMOGLOBIN. 9.2 g/dL (12.0-16.0); MEAN CORPUSCULAR HEMOGLOBIN 30.6 pg (28.0-32.0); MEAN CORPUSCULAR VOLUME 90.4 fL (81.0-99.0); MEAN PLATELET VOLUME 9.1 fl (7.4-10.4); MONOCYTES % 13.9 % (2.0-8.0); NEUTROPHILS % 44.5 % (40.0-76.0); PLATELET 312 x1000/uL (130-400); RED BLOOD CELL COUNT 3.03 mill/uL (4.2-5.4); RED CELL DISTRIBUTION WIDTH 14.3 % (11.6-14.6)
[2018-05-27 07:58] LABS: CHLORIDE 104 mEq/L (98-107)
[2018-05-27] MEDS: PANTOPRAZOLE SODIUM 40 MG/VIAL IV SCH ×2 (08:17→20:20)
[2018-05-27] MEDS: LOSARTAN POTASSIUM 100 MG TABLET PO SCH (08:17)
[2018-05-27] MEDS: AMLODIPINE 5MG TABLET PO SCH ×2 (08:17→20:20)
[2018-05-27] MEDS: BLOOD SUGAR DIAGNOSTIC STRIP TEST SCH ×4 (08:49→20:25)
[2018-05-27] MEDS: CLONIDINE 0.1MG TABLET PO PRN (13:31)
[2018-05-27] MEDS: HYDRALAZINE HCL 50MG TABLET PO SCH ×2 (17:50→22:04)
== END 2018-05-27 22:16 | DRG 871 ==
LOC: ER 08:05 → 3WST 10:35 → ENRESERV 12:14 → CANRESERV 12:14 → ENRESERV 18:14 → 8WST 05-23 12:27
PROVIDERS: ADMIT Internal Medicine; ATTEND Internal Medicine
PROC: 30233N1 Transfusion of Nonautologous Red Blood Cells into Peripheral Vein, Percutaneous Approach (ICD-10-PCS; 2018-05-19)
PROC: 02HV33Z Insertion of Infusion Device into Superior Vena Cava, Percutaneous Approach (ICD-10-PCS; principal; 2018-05-22)
PROC: B548ZZA Ultrasonography of Superior Vena Cava, Guidance (ICD-10-PCS; 2018-05-22)
PROC: B5181ZA Fluoroscopy of Superior Vena Cava using Low Osmolar Contrast, Guidance (ICD-10-PCS; 2018-05-22)
PROC: 3E0336Z Introduction of Nutritional Substance into Peripheral Vein, Percutaneous Approach (ICD-10-PCS; 2018-05-24)
DX: A41.9 Sepsis, unspecified organism (principal); E43 Unspecified severe protein-calorie malnutrition; N39.0 Urinary tract infection, site not specified; K92.2 Gastrointestinal hemorrhage, unspecified; E87.1 Hypo-osmolality and hyponatremia; K63.2 Fistula of intestine; E87.6 Hypokalemia; E11.9 Type 2 diabetes mellitus without complications; I11.0 Hypertensive heart disease with heart failure; J44.9 Chronic obstructive pulmonary disease, unspecified; D64.9 Anemia, unspecified; B19.20 Unspecified viral hepatitis C without hepatic coma; K52.9 Noninfective gastroenteritis and colitis, unspecified; I50.9 Heart failure, unspecified; E87.8 Other disorders of electrolyte and fluid balance, not elsewhere classified; Z87.11 Personal history of peptic ulcer disease; Z93.4 Other artificial openings of gastrointestinal tract status; Z68.20 Body mass index [BMI] 20.0-20.9, adult; Z79.899 Other long term (current) drug therapy
CPT/HCPCS: 36415; 36569; 71045; 74176; 76937; 77001; 80048; 80305; 82270; 82962; 83735; 84132; 84484; 85014; 85018; 86850; 86900; 86920; 87015; 87045; 87077; 87177; 87186; 87209; 87427; 87449; 87493; 89055; 93005; 96365; 96366; 96375; 99285; C1725; C9113; J0360; J0696; J1170; J1956; J2185; J2270; J2405; J3480; J3490; J7030; J7040; J7050; J7060; P9016; Q9963

== ENCOUNTER 2018-06-30 23:57 | Inpatient (IN) | payer MEDICARE, MEDICAID ==
[~2018-06-30] VITALS: Ht 152.4 cm; Wt 42.2 kg
[2018-07-01] VITALS (13 sets, daily range): BP systolic 106–146; BP diastolic 57–87
[2018-07-01] MEDS ORDERED: MORPHINE SULFATE 4 MG/ML CPJ (NOT FOR IM USE) IV STA (00:43)
[2018-07-01] MEDS ORDERED: ONDANSETRON HCL 4MG/2ML INJ IV STA (00:43)
[2018-07-01 01:27] LABS: BASOPHILS % 0.3 % (0.0-2.0); HEMATOCRIT. 23.7 % (36.0-48.0); HEMOGLOBIN. 7.9 g/dL (12.0-16.0); LYMPHOCYTES % 17.3 % (20.0-50.0); MEAN CORPUSCULAR HEMOGLOBIN 31.3 pg (28.0-32.0); MEAN CORPUSCULAR VOLUME 93.3 fL (81.0-99.0); MEAN PLATELET VOLUME 8.1 fl (7.4-10.4); MONOCYTES % 8.8 % (2.0-8.0); NEUTROPHILS % 73.6 % (40.0-76.0); PLATELET 371 x1000/uL (130-400); RED BLOOD CELL COUNT 2.54 mill/uL (4.2-5.4); RED CELL DISTRIBUTION WIDTH 18.8 % (11.6-14.6)
[2018-07-01 01:31] LABS: CHLORIDE 104 mEq/L (98-107)
[2018-07-01 01:32] LABS: INR 1.1; PROTHROMBIN TIME 10.7 sec (9.1-11.1)
[2018-07-01] MEDS ORDERED: POTASSIUM CHLORIDE INJ 30 MEQ in DEXT 5%/0.9% NACL 1,000 ML IV ONE (02:00)
[2018-07-01] MEDS ORDERED: PANTOPRAZOLE SODIUM 40 MG/VIAL IV ONE (02:00)
[2018-07-01 02:23] LABS: CLARITY URINE CLEAR (CLEAR); COLOR URINE YELLOW (YELLOW); KETONES URINE NEGATIVE (NEGATIVE); LEUKOCYTE ESTERASE URINE NEGATIVE (NEGATIVE); NITRITE URINE NEGATIVE (NEGATIVE); OCCULT BLOOD URINE NEGATIVE (NEGATIVE); PH URINE 5.5 (4.5-8.0); PROTEIN URINE NEGATIVE (NEGATIVE); SPECIFIC GRAVITY URINE 1.024 (1.005-1.030); UROBILINOGEN URINE 0.2 E.U./dL (0.2-1.0)
[2018-07-01] MEDS ORDERED: IOHEXOL-300 100 ML BOTTLE ONE (08:33)
[2018-07-01 09:27] LABS: HEMATOCRIT 20.7 % (36.0-48.0); HEMOGLOBIN 6.7 g/dL (12.0-16.0)
[2018-07-01] MEDS: HYDROMORPHONE HCL/PF 2MG/ML CPJ IV PRN ×3 (09:27→22:02)
[2018-07-01] MEDS ORDERED: PANTOPRAZOLE SODIUM 40 MG/VIAL IV SCH (10:00)
[2018-07-01] MEDS ORDERED: POTASSIUM CHLORIDE INJ 40 MEQ in DEXT 5% WATER 250 ML IV ONE (10:30)
[2018-07-01] MEDS: DEXT 5%/0.45% NACL 1000ML 1,000 ML IV SCH ×2 (11:23→18:39)
[2018-07-01] MEDS: MORPHINE SULFATE 4 MG/ML CPJ (NOT FOR IM USE) IV PRN ×3 (12:19→21:01)
[2018-07-01] MEDS ORDERED: POTASSIUM CHLORIDE INJ 40 MEQ in DEXT 5% WATER 250 ML IV SCH (14:30)
[2018-07-01] MEDS: PANTOPRAZOLE 40MG DR TABLET PO SCH ×2 (18:18→21:02)
[2018-07-01] MEDS: SUCRALFATE 1 G/10 ML UDC PO SCH ×2 (18:18→21:01)
[2018-07-01] MEDS: HYDROCODONE/ACETAMINOPHEN 10/325MG TABLET PO PRN (19:58)
[2018-07-01] MEDS ORDERED: CLONIDINE 0.1MG TABLET PO PRN (20:00)
[2018-07-01] MEDS: GEMFIBROZIL 600MG TABLET PO SCH (21:00)
[2018-07-01] MEDS: ONDANSETRON HCL 4MG/2ML INJ IV PRN (22:04)
[2018-07-02] VITALS (19 sets, daily range): BP systolic 120–162; BP diastolic 66–86
[2018-07-02 00:08] LABS: HEMATOCRIT 23.2 % (36.0-48.0); HEMOGLOBIN 7.8 g/dL (12.0-16.0)
[2018-07-02] MEDS: MORPHINE SULFATE 4 MG/ML CPJ (NOT FOR IM USE) IV PRN ×6 (01:27→23:45)
[2018-07-02] MEDS: HYDROCODONE/ACETAMINOPHEN 10/325MG TABLET PO PRN ×2 (03:34→18:26)
[2018-07-02] MEDS: HYDROMORPHONE HCL/PF 2MG/ML CPJ IV PRN (05:45)
[2018-07-02] MEDS: DEXT 5%/0.45% NACL 1000ML 1,000 ML IV SCH ×2 (05:46→16:02)
[2018-07-02] MEDS: SUCRALFATE 1 G/10 ML UDC PO SCH ×4 (07:30→20:24)
[2018-07-02] MEDS: GEMFIBROZIL 600MG TABLET PO SCH ×2 (08:00→18:24)
[2018-07-02 08:35] LABS: BASOPHILS % 0.4 % (0.0-2.0); EOSINOPHILS % 0.8 % (0.0-5.0); HEMATOCRIT. 21.7 % (36.0-48.0); HEMOGLOBIN. 7.3 g/dL (12.0-16.0); LYMPHOCYTES % 34.2 % (20.0-50.0); MEAN CORPUSCULAR HEMOGLOBIN 31.6 pg (28.0-32.0); MEAN CORPUSCULAR VOLUME 93.5 fL (81.0-99.0); MEAN PLATELET VOLUME 8.1 fl (7.4-10.4); MONOCYTES % 13.2 % (2.0-8.0); NEUTROPHILS % 51.4 % (40.0-76.0); PLATELET 250 x1000/uL (130-400); RED BLOOD CELL COUNT 2.32 mill/uL (4.2-5.4); RED CELL DISTRIBUTION WIDTH 17.8 % (11.6-14.6)
[2018-07-02] MEDS: PANTOPRAZOLE 40MG DR TABLET PO SCH ×2 (08:56→20:24)
[2018-07-02] MEDS: ATENOLOL 25MG TABLET PO SCH (09:00)
[2018-07-02] MEDS: AMLODIPINE 2.5MG TABLET PO SCH (09:00)
[2018-07-02 09:09] LABS: CHLORIDE 111 mEq/L (98-107)
[2018-07-02] MEDS ORDERED: SIMETHICONE 40 MG/0.6 ML 30ML ONE (11:52)
[2018-07-02 12:39] LABS: *AMPHETAMINES SCREEN URINE NEGATIVE (NEGATIVE); *BARBITURATES SCREEN URINE NEGATIVE (NEGATIVE); *BENZODIAZEPINES SCREEN URINE NEGATIVE (NEGATIVE); *COCAINE SCREEN URINE NEGATIVE (NEGATIVE); METHADONE URINE SCREEN NEGATIVE (NEGATIVE)
[2018-07-02 12:40] LABS: CANNABINOID URINE SCREEN NEGATIVE (NEGATIVE); OPIATES URINE SCREEN PRESUMTIVE POSITIVE (NEGATIVE); PHENCYCLIDINE URINE SCREEN NEGATIVE (NEGATIVE)
[2018-07-02] MEDS ORDERED: MIDAZOLAM HCL 5 MG/5 ML VIAL ONE (13:38)
[2018-07-02] MEDS ORDERED: FENTANYL CITRATE/PF 50MCG/ML 2ML VIAL ONE (13:38)
[2018-07-02] MEDS ORDERED: MIDAZOLAM HCL 2 MG/2 ML VIAL IV PRN (13:40)
[2018-07-02] MEDS ORDERED: FENTANYL CITRATE/PF 50MCG/ML 2ML VIAL IV PRN (13:41)
[2018-07-02] MEDS ORDERED: DIPHENHYDRAMINE 50MG/ML VIAL ONE (13:45)
[2018-07-02] MEDS ORDERED: SODIUM CHLORIDE 0.9% 10ML VIAL ONE (13:54)
[2018-07-03] VITALS (12 sets, daily range): BP systolic 143–169; BP diastolic 66–96
[2018-07-03] MEDS: HYDROCODONE/ACETAMINOPHEN 10/325MG TABLET PO PRN ×3 (01:09→23:04)
[2018-07-03] MEDS: DEXT 5%/0.45% NACL 1000ML 1,000 ML IV SCH ×3 (01:10→21:59)
[2018-07-03 01:30] LABS: HEMATOCRIT 28.2 % (36.0-48.0); HEMOGLOBIN 9.6 g/dL (12.0-16.0)
[2018-07-03] MEDS: ONDANSETRON HCL 4MG/2ML INJ IV PRN (02:09)
[2018-07-03] MEDS: MORPHINE SULFATE 4 MG/ML CPJ (NOT FOR IM USE) IV PRN ×6 (02:58→20:51)
[2018-07-03 09:28] LABS: HEMATOCRIT. 29.1 % (36.0-48.0); HEMOGLOBIN. 9.8 g/dL (12.0-16.0); MEAN CORPUSCULAR HEMOGLOBIN 31.6 pg (28.0-32.0); MEAN CORPUSCULAR VOLUME 94.3 fL (81.0-99.0); MEAN PLATELET VOLUME 8.8 fl (7.4-10.4); PLATELET 275 x1000/uL (130-400); RED BLOOD CELL COUNT 3.09 mill/uL (4.2-5.4); RED CELL DISTRIBUTION WIDTH 16.7 % (11.6-14.6)
[2018-07-03] MEDS: SUCRALFATE 1 G/10 ML UDC PO SCH ×4 (09:53→20:49)
[2018-07-03] MEDS: AMLODIPINE 2.5MG TABLET PO SCH (09:54)
[2018-07-03] MEDS: GEMFIBROZIL 600MG TABLET PO SCH ×2 (09:55→17:32)
[2018-07-03] MEDS: ATENOLOL 25MG TABLET PO SCH (09:55)
[2018-07-03] MEDS: PANTOPRAZOLE 40MG DR TABLET PO SCH ×2 (09:56→20:59)
[2018-07-03 10:11] LABS: PLATELET ESTIMATE NORMAL
[2018-07-03 10:57] LABS: CHLORIDE 113 mEq/L (98-107)
[2018-07-03] MEDS ORDERED: POTASSIUM CHLORIDE 20MEQ TABLET SR PO NR (15:00)
[2018-07-04] VITALS (11 sets, daily range): BP systolic 154–171; BP diastolic 73–99
[2018-07-04] MEDS: MORPHINE SULFATE 4 MG/ML CPJ (NOT FOR IM USE) IV PRN ×5 (00:19→15:26)
[2018-07-04] MEDS: DEXT 5%/0.45% NACL 1000ML 1,000 ML IV SCH (06:57)
[2018-07-04 06:58] LABS: CHLORIDE 111 mEq/L (98-107)
[2018-07-04 07:01] LABS: HEMATOCRIT. 32.4 % (36.0-48.0); HEMOGLOBIN. 10.7 g/dL (12.0-16.0); MEAN CORPUSCULAR HEMOGLOBIN 31.8 pg (28.0-32.0); MEAN CORPUSCULAR VOLUME 96.3 fL (81.0-99.0); MEAN PLATELET VOLUME 8.4 fl (7.4-10.4); PLATELET 297 x1000/uL (130-400); RED BLOOD CELL COUNT 3.36 mill/uL (4.2-5.4); RED CELL DISTRIBUTION WIDTH 17.4 % (11.6-14.6)
[2018-07-04] MEDS: PANTOPRAZOLE 40MG DR TABLET PO SCH (08:14)
[2018-07-04] MEDS: SUCRALFATE 1 G/10 ML UDC PO SCH ×2 (08:14→11:36)
[2018-07-04] MEDS: AMLODIPINE 2.5MG TABLET PO SCH (08:14)
[2018-07-04] MEDS: GEMFIBROZIL 600MG TABLET PO SCH (08:14)
[2018-07-04] MEDS: ATENOLOL 25MG TABLET PO SCH ×2 (08:15→11:37)
[2018-07-04] MEDS: HYDROCODONE/ACETAMINOPHEN 10/325MG TABLET PO PRN (09:45)
[2018-07-04] MEDS ORDERED: AMLODIPINE 5MG TABLET PO NR (16:45)
[2018-07-05 09:43] LABS: PLATELET ESTIMATE NORMAL
== END 2018-07-04 17:30 | disposition home or self-care (01) | DRG 380 ==
LOC: ER 23:57 → EDBEDREQ 07-01 05:07 → EDBEDREQSVC 07-01 05:07 → 5EST 07-01 05:56 → EDBEDREQ 07-01 05:56 → ENRESERV 07-01 07:15 → 5EST 07-01 09:34
PROVIDERS: ADMIT Internal Medicine; ATTEND Internal Medicine
PROC: 30233N1 Transfusion of Nonautologous Red Blood Cells into Peripheral Vein, Percutaneous Approach (ICD-10-PCS; principal; 2018-07-01)
PROC: 0DB88ZX Excision of Small Intestine, Via Natural or Artificial Opening Endoscopic, Diagnostic (ICD-10-PCS; 2018-07-02)
DX: K22.11 Ulcer of esophagus with bleeding (principal); E43 Unspecified severe protein-calorie malnutrition; Z68.1 Body mass index [BMI] 19.9 or less, adult; E87.6 Hypokalemia; J44.9 Chronic obstructive pulmonary disease, unspecified; E11.9 Type 2 diabetes mellitus without complications; D50.9 Iron deficiency anemia, unspecified; B19.20 Unspecified viral hepatitis C without hepatic coma; E78.5 Hyperlipidemia, unspecified; G89.4 Chronic pain syndrome; I11.0 Hypertensive heart disease with heart failure; I50.9 Heart failure, unspecified; K21.9 Gastro-esophageal reflux disease without esophagitis; K44.9 Diaphragmatic hernia without obstruction or gangrene; K57.90 Diverticulosis of intestine, part unspecified, without perforation or abscess without bleeding; M19.90 Unspecified osteoarthritis, unspecified site; Z87.11 Personal history of peptic ulcer disease; Z90.3 Acquired absence of stomach [part of]; Z79.1 Long term (current) use of non-steroidal anti-inflammatories (NSAID); Z79.2 Long term (current) use of antibiotics; Z79.899 Other long term (current) drug therapy
CPT/HCPCS: 36415; 71045; 74177; 80048; 80305; 82941; 83605; 83880; 84132; 84145; 84484; 85014; 85018; 86850; 86900; 86920; 88305; 93005; 93970; 96365; 96375; 99152; 99291; C9113; J1170; J1200; J2250; J2270; J2405; J3010; J3480; J7040; J7042; J7050; J7060; P9016; Q9967; G0500

== ENCOUNTER 2018-10-12 01:09 | Inpatient (IN) | payer MEDICARE, MEDICAID ==
[~2018-10-12] VITALS: Ht 152.4 cm; Wt 36.1 kg
[~2018-10-12 01:09] MED LIST changes: -FLUC200T PO; -HYDR-4009 MT; -LEVO500T89 PO
[2018-10-12] MEDS ORDERED: ONDANSETRON HCL 4MG/2ML INJ IV STA (02:14)
[2018-10-12] MEDS ORDERED: MORPHINE SULFATE 4 MG/ML CPJ (NOT FOR IM USE) IV STA (02:14)
[2018-10-12] MEDS ORDERED: SODIUM CHLORIDE 0.9% 1,000 ML IV ONE (02:14)
[2018-10-12 02:50] LABS: CLARITY URINE CLEAR (CLEAR); COLOR URINE YELLOW (YELLOW); KETONES URINE NEGATIVE (NEGATIVE); LEUKOCYTE ESTERASE URINE NEGATIVE (NEGATIVE); NITRITE URINE NEGATIVE (NEGATIVE); OCCULT BLOOD URINE NEGATIVE (NEGATIVE); PROTEIN URINE NEGATIVE (NEGATIVE); SPECIFIC GRAVITY URINE 1.015 (1.005-1.030); UROBILINOGEN URINE 0.2 E.U./dL (0.2-1.0)
[2018-10-12 03:29] LABS: BASOPHILS % 0.7 % (0.0-2.0); EOSINOPHILS % 0.4 % (0.0-5.0); HEMATOCRIT. 23.4 % (36.0-48.0); HEMOGLOBIN. 7.6 g/dL (12.0-16.0); LYMPHOCYTES % 47.7 % (20.0-50.0); MEAN CORPUSCULAR HEMOGLOBIN 33.6 pg (28.0-32.0); MEAN CORPUSCULAR VOLUME 103.9 fL (81.0-99.0); MEAN PLATELET VOLUME 9.1 fl (7.4-10.4); MONOCYTES % 9.2 % (2.0-8.0); PLATELET 260 x1000/uL (130-400); RED BLOOD CELL COUNT 2.26 mill/uL (4.2-5.4); RED CELL DISTRIBUTION WIDTH 16.8 % (11.6-14.6)
[2018-10-12 03:34] LABS: CHLORIDE 115 mEq/L (98-107)
[2018-10-12 03:37] LABS: INR 1.1; PROTHROMBIN TIME 10.9 sec (9.6-11.0)
[2018-10-12] MEDS ORDERED: IPRATROPIUM/ALBUTEROL 0.5-3(2.5)MG/3ML NEB INH PRN (09:00)
[2018-10-12] MEDS ORDERED: MAGNESIUM/ALUMINUM HYDROXIDE/SIMETHICONE 30ML UDC PO PRN (09:00)
[2018-10-12] MEDS ORDERED: DOCUSATE SODIUM 100MG CAPSULE PO PRN (09:00)
[2018-10-12] MEDS ORDERED: ONDANSETRON HCL 4MG/2ML INJ IV PRN (09:00)
[2018-10-12] MEDS ORDERED: CLONIDINE 0.1MG TABLET PO PRN (09:00)
[2018-10-12] MEDS ORDERED: GUAIFENESIN 200MG/10ML SUGAR FREE UDC PO PRN (09:00)
[2018-10-12] MEDS ORDERED: DIPHENHYDRAMINE 50MG/ML VIAL IV PRN (09:00)
[2018-10-12] MEDS ORDERED: ACETAMINOPHEN 325MG TABLET PO PRN (09:00)
[2018-10-12 10:49] VITALS: BP 146/77
[2018-10-12 10:55] VITALS: BP 146/77
[2018-10-12 12:27] LABS: PHOSPHORUS 3.8 mg/dL (2.5-4.9)
[2018-10-12 12:40] VITALS: BP 134/68
[2018-10-12 13:02] LABS: VITAMIN B12 SERUM 557 pg/mL (211-911)
[2018-10-12 13:05] LABS: FOLIC ACID (FOLATE) SERUM > 20.00 ng/mL (>5.38)
[2018-10-12 15:42] LABS: CREATINE KINASE MB FRACTION 1.7 ng/mL (0.5-3.6)
[2018-10-12 16:30] VITALS: BP 121/57
[2018-10-12] MEDS: MORPHINE SULFATE 4 MG/ML CPJ (NOT FOR IM USE) IV PRN ×2 (17:04→22:42)
[2018-10-12] MEDS ORDERED: AZITHROMYCIN 500 MG TABLET PO SCH (18:00)
[2018-10-12 20:00] VITALS: BP 120/59
[2018-10-12] MEDS: OMEPRAZOLE 20MG CAPSULE EXTENDED RELEASE PO SCH (20:29)
[2018-10-12] MEDS: AZITHROMYCIN 500 MG TABLET PO SCH (20:30)
[2018-10-12 23:32] LABS: CREATINE KINASE MB FRACTION 1.3 ng/mL (0.5-3.6)
[2018-10-13] VITALS: BP 126/66
[2018-10-13 04:00] VITALS: BP 136/70
[2018-10-13] MEDS: OMEPRAZOLE 20MG CAPSULE EXTENDED RELEASE PO SCH (06:20)
[2018-10-13] MEDS: MORPHINE SULFATE 4 MG/ML CPJ (NOT FOR IM USE) IV PRN ×2 (06:21→12:24)
[2018-10-13 07:50] LABS: BASOPHILS % 0.6 % (0.0-2.0); EOSINOPHILS % 0.8 % (0.0-5.0); HEMATOCRIT. 30.3 % (36.0-48.0); HEMOGLOBIN. 9.8 g/dL (12.0-16.0); LYMPHOCYTES % 45.1 % (20.0-50.0); MEAN CORPUSCULAR HEMOGLOBIN 32.1 pg (28.0-32.0); MEAN PLATELET VOLUME 9.1 fl (7.4-10.4); MONOCYTES % 9.4 % (2.0-8.0); NEUTROPHILS % 44.1 % (40.0-76.0); PLATELET 257 x1000/uL (130-400); RED BLOOD CELL COUNT 3.06 mill/uL (4.2-5.4); RED CELL DISTRIBUTION WIDTH 18.7 % (11.6-14.6)
[2018-10-13 08:16] LABS: CHLORIDE 114 mEq/L (98-107)
[2018-10-13 08:30] LABS: LDL CHOLESTEROL 42 mg/dL (5-100)
[2018-10-13 08:31] LABS: HDL CHOLESTEROL 36 mg/dL (40-59)
[2018-10-13] MEDS: AZITHROMYCIN 500 MG TABLET PO SCH (09:49)
[2018-10-13 12:00] VITALS: BP 115/59
[2018-10-13 12:24] VITALS: BP 115/59
== END 2018-10-13 14:32 | disposition left against medical advice (07) | DRG 377 ==
LOC: ER 01:09 → 6WST 05:20 → EDBEDREQ 05:21 → EDBEDREQTM 05:21 → ENRESERV 08:04
PROVIDERS: ADMIT Internal Medicine; ATTEND Internal Medicine
PROC: 30233N1 Transfusion of Nonautologous Red Blood Cells into Peripheral Vein, Percutaneous Approach (ICD-10-PCS; principal; 2018-10-12)
DX: K92.2 Gastrointestinal hemorrhage, unspecified (principal); J18.9 Pneumonia, unspecified organism; D50.0 Iron deficiency anemia secondary to blood loss (chronic); D53.9 Nutritional anemia, unspecified; E11.649 Type 2 diabetes mellitus with hypoglycemia without coma; E78.00 Pure hypercholesterolemia, unspecified; K44.9 Diaphragmatic hernia without obstruction or gangrene; E78.5 Hyperlipidemia, unspecified; E87.6 Hypokalemia; F17.200 Nicotine dependence, unspecified, uncomplicated; I10 Essential (primary) hypertension; J44.9 Chronic obstructive pulmonary disease, unspecified; Z87.11 Personal history of peptic ulcer disease; Z87.19 Personal history of other diseases of the digestive system; Z90.3 Acquired absence of stomach [part of]; Z79.899 Other long term (current) drug therapy
CPT/HCPCS: 36415; 74176; 80061; 82550; 82553; 82607; 82746; 82941; 83036; 83735; 84100; 84443; 84484; 86850; 86900; 86920; 93970; 96374; 96375; 99285; J2270; J2405; J7030; J7040; P9016

== ENCOUNTER 2018-12-01 08:15 | Inpatient (IN) | payer MEDICARE, MEDICAID ==
[~2018-12-01] VITALS: Ht 152.4 cm; Wt 45.0 kg
[~2018-12-01 08:15] MED LIST changes: -GEMF600T4 MT; +GEMF600T5 PO
[2018-12-01] MEDS ORDERED: MORPHINE SULFATE 4 MG/ML CPJ (NOT FOR IM USE) IV STA (09:39)
[2018-12-01] MEDS ORDERED: ONDANSETRON HCL 4MG/2ML INJ IV STA (09:39)
[2018-12-01] MEDS ORDERED: SODIUM CHLORIDE 0.9% 1,000 ML IV ONE (09:39)
[2018-12-01 09:49] LABS: BASOPHILS % 0.2 % (0.0-2.0); HEMATOCRIT. 36.2 % (36.0-48.0); HEMOGLOBIN. 11.9 g/dL (12.0-16.0); MEAN CORPUSCULAR HEMOGLOBIN 31.9 pg (28.0-32.0); MEAN CORPUSCULAR VOLUME 96.8 fL (81.0-99.0); MONOCYTES % 7.8 % (2.0-8.0); PLATELET 360 x1000/uL (130-400); RED BLOOD CELL COUNT 3.74 mill/uL (4.2-5.4); RED CELL DISTRIBUTION WIDTH 15.8 % (11.6-14.6)
[2018-12-01 09:54] LABS: ETHANOL BLOOD < 10 mg/dL; PROTHROMBIN TIME 10.3 sec (9.6-11.0)
[2018-12-01 10:00] LABS: CHLORIDE 102 mEq/L (98-107)
[2018-12-01] MEDS ORDERED: POTASSIUM CHLORIDE 20MEQ TABLET SR PO ONE (10:15)
[2018-12-01 11:25] LABS: CLARITY URINE CLEAR (CLEAR); COLOR URINE YELLOW (YELLOW); KETONES URINE 2+ (NEGATIVE); LEUKOCYTE ESTERASE URINE TRACE (NEGATIVE); NITRITE URINE NEGATIVE (NEGATIVE); OCCULT BLOOD URINE NEGATIVE (NEGATIVE); PROTEIN URINE 2+ (NEGATIVE); SPECIFIC GRAVITY URINE 1.026 (1.005-1.030)
[2018-12-01 11:53] LABS: *AMPHETAMINES SCREEN URINE NEGATIVE (NEGATIVE); *BARBITURATES SCREEN URINE NEGATIVE (NEGATIVE); *BENZODIAZEPINES SCREEN URINE PRESUMTIVE POSITIVE (NEGATIVE); *COCAINE SCREEN URINE PRESUMTIVE POSITIVE (NEGATIVE)
[2018-12-01 11:54] LABS: CANNABINOID URINE SCREEN NEGATIVE (NEGATIVE); METHADONE URINE SCREEN NEGATIVE (NEGATIVE); OPIATES URINE SCREEN PRESUMTIVE POSITIVE (NEGATIVE); PHENCYCLIDINE URINE SCREEN NEGATIVE (NEGATIVE)
[2018-12-01] MEDS ORDERED: ONDANSETRON HCL 4MG/2ML INJ IV ONE (12:15)
[2018-12-01] MEDS ORDERED: MORPHINE SULFATE 4 MG/ML CPJ (NOT FOR IM USE) IV ONE ×2 (12:15→13:30)
[2018-12-01] MEDS ORDERED: IOHEXOL-300 100 ML BOTTLE ONE (13:34)
[2018-12-01] MEDS ORDERED: CEFTRIAXONE 1 G PREMIX 50 ML IV ONE (13:45)
[2018-12-01] MEDS ORDERED: METRONIDAZOLE 500 MG PREMIX 100 ML IV ONE (13:45)
[2018-12-01] MEDS ORDERED: CLONIDINE 0.3MG TABLET PO SCH (18:15)
[2018-12-01 20:00] VITALS: BP_SYST 157; BP_SYST 176; BP_DIAS 104; BP_DIAS 88
[2018-12-01] MEDS ORDERED: MAGNESIUM/ALUMINUM HYDROXIDE/SIMETHICONE 30ML UDC PO PRN (21:30)
[2018-12-01] MEDS ORDERED: DOCUSATE SODIUM 100MG CAPSULE PO PRN (21:30)
[2018-12-01] MEDS ORDERED: DIPHENHYDRAMINE 50MG/ML VIAL IV PRN (21:30)
[2018-12-01] MEDS ORDERED: NA PHOS,M-B/NA PHOS,DI-BA ENEMA 118ML PR PRN (21:30)
[2018-12-01] MEDS ORDERED: IPRATROPIUM/ALBUTEROL 0.5-3(2.5)MG/3ML NEB INH PRN (21:30)
[2018-12-01] MEDS ORDERED: GUAIFENESIN 200MG/10ML SUGAR FREE UDC PO PRN (21:30)
[2018-12-01] MEDS ORDERED: HYDROCODONE/ACETAMINOPHEN 5/325MG TABLET PO PRN (21:30)
[2018-12-01] MEDS ORDERED: LEVOFLOXACIN 500MG PREMIX 100 ML IV SCH (22:00)
[2018-12-01] MEDS: SODIUM CHLORIDE 0.45% 1,000 ML IV SCH (22:42)
[2018-12-01] MEDS: MORPHINE SULFATE 2 MG/ML CPJ (NOT FOR IM USE) IV PRN (22:49)
[2018-12-01] MEDS: METRONIDAZOLE 500 MG PREMIX 100 ML IV SCH (23:15)
[2018-12-02] VITALS: BP 124/78
[2018-12-02] MEDS: LEVOFLOXACIN 500MG PREMIX 100 ML IV SCH (00:18)
[2018-12-02] MEDS ORDERED: DEXTROSE 50% WATER 50ML SYRINGE IV PRN (01:15)
[2018-12-02 02:10] LABS: CHLORIDE 106 mEq/L (98-107)
[2018-12-02 04:00] VITALS: BP 148/86
[2018-12-02] MEDS: METRONIDAZOLE 500 MG PREMIX 100 ML IV SCH ×2 (05:17→14:35)
[2018-12-02] MEDS: BLOOD SUGAR DIAGNOSTIC STRIP TEST SCH ×3 (06:31→21:00)
[2018-12-02] MEDS: MORPHINE SULFATE 2 MG/ML CPJ (NOT FOR IM USE) IV PRN ×5 (06:32→22:26)
[2018-12-02] MEDS: INSULIN LISPRO 100 UNITS/ML SUBCUT SCH ×3 (07:50→21:00)
[2018-12-02 08:00] VITALS: BP 175/86
[2018-12-02] MEDS ORDERED: POTASSIUM CHLORIDE 20MEQ TABLET SR PO NR (08:00)
[2018-12-02 08:42] LABS: HEMATOCRIT. 33.7 % (36.0-48.0); HEMOGLOBIN. 11.1 g/dL (12.0-16.0); LYMPHOCYTES % 16.8 % (20.0-50.0); MEAN CORPUSCULAR HEMOGLOBIN 32.3 pg (28.0-32.0); MEAN PLATELET VOLUME 8.5 fl (7.4-10.4); MONOCYTES % 9.6 % (2.0-8.0); NEUTROPHILS % 73.6 % (40.0-76.0); PLATELET 279 x1000/uL (130-400); RED BLOOD CELL COUNT 3.44 mill/uL (4.2-5.4)
[2018-12-02] MEDS ORDERED: DIATR MEGLU/DIATRIZOATE SOLN 30ML PO NR (09:15)
[2018-12-02] MEDS ORDERED: DIATR MEGLU/DIATRIZOATE SOLN 120ML ONE (09:18)
[2018-12-02] MEDS: AMLODIPINE 10MG TABLET PO SCH (09:19)
[2018-12-02] MEDS: LISINOPRIL 20MG TABLET PO SCH (09:19)
[2018-12-02] MEDS: ENOXAPARIN 40MG/0.4ML SYR SUBCUT SCH (11:45)
[2018-12-02 12:00] VITALS: BP 130/84
[2018-12-02] MEDS: ONDANSETRON HCL 4MG/2ML INJ IV PRN ×2 (13:49→19:55)
[2018-12-02 16:00] VITALS: BP 140/66
[2018-12-02 20:00] VITALS: BP 132/83
[2018-12-02] MEDS: SODIUM CHLORIDE 0.45% 1,000 ML IV SCH (22:46)
[2018-12-02] MEDS: LORAZEPAM 2MG/ML CPJ IV PRN (22:57)
[2018-12-03] VITALS: BP 128/85
[2018-12-03] MEDS: METRONIDAZOLE 500 MG PREMIX 100 ML IV SCH ×4 (01:46→22:40)
[2018-12-03] MEDS: LEVOFLOXACIN 500MG PREMIX 100 ML IV SCH (01:47)
[2018-12-03] MEDS: LORAZEPAM 2MG/ML CPJ IV PRN ×3 (02:59→20:31)
[2018-12-03 04:00] VITALS: BP 137/85
[2018-12-03] MEDS: MORPHINE SULFATE 2 MG/ML CPJ (NOT FOR IM USE) IV PRN ×4 (05:12→22:40)
[2018-12-03] MEDS: BLOOD SUGAR DIAGNOSTIC STRIP TEST SCH ×4 (06:40→20:38)
[2018-12-03] MEDS: SODIUM CHLORIDE 0.45% 1,000 ML IV SCH (06:40)
[2018-12-03 06:44] LABS: CHLORIDE 106 mEq/L (98-107)
[2018-12-03 06:54] LABS: BASOPHILS % 0.1 % (0.0-2.0); HEMOGLOBIN. 8.4 g/dL (12.0-16.0); LYMPHOCYTES % 17.4 % (20.0-50.0); MEAN CORPUSCULAR HEMOGLOBIN 33.1 pg (28.0-32.0); MEAN CORPUSCULAR VOLUME 98.3 fL (81.0-99.0); MEAN PLATELET VOLUME 8.9 fl (7.4-10.4); MONOCYTES % 10.5 % (2.0-8.0); PLATELET 247 x1000/uL (130-400); RED BLOOD CELL COUNT 2.54 mill/uL (4.2-5.4); RED CELL DISTRIBUTION WIDTH 15.4 % (11.6-14.6)
[2018-12-03] MEDS: INSULIN LISPRO 100 UNITS/ML SUBCUT SCH ×4 (07:50→20:44)
[2018-12-03 08:00] VITALS: BP 126/81
[2018-12-03] MEDS: ENOXAPARIN 40MG/0.4ML SYR SUBCUT SCH (09:00)
[2018-12-03] MEDS: LISINOPRIL 20MG TABLET PO SCH (09:13)
[2018-12-03] MEDS: AMLODIPINE 10MG TABLET PO SCH (09:13)
[2018-12-03 12:00] VITALS: BP 159/82
[2018-12-03] MEDS ORDERED: POTASSIUM CHLORIDE INJ 40 MEQ in DEXT 5% WATER 500 ML IV NR (12:00)
[2018-12-03 16:00] VITALS: BP 148/82
[2018-12-03 20:00] VITALS: BP 138/84
[2018-12-04] VITALS: BP 177/94
[2018-12-04] MEDS: LEVOFLOXACIN 500MG PREMIX 100 ML IV SCH ×2 (00:52→23:51)
[2018-12-04] MEDS: SODIUM CHLORIDE 0.45% 1,000 ML IV SCH ×2 (00:52→17:32)
[2018-12-04] MEDS: CLONIDINE 0.1MG TABLET PO PRN (00:53)
[2018-12-04 04:00] VITALS: BP 121/84
[2018-12-04] MEDS: BLOOD SUGAR DIAGNOSTIC STRIP TEST SCH ×3 (06:09→20:54)
[2018-12-04] MEDS: MORPHINE SULFATE 2 MG/ML CPJ (NOT FOR IM USE) IV PRN ×4 (06:11→23:53)
[2018-12-04] MEDS: METRONIDAZOLE 500 MG PREMIX 100 ML IV SCH ×3 (06:12→22:41)
[2018-12-04] MEDS: INSULIN LISPRO 100 UNITS/ML SUBCUT SCH ×4 (07:50→20:59)
[2018-12-04] MEDS: LISINOPRIL 20MG TABLET PO SCH (09:00)
[2018-12-04] MEDS: AMLODIPINE 10MG TABLET PO SCH (09:00)
[2018-12-04] MEDS: ENOXAPARIN 40MG/0.4ML SYR SUBCUT SCH (09:00)
[2018-12-04] MEDS: LORAZEPAM 2MG/ML CPJ IV PRN ×2 (11:13→19:40)
[2018-12-04 11:59] LABS: BASOPHILS % 0.1 % (0.0-2.0); LYMPHOCYTES % 18.9 % (20.0-50.0); MEAN CORPUSCULAR HEMOGLOBIN 31.9 pg (28.0-32.0); MEAN CORPUSCULAR VOLUME 101.8 fL (81.0-99.0); MEAN PLATELET VOLUME 9.2 fl (7.4-10.4); MONOCYTES % 7.3 % (2.0-8.0); NEUTROPHILS % 73.7 % (40.0-76.0); PLATELET 229 x1000/uL (130-400); RED BLOOD CELL COUNT 1.92 mill/uL (4.2-5.4); RED CELL DISTRIBUTION WIDTH 14.9 % (11.6-14.6)
[2018-12-04 12:15] LABS: HEMOGLOBIN. 6.1 g/dL (12.0-16.0)
[2018-12-04 12:16] LABS: HEMATOCRIT. 19.6 % (36.0-48.0)
[2018-12-04] MEDS ORDERED: BACTERIOSTATIC SODIUM CHLORIDE 0.9% 30ML VIAL IJ ONE (13:51)
[2018-12-04] MEDS ORDERED: MIDAZOLAM HCL 5 MG/5 ML VIAL ONE (14:16)
[2018-12-04] MEDS ORDERED: FENTANYL CITRATE/PF 50MCG/ML 2ML VIAL ONE (14:16)
[2018-12-04] MEDS ORDERED: MIDAZOLAM HCL 5 MG/5 ML VIAL IV PRN (14:17)
[2018-12-04 16:33] VITALS: BP 123/74
[2018-12-04 17:34] VITALS: BP 122/73
[2018-12-04 19:21] LABS: TOTAL IRON BINDING CAPACITY 239 ug/dL (250-450)
[2018-12-04 19:23] LABS: HEMATOCRIT 24.5 % (36.0-48.0); HEMOGLOBIN 8.3 g/dL (12.0-16.0)
[2018-12-04 20:46] VITALS: BP 111/76
[2018-12-04 22:01] VITALS: BP 112/53
[2018-12-05] VITALS (55 sets, daily range): BP systolic 87–140; BP diastolic 51–91
[2018-12-05] MEDS: LORAZEPAM 2MG/ML CPJ IV PRN ×2 (02:29→17:09)
[2018-12-05] MEDS: MORPHINE SULFATE 2 MG/ML CPJ (NOT FOR IM USE) IV PRN ×6 (04:04→22:47)
[2018-12-05] MEDS: BLOOD SUGAR DIAGNOSTIC STRIP TEST SCH ×3 (05:59→21:45)
[2018-12-05] MEDS: METRONIDAZOLE 500 MG PREMIX 100 ML IV SCH ×3 (05:59→21:45)
[2018-12-05] MEDS: INSULIN LISPRO 100 UNITS/ML SUBCUT SCH ×4 (06:53→21:45)
[2018-12-05 07:03] LABS: BASOPHILS % 0.1 % (0.0-2.0); LYMPHOCYTES % 11.7 % (20.0-50.0); MEAN CORPUSCULAR HEMOGLOBIN 32.2 pg (28.0-32.0); MEAN CORPUSCULAR VOLUME 94.5 fL (81.0-99.0); MEAN PLATELET VOLUME 9.8 fl (7.4-10.4); NEUTROPHILS % 83.2 % (40.0-76.0); PLATELET 192 x1000/uL (130-400); RED BLOOD CELL COUNT 1.83 mill/uL (4.2-5.4)
[2018-12-05 07:22] LABS: HEMATOCRIT. 17.3 % (36.0-48.0); HEMOGLOBIN. 5.9 g/dL (12.0-16.0)
[2018-12-05] MEDS ORDERED: LIDOCAINE HCL 1% 20ML VIAL (Pyxis) INJ ONE (08:55)
[2018-12-05] MEDS: ENOXAPARIN 30MG/0.3ML SYR SUBCUT SCH (08:56)
[2018-12-05] MEDS: PANTOPRAZOLE SODIUM 40 MG/VIAL IV SCH (08:59)
[2018-12-05] MEDS: AMLODIPINE 10MG TABLET PO SCH (09:00)
[2018-12-05] MEDS: LISINOPRIL 20MG TABLET PO SCH (09:00)
[2018-12-05] MEDS: SODIUM CHLORIDE 0.45% 1,000 ML IV SCH (09:52)
[2018-12-05] MEDS: KCL 20MEQ/100ML PREMIX 100 ML IV SCH ×2 (10:00→13:01)
[2018-12-05 14:19] LABS: HEMATOCRIT 28.1 % (36.0-48.0); HEMOGLOBIN 9.7 g/dL (12.0-16.0)
[2018-12-05] MEDS: DEXT 5%/0.45% NACL 1000ML 1,000 ML IV SCH (19:54)
[2018-12-05 20:54] LABS: HEMATOCRIT 25.9 % (36.0-48.0)
[2018-12-05] MEDS: SUCRALFATE 1 G/10 ML UDC PO SCH (21:44)
[2018-12-05] MEDS: LEVOFLOXACIN 500MG PREMIX 100 ML IV SCH (23:18)
[2018-12-05] MEDS ORDERED: BLOOD SUGAR DIAGNOSTIC STRIP TEST SCH (23:50)
[2018-12-06] VITALS (38 sets, daily range): BP systolic 95–119; BP diastolic 46–72
[2018-12-06] MEDS: INSULIN LISPRO 100 UNITS/ML SUBCUT SCH ×5 (01:00→21:29)
[2018-12-06] MEDS: BLOOD SUGAR DIAGNOSTIC STRIP TEST SCH ×5 (01:01→21:21)
[2018-12-06 01:02] LABS: HEMATOCRIT 23.2 % (36.0-48.0); HEMOGLOBIN 8.1 g/dL (12.0-16.0)
[2018-12-06] MEDS: MORPHINE SULFATE 2 MG/ML CPJ (NOT FOR IM USE) IV PRN ×5 (04:04→21:36)
[2018-12-06] MEDS: METRONIDAZOLE 500 MG PREMIX 100 ML IV SCH ×3 (05:33→21:21)
[2018-12-06] MEDS: DEXT 5%/0.45% NACL 1000ML 1,000 ML IV SCH ×2 (05:33→15:48)
[2018-12-06 05:40] LABS: BASOPHILS % 0.1 % (0.0-2.0); EOSINOPHILS % 0.1 % (0.0-5.0); HEMATOCRIT. 25.4 % (36.0-48.0); HEMOGLOBIN. 8.9 g/dL (12.0-16.0); LYMPHOCYTES % 13.4 % (20.0-50.0); MEAN CORPUSCULAR HEMOGLOBIN 32.5 pg (28.0-32.0); MEAN CORPUSCULAR VOLUME 93.1 fL (81.0-99.0); MEAN PLATELET VOLUME 9.2 fl (7.4-10.4); MONOCYTES % 6.5 % (2.0-8.0); NEUTROPHILS % 79.9 % (40.0-76.0); PLATELET 161 x1000/uL (130-400); RED BLOOD CELL COUNT 2.73 mill/uL (4.2-5.4); RED CELL DISTRIBUTION WIDTH 15.5 % (11.6-14.6)
[2018-12-06 05:51] LABS: CHLORIDE 109 mEq/L (98-107)
[2018-12-06] MEDS: SUCRALFATE 1 G/10 ML UDC PO SCH ×4 (08:05→21:20)
[2018-12-06] MEDS: PANTOPRAZOLE SODIUM 40 MG/VIAL IV SCH (08:05)
[2018-12-06] MEDS: AMLODIPINE 10MG TABLET PO SCH (08:56)
[2018-12-06] MEDS: LISINOPRIL 20MG TABLET PO SCH (08:56)
[2018-12-06] MEDS: ENOXAPARIN 30MG/0.3ML SYR SUBCUT SCH (08:57)
[2018-12-06] MEDS: POTASSIUM CHLORIDE 20MEQ/PACKET PO SCH ×2 (09:00→12:28)
[2018-12-06] MEDS ORDERED: METOCLOPRAMIDE HCL 10MG/2ML VIAL IV SCH (12:00)
[2018-12-06 17:04] LABS: HEMATOCRIT 24.4 % (36.0-48.0); HEMOGLOBIN 8.4 g/dL (12.0-16.0)
[2018-12-06] MEDS: METOCLOPRAMIDE HCL 10MG/2ML VIAL IV SCH ×2 (18:02→21:21)
[2018-12-06] MEDS: LORAZEPAM 2MG/ML CPJ IV PRN (20:07)
[2018-12-06] MEDS: LEVOFLOXACIN 250MG PREMIX 50 ML IV SCH (23:54)
[2018-12-07] VITALS (19 sets, daily range): BP systolic 100–127; BP diastolic 58–86
[2018-12-07] MEDS: DEXT 5%/0.45% NACL 1000ML 1,000 ML IV SCH ×3 (01:58→23:51)
[2018-12-07] MEDS: MORPHINE SULFATE 2 MG/ML CPJ (NOT FOR IM USE) IV PRN ×5 (02:55→22:39)
[2018-12-07] MEDS: INSULIN LISPRO 100 UNITS/ML SUBCUT SCH ×4 (04:00→22:00)
[2018-12-07] MEDS ORDERED: POTASSIUM CHLORIDE INJ 40 MEQ in SODIUM CHLORIDE 0.45% 250 ML IV NR (04:00)
[2018-12-07] MEDS: BLOOD SUGAR DIAGNOSTIC STRIP TEST SCH ×4 (04:00→22:00)
[2018-12-07] MEDS: METRONIDAZOLE 500 MG PREMIX 100 ML IV SCH ×3 (05:45→22:10)
[2018-12-07] MEDS: SUCRALFATE 1 G/10 ML UDC PO SCH ×4 (07:53→21:40)
[2018-12-07] MEDS: METOCLOPRAMIDE HCL 10MG/2ML VIAL IV SCH ×4 (07:53→21:40)
[2018-12-07 08:10] LABS: BASOPHILS % 0.1 % (0.0-2.0); EOSINOPHILS % 0.4 % (0.0-5.0); HEMATOCRIT. 22.1 % (36.0-48.0); HEMOGLOBIN. 7.7 g/dL (12.0-16.0); LYMPHOCYTES % 21.9 % (20.0-50.0); MEAN CORPUSCULAR HEMOGLOBIN 32.6 pg (28.0-32.0); MEAN CORPUSCULAR VOLUME 94.4 fL (81.0-99.0); MEAN PLATELET VOLUME 9.1 fl (7.4-10.4); MONOCYTES % 10.2 % (2.0-8.0); NEUTROPHILS % 67.4 % (40.0-76.0); PLATELET 179 x1000/uL (130-400); RED BLOOD CELL COUNT 2.35 mill/uL (4.2-5.4); RED CELL DISTRIBUTION WIDTH 15.6 % (11.6-14.6)
[2018-12-07 08:18] LABS: CHLORIDE 115 mEq/L (98-107)
[2018-12-07] MEDS: AMLODIPINE 10MG TABLET PO SCH (08:54)
[2018-12-07] MEDS: LISINOPRIL 20MG TABLET PO SCH (08:55)
[2018-12-07] MEDS ORDERED: ENOXAPARIN 40MG/0.4ML SYR SUBCUT SCH (09:00)
[2018-12-07 15:44] LABS: HEMATOCRIT 23.5 % (36.0-48.0); HEMOGLOBIN 8.1 g/dL (12.0-16.0)
[2018-12-07] MEDS: ACETAMINOPHEN 325MG TABLET PO PRN (17:21)
[2018-12-07] MEDS: LORAZEPAM 2MG/ML CPJ IV PRN (17:22)
[2018-12-07 19:31] LABS: HEMATOCRIT 21.4 % (36.0-48.0); HEMOGLOBIN 7.3 g/dL (12.0-16.0)
[2018-12-07] MEDS: LEVOFLOXACIN 250MG PREMIX 50 ML IV SCH (23:51)
[2018-12-08] VITALS (11 sets, daily range): BP systolic 108–155; BP diastolic 50–89
[2018-12-08] MEDS: LORAZEPAM 2MG/ML CPJ IV PRN ×3 (01:13→20:19)
[2018-12-08] MEDS: BLOOD SUGAR DIAGNOSTIC STRIP TEST SCH ×4 (04:00→22:00)
[2018-12-08] MEDS: INSULIN LISPRO 100 UNITS/ML SUBCUT SCH ×4 (04:00→22:00)
[2018-12-08] MEDS: MORPHINE SULFATE 2 MG/ML CPJ (NOT FOR IM USE) IV PRN ×6 (04:37→22:32)
[2018-12-08 06:04] LABS: BASOPHILS % 0.1 % (0.0-2.0); EOSINOPHILS % 0.6 % (0.0-5.0); HEMATOCRIT. 21.2 % (36.0-48.0); HEMOGLOBIN. 7.2 g/dL (12.0-16.0); LYMPHOCYTES % 23.9 % (20.0-50.0); MEAN CORPUSCULAR HEMOGLOBIN 32.9 pg (28.0-32.0); MEAN PLATELET VOLUME 9.2 fl (7.4-10.4); MONOCYTES % 10.1 % (2.0-8.0); NEUTROPHILS % 65.3 % (40.0-76.0); PLATELET 195 x1000/uL (130-400); RED BLOOD CELL COUNT 2.19 mill/uL (4.2-5.4); RED CELL DISTRIBUTION WIDTH 15.7 % (11.6-14.6)
[2018-12-08] MEDS: SUCRALFATE 1 G/10 ML UDC PO SCH ×4 (06:17→20:19)
[2018-12-08] MEDS: DEXT 5%/0.45% NACL 1000ML 1,000 ML IV SCH ×2 (06:17→18:01)
[2018-12-08] MEDS: METOCLOPRAMIDE HCL 10MG/2ML VIAL IV SCH ×4 (06:17→20:19)
[2018-12-08] MEDS: METRONIDAZOLE 500 MG PREMIX 100 ML IV SCH ×3 (06:18→22:27)
[2018-12-08 07:21] LABS: CHLORIDE 113 mEq/L (98-107)
[2018-12-08] MEDS: ACETAMINOPHEN 325MG TABLET PO PRN ×2 (11:59→15:56)
[2018-12-08] MEDS: ONDANSETRON HCL 4MG/2ML INJ IV PRN (22:26)
[2018-12-08] MEDS: CLONIDINE 0.1MG TABLET PO PRN (22:35)
[2018-12-08] MEDS: HYDROMORPHONE HCL/PF 2MG/ML CPJ IV PRN (23:34)
[2018-12-08] MEDS: LEVOFLOXACIN 250MG PREMIX 50 ML IV SCH (23:38)
[2018-12-09] MEDS: DEXT 5%/0.45% NACL 1000ML 1,000 ML IV SCH ×2 (03:15→06:29)
[2018-12-09 04:00] VITALS: BP 173/91
[2018-12-09] MEDS: INSULIN LISPRO 100 UNITS/ML SUBCUT SCH ×3 (04:00→16:00)
[2018-12-09] MEDS: BLOOD SUGAR DIAGNOSTIC STRIP TEST SCH ×3 (04:57→16:00)
[2018-12-09] MEDS: METOCLOPRAMIDE HCL 10MG/2ML VIAL IV SCH ×3 (06:13→17:09)
[2018-12-09] MEDS: SUCRALFATE 1 G/10 ML UDC PO SCH ×3 (06:13→17:09)
[2018-12-09] MEDS: HYDROMORPHONE HCL/PF 2MG/ML CPJ IV PRN ×3 (06:17→14:05)
[2018-12-09] MEDS: CLONIDINE 0.1MG TABLET PO PRN (06:27)
[2018-12-09 06:52] LABS: CHLORIDE 106 mEq/L (98-107)
[2018-12-09 06:54] LABS: BASOPHILS % 0.1 % (0.0-2.0); EOSINOPHILS % 0.5 % (0.0-5.0); HEMATOCRIT. 26.3 % (36.0-48.0); HEMOGLOBIN. 8.9 g/dL (12.0-16.0); LYMPHOCYTES % 18.1 % (20.0-50.0); MEAN CORPUSCULAR HEMOGLOBIN 31.3 pg (28.0-32.0); MEAN CORPUSCULAR VOLUME 92.4 fL (81.0-99.0); MEAN PLATELET VOLUME 9.1 fl (7.4-10.4); MONOCYTES % 11.8 % (2.0-8.0); NEUTROPHILS % 69.5 % (40.0-76.0); PLATELET 216 x1000/uL (130-400); RED BLOOD CELL COUNT 2.85 mill/uL (4.2-5.4); RED CELL DISTRIBUTION WIDTH 17.4 % (11.6-14.6)
[2018-12-09 08:00] VITALS: BP 125/76
[2018-12-09] MEDS ORDERED: OMEPRAZOLE 20MG CAPSULE EXTENDED RELEASE PO SCH (11:15)
[2018-12-09] MEDS ORDERED: POTASSIUM CHLORIDE 20MEQ TABLET SR PO NR (11:45)
[2018-12-09 12:00] VITALS: BP 123/73
[2018-12-09] MEDS: ACETAMINOPHEN 325MG TABLET PO PRN (15:59)
[2018-12-09 16:00] VITALS: BP 130/79
[2018-12-09] MEDS: MORPHINE SULFATE 2 MG/ML CPJ (NOT FOR IM USE) IV PRN (17:09)
[2018-12-09 18:30] VITALS: BP 130/79
== END 2018-12-09 19:10 | disposition home or self-care (01) | DRG 326 ==
LOC: ER 08:15 → 6EST 14:29 → 3WST 12-04 16:15 → CVICU 12-05 09:38 → 8WST 12-07 13:12
PROVIDERS: ADMIT Internal Medicine; ATTEND Internal Medicine
PROC: 0D968ZZ Drainage of Stomach, Via Natural or Artificial Opening Endoscopic (ICD-10-PCS; 2018-12-04)
PROC: 30233N1 Transfusion of Nonautologous Red Blood Cells into Peripheral Vein, Percutaneous Approach (ICD-10-PCS; 2018-12-04)
PROC: 02HV33Z Insertion of Infusion Device into Superior Vena Cava, Percutaneous Approach (ICD-10-PCS; principal; 2018-12-05)
PROC: B548ZZA Ultrasonography of Superior Vena Cava, Guidance (ICD-10-PCS; 2018-12-05)
DX: K28.4 Chronic or unspecified gastrojejunal ulcer with hemorrhage (principal); E43 Unspecified severe protein-calorie malnutrition; K56.609 Unspecified intestinal obstruction, unspecified as to partial versus complete obstruction; Z68.1 Body mass index [BMI] 19.9 or less, adult; R64 Cachexia; E86.0 Dehydration; E87.6 Hypokalemia; K81.9 Cholecystitis, unspecified; G89.29 Other chronic pain; I10 Essential (primary) hypertension; D53.9 Nutritional anemia, unspecified; K44.9 Diaphragmatic hernia without obstruction or gangrene; F14.10 Cocaine abuse, uncomplicated; E11.649 Type 2 diabetes mellitus with hypoglycemia without coma; F13.10 Sedative, hypnotic or anxiolytic abuse, uncomplicated; F17.210 Nicotine dependence, cigarettes, uncomplicated; K22.11 Ulcer of esophagus with bleeding; Z90.3 Acquired absence of stomach [part of]; Z79.899 Other long term (current) drug therapy; Z87.11 Personal history of peptic ulcer disease
CPT/HCPCS: 36415; 71045; 74018; 74177; 74250; 76705; 76937; 80048; 80061; 80305; 80320; 82728; 82962; 83540; 83550; 84132; 85014; 85018; 86850; 86900; 86920; 93970; 96374; 96375; 99285; C1725; C9113; J0696; J1170; J1650; J1956; J2060; J2250; J2270; J2405; J2765; J3010; J3480; J3490; J7030; J7040; J7050; J7060; P9016; Q9963; Q9967; G0480

== ENCOUNTER 2018-12-20 19:32 | Inpatient (IN) | payer MEDICARE, MEDICAID ==
[~2018-12-20] VITALS: Ht 154.9 cm; Wt 55.3 kg
[2018-12-20] MEDS ORDERED: MAGNESIUM/ALUMINUM HYDROXIDE/SIMETHICONE 30ML UDC PO STA (20:03)
[2018-12-20] MEDS ORDERED: KETOROLAC 30MG/ML VIAL IV STA (20:03)
[2018-12-20] MEDS ORDERED: ONDANSETRON HCL 4MG/2ML INJ IV STA (20:03)
[2018-12-20] MEDS ORDERED: SODIUM CHLORIDE 0.9% 1,000 ML IV ONE (20:03)
[2018-12-20 20:41] LABS: BASOPHILS % 0.1 % (0.0-2.0); EOSINOPHILS % 0.2 % (0.0-5.0); HEMATOCRIT. 30.5 % (36.0-48.0); LYMPHOCYTES % 19.8 % (20.0-50.0); MEAN CORPUSCULAR HEMOGLOBIN 30.7 pg (28.0-32.0); MEAN CORPUSCULAR VOLUME 93.4 fL (81.0-99.0); MEAN PLATELET VOLUME 8.2 fl (7.4-10.4); MONOCYTES % 8.8 % (2.0-8.0); NEUTROPHILS % 71.1 % (40.0-76.0); PLATELET 447 x1000/uL (130-400); RED BLOOD CELL COUNT 3.27 mill/uL (4.2-5.4); RED CELL DISTRIBUTION WIDTH 18.1 % (11.6-14.6)
[2018-12-20 20:47] LABS: CHLORIDE 115 mEq/L (98-107); INR 1.2
[2018-12-20] MEDS ORDERED: KCL 20MEQ/100ML PREMIX 100 ML IV ONE (21:30)
[2018-12-20] MEDS ORDERED: POTASSIUM CHLORIDE 20MEQ TABLET SR PO ONE (21:30)
[2018-12-21 01:30] VITALS: BP 142/85
[2018-12-21] MEDS ORDERED: ACETAMINOPHEN 650MG/20.3ML UDC PO PRN (03:00)
[2018-12-21] MEDS ORDERED: CLONIDINE 0.1MG TABLET PO PRN (03:15)
[2018-12-21] MEDS ORDERED: NON FORMULARY PATIENT HOME MED XX SCH (03:30)
[2018-12-21] MEDS: MORPHINE SULFATE 2 MG/ML CPJ (NOT FOR IM USE) IV PRN ×4 (04:07→17:20)
[2018-12-21] MEDS: SODIUM CHL 0.9% + KCL 20MEQ/L 1,000 ML IV SCH ×2 (06:08→19:33)
[2018-12-21] MEDS: PANTOPRAZOLE 40MG DR TABLET PO SCH ×2 (07:54→17:14)
[2018-12-21 08:00] VITALS: BP 181/97
[2018-12-21] MEDS: GEMFIBROZIL 600MG TABLET PO SCH ×2 (08:50→17:59)
[2018-12-21] MEDS ORDERED: ENOXAPARIN 30MG/0.3ML SYR SUBCUT SCH (09:00)
[2018-12-21] MEDS: AMLODIPINE 10MG TABLET PO SCH (09:50)
[2018-12-21] MEDS: ATENOLOL 25MG TABLET PO SCH (09:50)
[2018-12-21] MEDS: AZITHROMYCIN 500 MG TABLET PO SCH (11:52)
[2018-12-21 12:00] VITALS: BP 148/76
[2018-12-21 12:41] LABS: CHLORIDE 114 mEq/L (98-107)
[2018-12-21] MEDS: CEFTRIAXONE 1 G PREMIX 50 ML IV SCH (12:57)
[2018-12-21 16:00] VITALS: BP 143/86
[2018-12-21] MEDS ORDERED: POTASSIUM CHLORIDE 20MEQ TABLET SR PO NR (16:00)
[2018-12-21 20:00] VITALS: BP 142/81
[2018-12-22] VITALS: BP 156/87
[2018-12-22] MEDS: SODIUM CHL 0.9% + KCL 20MEQ/L 1,000 ML IV SCH ×3 (01:00→21:00)
[2018-12-22] MEDS: MORPHINE SULFATE 2 MG/ML CPJ (NOT FOR IM USE) IV PRN ×5 (02:42→22:20)
[2018-12-22 04:00] VITALS: BP 151/90
[2018-12-22 06:50] LABS: CHLORIDE 117 mEq/L (98-107)
[2018-12-22 06:59] LABS: BASOPHILS % 0.2 % (0.0-2.0); EOSINOPHILS % 0.2 % (0.0-5.0); HEMATOCRIT. 25.7 % (36.0-48.0); HEMOGLOBIN. 8.8 g/dL (12.0-16.0); LYMPHOCYTES % 32.1 % (20.0-50.0); MEAN CORPUSCULAR HEMOGLOBIN 30.8 pg (28.0-32.0); MEAN CORPUSCULAR VOLUME 90.4 fL (81.0-99.0); MEAN PLATELET VOLUME 8.8 fl (7.4-10.4); MONOCYTES % 8.2 % (2.0-8.0); NEUTROPHILS % 59.3 % (40.0-76.0); PLATELET 379 x1000/uL (130-400); RED BLOOD CELL COUNT 2.84 mill/uL (4.2-5.4); RED CELL DISTRIBUTION WIDTH 17.4 % (11.6-14.6)
[2018-12-22 08:03] VITALS: BP 136/76
[2018-12-22] MEDS ORDERED: POTASSIUM CHLORIDE INJ 40 MEQ in DEXT 5% WATER 250 ML IV NR (09:00)
[2018-12-22] MEDS: GEMFIBROZIL 600MG TABLET PO SCH ×2 (09:43→17:57)
[2018-12-22] MEDS: AMLODIPINE 10MG TABLET PO SCH (09:43)
[2018-12-22] MEDS: AZITHROMYCIN 500 MG TABLET PO SCH (09:43)
[2018-12-22] MEDS: PANTOPRAZOLE 40MG DR TABLET PO SCH ×2 (09:44→17:57)
[2018-12-22] MEDS: ATENOLOL 25MG TABLET PO SCH (09:44)
[2018-12-22 11:33] VITALS: BP 150/90
[2018-12-22] MEDS: CEFTRIAXONE 1 G PREMIX 50 ML IV SCH (12:39)
[2018-12-22 15:46] VITALS: BP 120/67
[2018-12-22] MEDS: ZINC OXIDE 20% OINT 30GM TOP SCH (18:04)
[2018-12-23] VITALS: BP 124/65
[2018-12-23] MEDS: MORPHINE SULFATE 2 MG/ML CPJ (NOT FOR IM USE) IV PRN ×5 (02:56→22:35)
[2018-12-23] MEDS: SODIUM CHL 0.9% + KCL 20MEQ/L 1,000 ML IV SCH ×2 (02:56→13:31)
[2018-12-23 04:02] LABS: *AMPHETAMINES SCREEN URINE NEGATIVE (NEGATIVE); *BARBITURATES SCREEN URINE NEGATIVE (NEGATIVE); *BENZODIAZEPINES SCREEN URINE PRESUMTIVE POSITIVE (NEGATIVE); *COCAINE SCREEN URINE NEGATIVE (NEGATIVE)
[2018-12-23 04:03] LABS: CANNABINOID URINE SCREEN NEGATIVE (NEGATIVE); METHADONE URINE SCREEN NEGATIVE (NEGATIVE); OPIATES URINE SCREEN PRESUMTIVE POSITIVE (NEGATIVE); PHENCYCLIDINE URINE SCREEN NEGATIVE (NEGATIVE)
[2018-12-23 06:00] VITALS: BP 127/87
[2018-12-23 06:30] LABS: BASOPHILS % 0.1 % (0.0-2.0); EOSINOPHILS % 0.3 % (0.0-5.0); HEMATOCRIT. 25.1 % (36.0-48.0); HEMOGLOBIN. 8.5 g/dL (12.0-16.0); LYMPHOCYTES % 29.9 % (20.0-50.0); MEAN CORPUSCULAR HEMOGLOBIN 30.6 pg (28.0-32.0); MEAN CORPUSCULAR VOLUME 90.6 fL (81.0-99.0); MEAN PLATELET VOLUME 8.7 fl (7.4-10.4); MONOCYTES % 6.8 % (2.0-8.0); NEUTROPHILS % 62.9 % (40.0-76.0); PLATELET 305 x1000/uL (130-400); RED BLOOD CELL COUNT 2.77 mill/uL (4.2-5.4); RED CELL DISTRIBUTION WIDTH 17.9 % (11.6-14.6)
[2018-12-23 06:57] LABS: CHLORIDE 118 mEq/L (98-107)
[2018-12-23] MEDS: AZITHROMYCIN 500 MG TABLET PO SCH (07:57)
[2018-12-23] MEDS: ZINC OXIDE 20% OINT 30GM TOP SCH ×2 (07:58→18:15)
[2018-12-23] MEDS: PANTOPRAZOLE 40MG DR TABLET PO SCH ×2 (07:58→18:21)
[2018-12-23] MEDS: ATENOLOL 25MG TABLET PO SCH (07:58)
[2018-12-23] MEDS: AMLODIPINE 10MG TABLET PO SCH (07:58)
[2018-12-23 08:00] VITALS: BP 124/77
[2018-12-23 12:00] VITALS: BP 128/78
[2018-12-23] MEDS: GEMFIBROZIL 600MG TABLET PO SCH ×2 (13:30→18:14)
[2018-12-23] MEDS ORDERED: POTASSIUM CHLORIDE 20MEQ TABLET SR PO NR (13:30)
[2018-12-23] MEDS: CEFTRIAXONE 1 G PREMIX 50 ML IV SCH (13:31)
[2018-12-23 16:00] VITALS: BP 130/72
[2018-12-23] MEDS: SODIUM CHL 0.45% + KCL 20MEQ/L 1,000 ML IV SCH (18:14)
[2018-12-23 20:00] VITALS: BP 123/91
[2018-12-23] MEDS: ONDANSETRON HCL 4MG/2ML INJ IV PRN (22:34)
[2018-12-24] VITALS: BP 138/76
[2018-12-24] MEDS: SODIUM CHL 0.45% + KCL 20MEQ/L 1,000 ML IV SCH ×2 (02:45→13:02)
[2018-12-24] MEDS: MORPHINE SULFATE 2 MG/ML CPJ (NOT FOR IM USE) IV PRN ×5 (02:45→21:10)
[2018-12-24 04:00] VITALS: BP 176/67
[2018-12-24 06:10] LABS: BASOPHILS % 0.2 % (0.0-2.0); CHLORIDE 113 mEq/L (98-107); EOSINOPHILS % 0.3 % (0.0-5.0); HEMATOCRIT. 26.3 % (36.0-48.0); HEMOGLOBIN. 8.8 g/dL (12.0-16.0); LYMPHOCYTES % 24.3 % (20.0-50.0); MEAN CORPUSCULAR HEMOGLOBIN 30.4 pg (28.0-32.0); MEAN CORPUSCULAR VOLUME 91.3 fL (81.0-99.0); MEAN PLATELET VOLUME 9.3 fl (7.4-10.4); NEUTROPHILS % 70.2 % (40.0-76.0); PLATELET 253 x1000/uL (130-400); RED BLOOD CELL COUNT 2.88 mill/uL (4.2-5.4); RED CELL DISTRIBUTION WIDTH 17.9 % (11.6-14.6)
[2018-12-24] MEDS: PANTOPRAZOLE 40MG DR TABLET PO SCH ×2 (06:27→18:01)
[2018-12-24 08:00] VITALS: BP 112/85
[2018-12-24] MEDS: ATENOLOL 25MG TABLET PO SCH (08:36)
[2018-12-24] MEDS: AMLODIPINE 10MG TABLET PO SCH (08:36)
[2018-12-24] MEDS: AZITHROMYCIN 500 MG TABLET PO SCH (08:36)
[2018-12-24] MEDS: GEMFIBROZIL 600MG TABLET PO SCH ×2 (08:37→18:01)
[2018-12-24] MEDS: ZINC OXIDE 20% OINT 30GM TOP SCH ×2 (09:00→18:02)
[2018-12-24 11:39] VITALS: BP 129/70
[2018-12-24] MEDS ORDERED: MAGNESIUM 2 G PREMIX 50 ML IV SCH (12:00)
[2018-12-24] MEDS: SUCRALFATE 1 G/10 ML UDC PO SCH ×3 (12:33→21:10)
[2018-12-24] MEDS: CEFTRIAXONE 1 G PREMIX 50 ML IV SCH (14:22)
[2018-12-24 15:53] VITALS: BP 125/62
[2018-12-24 20:00] VITALS: BP 121/67
[2018-12-25] VITALS: BP 130/69
[2018-12-25] MEDS: MORPHINE SULFATE 2 MG/ML CPJ (NOT FOR IM USE) IV PRN ×6 (01:16→22:23)
[2018-12-25] MEDS: SODIUM CHL 0.45% + KCL 20MEQ/L 1,000 ML IV SCH ×3 (02:48→19:00)
[2018-12-25 04:00] VITALS: BP 136/64
[2018-12-25 08:00] VITALS: BP 120/65
[2018-12-25] MEDS: PANTOPRAZOLE 40MG DR TABLET PO SCH ×2 (08:43→18:15)
[2018-12-25] MEDS: AMLODIPINE 10MG TABLET PO SCH (08:44)
[2018-12-25] MEDS: ATENOLOL 25MG TABLET PO SCH (08:44)
[2018-12-25] MEDS: GEMFIBROZIL 600MG TABLET PO SCH (08:44)
[2018-12-25] MEDS: AZITHROMYCIN 500 MG TABLET PO SCH (08:45)
[2018-12-25] MEDS: SUCRALFATE 1 G/10 ML UDC PO SCH ×4 (09:08→22:21)
[2018-12-25] MEDS: ZINC OXIDE 20% OINT 30GM TOP SCH ×2 (09:08→18:16)
[2018-12-25 12:49] VITALS: BP 125/68
[2018-12-25 13:02] LABS: CHLORIDE 114 mEq/L (98-107)
[2018-12-25] MEDS: CEFTRIAXONE 1 G PREMIX 50 ML IV SCH (13:50)
[2018-12-25 16:00] VITALS: BP 108/65
[2018-12-25 16:09] LABS: BASOPHILS % 0.2 % (0.0-2.0); EOSINOPHILS % 0.3 % (0.0-5.0); HEMATOCRIT. 28.1 % (36.0-48.0); HEMOGLOBIN. 9.1 g/dL (12.0-16.0); LYMPHOCYTES % 38.1 % (20.0-50.0); MEAN CORPUSCULAR VOLUME 92.5 fL (81.0-99.0); MEAN PLATELET VOLUME 9.7 fl (7.4-10.4); MONOCYTES % 8.2 % (2.0-8.0); NEUTROPHILS % 53.2 % (40.0-76.0); PLATELET 241 x1000/uL (130-400); RED BLOOD CELL COUNT 3.04 mill/uL (4.2-5.4); RED CELL DISTRIBUTION WIDTH 18.5 % (11.6-14.6)
[2018-12-25] MEDS ORDERED: POTASSIUM CHLORIDE 20MEQ TABLET SR PO NR (17:15)
[2018-12-25 20:00] VITALS: BP 121/75
[2018-12-26] VITALS: BP 122/68
[2018-12-26 04:00] VITALS: BP 127/65
[2018-12-26] MEDS: MORPHINE SULFATE 2 MG/ML CPJ (NOT FOR IM USE) IV PRN (05:11)
[2018-12-26 08:00] VITALS: BP 123/67
[2018-12-26] MEDS: AZITHROMYCIN 500 MG TABLET PO SCH (09:38)
[2018-12-26] MEDS: PANTOPRAZOLE 40MG DR TABLET PO SCH ×2 (09:38→18:07)
[2018-12-26] MEDS: SUCRALFATE 1 G/10 ML UDC PO SCH ×4 (09:38→21:42)
[2018-12-26] MEDS: ATENOLOL 25MG TABLET PO SCH (09:39)
[2018-12-26] MEDS: AMLODIPINE 10MG TABLET PO SCH (09:40)
[2018-12-26] MEDS: MORPHINE SULFATE 4 MG/ML CPJ (NOT FOR IM USE) IV PRN ×4 (09:58→21:43)
[2018-12-26] MEDS ORDERED: LIDOCAINE HCL 1% 20ML VIAL (Pyxis) INJ ONE (11:19)
[2018-12-26] MEDS ORDERED: KCL 20MEQ/100ML PREMIX 100 ML IV NR (11:30)
[2018-12-26] MEDS: CEFTRIAXONE 1 G PREMIX 50 ML IV SCH (13:19)
[2018-12-26] MEDS: ZINC OXIDE 20% OINT 30GM TOP SCH ×2 (15:17→18:07)
[2018-12-26] MEDS: LOPERAMIDE HCL 2MG CAPSULE PO PRN (15:23)
[2018-12-26 16:00] VITALS: BP 118/74
[2018-12-26] MEDS: SODIUM CHL 0.45% + KCL 20MEQ/L 1,000 ML IV SCH ×2 (18:08→18:10)
[2018-12-26 18:45] LABS: CHLORIDE 118 mEq/L (98-107)
[2018-12-26 20:00] VITALS: BP 127/66
[2018-12-27] VITALS: BP 155/69
[2018-12-27] MEDS: LOPERAMIDE HCL 2MG CAPSULE PO PRN ×2 (00:31→09:09)
[2018-12-27] MEDS: MORPHINE SULFATE 4 MG/ML CPJ (NOT FOR IM USE) IV PRN ×5 (01:53→20:25)
[2018-12-27] MEDS: SODIUM CHL 0.45% + KCL 20MEQ/L 1,000 ML IV SCH ×3 (01:57→22:07)
[2018-12-27 04:00] VITALS: BP 132/72
[2018-12-27 08:00] VITALS: BP 146/76
[2018-12-27] MEDS: SUCRALFATE 1 G/10 ML UDC PO SCH ×4 (09:07→22:07)
[2018-12-27] MEDS: PANTOPRAZOLE 40MG DR TABLET PO SCH ×2 (09:07→18:35)
[2018-12-27] MEDS: LACTOBACILLUS GG CAPSULE PO SCH (09:08)
[2018-12-27] MEDS: AMLODIPINE 10MG TABLET PO SCH (09:08)
[2018-12-27] MEDS: AZITHROMYCIN 500 MG TABLET PO SCH (09:09)
[2018-12-27] MEDS: ATENOLOL 25MG TABLET PO SCH (09:09)
[2018-12-27] MEDS: ZINC OXIDE 20% OINT 30GM TOP SCH ×2 (09:11→19:06)
[2018-12-27 12:00] VITALS: BP 130/64
[2018-12-27] MEDS: CEFTRIAXONE 1 G PREMIX 50 ML IV SCH (12:26)
[2018-12-27 16:00] VITALS: BP 119/77
[2018-12-27] MEDS: DIPHENOXYLATE/ATROPINE 2.5/0.025MG TABLET PO PRN ×2 (16:02→19:04)
[2018-12-27 20:00] VITALS: BP 135/78
[2018-12-28] VITALS: BP 128/76
[2018-12-28] MEDS: DIPHENOXYLATE/ATROPINE 2.5/0.025MG TABLET PO PRN ×6 (01:04→21:42)
[2018-12-28] MEDS: MORPHINE SULFATE 4 MG/ML CPJ (NOT FOR IM USE) IV PRN ×6 (01:05→21:42)
[2018-12-28 04:00] VITALS: BP 140/70
[2018-12-28 08:06] LABS: BASOPHILS % 0.3 % (0.0-2.0); EOSINOPHILS % 0.3 % (0.0-5.0); HEMATOCRIT. 23.3 % (36.0-48.0); HEMOGLOBIN. 7.6 g/dL (12.0-16.0); MEAN CORPUSCULAR HEMOGLOBIN 29.6 pg (28.0-32.0); MEAN CORPUSCULAR VOLUME 91.3 fL (81.0-99.0); MONOCYTES % 7.4 % (2.0-8.0); PLATELET 207 x1000/uL (130-400); RED BLOOD CELL COUNT 2.55 mill/uL (4.2-5.4); RED CELL DISTRIBUTION WIDTH 18.4 % (11.6-14.6)
[2018-12-28 08:12] LABS: CHLORIDE 120 mEq/L (98-107)
[2018-12-28 08:15] VITALS: BP 154/76
[2018-12-28] MEDS: AZITHROMYCIN 500 MG TABLET PO SCH (08:50)
[2018-12-28] MEDS: AMLODIPINE 10MG TABLET PO SCH (08:50)
[2018-12-28] MEDS: ATENOLOL 25MG TABLET PO SCH (08:51)
[2018-12-28] MEDS: PANTOPRAZOLE 40MG DR TABLET PO SCH ×2 (08:51→16:49)
[2018-12-28] MEDS: LACTOBACILLUS GG CAPSULE PO SCH (08:51)
[2018-12-28] MEDS: SUCRALFATE 1 G/10 ML UDC PO SCH ×4 (08:52→21:42)
[2018-12-28] MEDS: ZINC OXIDE 20% OINT 30GM TOP SCH ×2 (08:53→18:09)
[2018-12-28 12:00] VITALS: BP 154/68
[2018-12-28] MEDS ORDERED: POTASSIUM CHLORIDE INJ 40 MEQ in DEXT 5% WATER 250 ML IV NR (13:00)
[2018-12-28] MEDS: CEFTRIAXONE 1 G PREMIX 50 ML IV SCH (13:01)
[2018-12-28 15:25] VITALS: BP 123/61
[2018-12-29] VITALS: BP 130/76
[2018-12-29] MEDS: DIPHENOXYLATE/ATROPINE 2.5/0.025MG TABLET PO PRN ×2 (03:28→09:30)
[2018-12-29] MEDS: MORPHINE SULFATE 4 MG/ML CPJ (NOT FOR IM USE) IV PRN ×3 (03:29→15:10)
[2018-12-29] MEDS: SODIUM CHL 0.45% + KCL 20MEQ/L 1,000 ML IV SCH ×4 (03:30→10:17)
[2018-12-29 04:00] VITALS: BP 152/64
[2018-12-29] MEDS: OXYCODONE HCL/ACETAMINOPHEN 5/325MG TABLET PO PRN ×3 (05:59→20:18)
[2018-12-29] MEDS: SUCRALFATE 1 G/10 ML UDC PO SCH ×4 (06:33→20:18)
[2018-12-29] MEDS: PANTOPRAZOLE 40MG DR TABLET PO SCH ×2 (06:33→17:51)
[2018-12-29 07:28] LABS: CHLORIDE 121 mEq/L (98-107)
[2018-12-29 07:34] LABS: BASOPHILS % 0.4 % (0.0-2.0); EOSINOPHILS % 0.3 % (0.0-5.0); HEMOGLOBIN. 7.9 g/dL (12.0-16.0); LYMPHOCYTES % 46.5 % (20.0-50.0); MEAN CORPUSCULAR HEMOGLOBIN 30.3 pg (28.0-32.0); MEAN CORPUSCULAR VOLUME 91.5 fL (81.0-99.0); MEAN PLATELET VOLUME 9.5 fl (7.4-10.4); MONOCYTES % 6.5 % (2.0-8.0); NEUTROPHILS % 46.3 % (40.0-76.0); PLATELET 252 x1000/uL (130-400); RED BLOOD CELL COUNT 2.62 mill/uL (4.2-5.4); RED CELL DISTRIBUTION WIDTH 18.5 % (11.6-14.6)
[2018-12-29 08:00] VITALS: BP 136/61
[2018-12-29] MEDS: LACTOBACILLUS GG CAPSULE PO SCH (09:29)
[2018-12-29] MEDS: AMLODIPINE 10MG TABLET PO SCH (09:30)
[2018-12-29] MEDS: ATENOLOL 25MG TABLET PO SCH (09:30)
[2018-12-29] MEDS: ZINC OXIDE 20% OINT 30GM TOP SCH ×2 (10:02→17:51)
[2018-12-29 12:00] VITALS: BP 158/75
[2018-12-29 16:00] VITALS: BP 127/64
[2018-12-29] MEDS: DEXT 5%/0.45% NACL KCL 20MEQ/L 1,000 ML IV SCH (19:23)
[2018-12-29 20:00] VITALS: BP 170/82
[2018-12-29] MEDS ORDERED: DIPHENOXYLATE/ATROPINE 2.5/0.025MG TABLET PO PRN (21:00)
[2018-12-30] VITALS: BP 140/78
[2018-12-30] MEDS: MORPHINE SULFATE 4 MG/ML CPJ (NOT FOR IM USE) IV PRN ×5 (01:59→20:21)
[2018-12-30 04:00] VITALS: BP 146/67
[2018-12-30 04:16] LABS: OVA & PARASITE EXAM Final report (.)
[2018-12-30] MEDS: DEXT 5%/0.45% NACL KCL 20MEQ/L 1,000 ML IV SCH ×2 (06:12→15:43)
[2018-12-30] MEDS: SUCRALFATE 1 G/10 ML UDC PO SCH ×4 (06:22→20:14)
[2018-12-30] MEDS: PANTOPRAZOLE 40MG DR TABLET PO SCH ×2 (06:22→17:28)
[2018-12-30 07:34] LABS: CHLORIDE 123 mEq/L (98-107)
[2018-12-30 07:40] LABS: BASOPHILS % 0.4 % (0.0-2.0); EOSINOPHILS % 0.1 % (0.0-5.0); HEMATOCRIT. 22.2 % (36.0-48.0); HEMOGLOBIN. 7.3 g/dL (12.0-16.0); LYMPHOCYTES % 43.2 % (20.0-50.0); MEAN CORPUSCULAR VOLUME 91.9 fL (81.0-99.0); MEAN PLATELET VOLUME 9.7 fl (7.4-10.4); NEUTROPHILS % 50.3 % (40.0-76.0); PLATELET 222 x1000/uL (130-400); RED BLOOD CELL COUNT 2.42 mill/uL (4.2-5.4); RED CELL DISTRIBUTION WIDTH 18.8 % (11.6-14.6)
[2018-12-30 08:00] VITALS: BP 148/67
[2018-12-30] MEDS: ATENOLOL 25MG TABLET PO SCH (09:00)
[2018-12-30] MEDS: LACTOBACILLUS GG CAPSULE PO SCH (09:39)
[2018-12-30] MEDS: AMLODIPINE 10MG TABLET PO SCH (09:39)
[2018-12-30] MEDS: ZINC OXIDE 20% OINT 30GM TOP SCH ×2 (09:41→17:29)
[2018-12-30 12:00] VITALS: BP 137/66
[2018-12-30] MEDS: DIPHENOXYLATE/ATROPINE 2.5/0.025MG TABLET PO PRN ×2 (14:17→22:38)
[2018-12-30] MEDS ORDERED: POTASSIUM CHLORIDE 20MEQ TABLET SR PO SCH (15:00)
[2018-12-30 16:00] VITALS: BP 140/62
[2018-12-30 20:00] VITALS: BP 160/66
[2018-12-30] MEDS: OXYCODONE HCL/ACETAMINOPHEN 5/325MG TABLET PO PRN (22:40)
[2018-12-31] VITALS: BP 162/72
[2018-12-31] MEDS: DEXT 5%/0.45% NACL KCL 20MEQ/L 1,000 ML IV SCH ×3 (00:19→21:38)
[2018-12-31] MEDS: MORPHINE SULFATE 4 MG/ML CPJ (NOT FOR IM USE) IV PRN ×5 (00:27→18:31)
[2018-12-31] MEDS: OXYCODONE HCL/ACETAMINOPHEN 5/325MG TABLET PO PRN ×4 (03:14→21:37)
[2018-12-31 04:00] VITALS: BP 164/82
[2018-12-31] MEDS: PANTOPRAZOLE 40MG DR TABLET PO SCH ×2 (06:24→17:28)
[2018-12-31] MEDS: SUCRALFATE 1 G/10 ML UDC PO SCH ×4 (06:24→21:36)
[2018-12-31 07:08] LABS: BASOPHILS % 0.6 % (0.0-2.0); EOSINOPHILS % 0.2 % (0.0-5.0); HEMATOCRIT. 22.2 % (36.0-48.0); HEMOGLOBIN. 7.2 g/dL (12.0-16.0); LYMPHOCYTES % 51.9 % (20.0-50.0); MEAN CORPUSCULAR HEMOGLOBIN 29.9 pg (28.0-32.0); MEAN CORPUSCULAR VOLUME 91.6 fL (81.0-99.0); MEAN PLATELET VOLUME 8.9 fl (7.4-10.4); MONOCYTES % 7.1 % (2.0-8.0); NEUTROPHILS % 40.2 % (40.0-76.0); PLATELET 204 x1000/uL (130-400); RED BLOOD CELL COUNT 2.42 mill/uL (4.2-5.4); RED CELL DISTRIBUTION WIDTH 18.6 % (11.6-14.6)
[2018-12-31 07:16] LABS: CHLORIDE 125 mEq/L (98-107)
[2018-12-31 08:00] VITALS: BP 159/71
[2018-12-31] MEDS: LACTOBACILLUS GG CAPSULE PO SCH (08:57)
[2018-12-31] MEDS: AMLODIPINE 10MG TABLET PO SCH (08:59)
[2018-12-31] MEDS: ATENOLOL 25MG TABLET PO SCH (08:59)
[2018-12-31] MEDS: ZINC OXIDE 20% OINT 30GM TOP SCH ×2 (09:01→17:28)
[2018-12-31] MEDS ORDERED: LOSARTAN POTASSIUM 50 MG TABLET PO SCH (10:45)
[2018-12-31] MEDS ORDERED: POTASSIUM CHLORIDE 20MEQ TABLET SR PO SCH (11:00)
[2018-12-31 12:00] VITALS: BP 138/89
[2018-12-31] MEDS: CLONIDINE 0.1MG TABLET PO SCH ×2 (14:09→21:37)
[2018-12-31 16:00] VITALS: BP 113/61
[2018-12-31] MEDS: DIPHENOXYLATE/ATROPINE 2.5/0.025MG TABLET PO PRN (17:28)
[2018-12-31 20:00] VITALS: BP 125/65
[2018-12-31] MEDS: AMLODIPINE 5MG TABLET PO SCH (21:38)
[2018-12-31] MEDS: LOSARTAN POTASSIUM 50 MG TABLET PO SCH (21:38)
[2019-01-01] VITALS (15 sets, daily range): BP systolic 119–151; BP diastolic 58–79
[2019-01-01] MEDS: DIPHENOXYLATE/ATROPINE 2.5/0.025MG TABLET PO PRN ×2 (02:01→21:24)
[2019-01-01] MEDS: MORPHINE SULFATE 2 MG/ML CPJ (NOT FOR IM USE) IV PRN ×6 (02:02→23:39)
[2019-01-01 06:10] LABS: BASOPHILS % 0.8 % (0.0-2.0); EOSINOPHILS % 0.1 % (0.0-5.0); LYMPHOCYTES % 43.3 % (20.0-50.0); MEAN CORPUSCULAR HEMOGLOBIN 30.1 pg (28.0-32.0); MEAN CORPUSCULAR VOLUME 92.2 fL (81.0-99.0); MEAN PLATELET VOLUME 9.5 fl (7.4-10.4); MONOCYTES % 6.1 % (2.0-8.0); NEUTROPHILS % 49.7 % (40.0-76.0); PLATELET 182 x1000/uL (130-400); RED BLOOD CELL COUNT 2.11 mill/uL (4.2-5.4); RED CELL DISTRIBUTION WIDTH 19.5 % (11.6-14.6)
[2019-01-01 06:11] LABS: CHLORIDE 124 mEq/L (98-107)
[2019-01-01 06:20] LABS: HEMOGLOBIN. 6.4 g/dL (12.0-16.0)
[2019-01-01 06:21] LABS: HEMATOCRIT. 19.4 % (36.0-48.0)
[2019-01-01 06:23] LABS: TOTAL IRON BINDING CAPACITY 68 ug/dL (250-450)
[2019-01-01] MEDS: PANTOPRAZOLE 40MG DR TABLET PO SCH ×2 (06:27→17:19)
[2019-01-01] MEDS: SUCRALFATE 1 G/10 ML UDC PO SCH ×4 (06:28→21:24)
[2019-01-01] MEDS: CLONIDINE 0.1MG TABLET PO SCH ×3 (06:28→21:23)
[2019-01-01] MEDS: DEXT 5%/0.45% NACL KCL 20MEQ/L 1,000 ML IV SCH ×2 (06:29→16:30)
[2019-01-01 07:20] LABS: VITAMIN B12 SERUM > 2000.0 pg/mL (211-911)
[2019-01-01] MEDS: LACTOBACILLUS GG CAPSULE PO SCH (08:20)
[2019-01-01] MEDS: FOLIC ACID 1MG TABLET PO SCH (08:20)
[2019-01-01] MEDS: LOSARTAN POTASSIUM 50 MG TABLET PO SCH ×2 (08:20→21:24)
[2019-01-01] MEDS: AMLODIPINE 5MG TABLET PO SCH ×2 (08:20→21:23)
[2019-01-01] MEDS: ZINC OXIDE 20% OINT 30GM TOP SCH ×2 (08:23→17:21)
[2019-01-01] MEDS: OXYCODONE HCL/ACETAMINOPHEN 5/325MG TABLET PO PRN ×3 (08:33→21:29)
[2019-01-01 09:15] LABS: SACCHAROMYCES CEREVISIAE IGG 71.8 Units (0.0-24.9); SACCHAROMYCES CEREVISIAE IGM 49.2 Units (0.0-24.9)
[2019-01-01 12:24] LABS: FERRITIN 613 ng/mL (10-291)
[2019-01-01 15:14] LABS: ANTI-MYELOPEROXIDASE AB < 9.0 U/mL (0.0-9.0); ANTI-PROTEINASE 3 ABS < 3.5 U/mL (0.0-3.5); ATYPICAL P-ANCA <1:20 titer (Neg:<1:20); ATYPICAL pANCA <1:20 titer (Neg:<1:20); CYTOPLASMIC C-ANCA <1:20 titer (Neg:<1:20); PERINUCLEAR P-ANCA <1:20 titer (Neg:<1:20)
[2019-01-01] MEDS ORDERED: DIATR MEGLU/DIATRIZOATE SOLN 30ML PO SCH (17:30)
[2019-01-01 22:03] LABS: HEMOGLOBIN 10.8 g/dL (12.0-16.0)
[2019-01-02] VITALS: BP 144/74
[2019-01-02] MEDS: DEXT 5%/0.45% NACL KCL 20MEQ/L 1,000 ML IV SCH ×2 (02:54→19:07)
[2019-01-02 04:00] VITALS: BP 149/69
[2019-01-02] MEDS: CLONIDINE 0.1MG TABLET PO SCH ×3 (06:00→22:26)
[2019-01-02] MEDS ORDERED: DIATR MEGLU/DIATRIZOATE SOLN 30ML PO SCH (06:00)
[2019-01-02] MEDS: MORPHINE SULFATE 2 MG/ML CPJ (NOT FOR IM USE) IV PRN ×4 (06:08→20:46)
[2019-01-02] MEDS: SUCRALFATE 1 G/10 ML UDC PO SCH ×4 (06:29→20:44)
[2019-01-02] MEDS: PANTOPRAZOLE 40MG DR TABLET PO SCH ×2 (06:30→17:40)
[2019-01-02 08:00] VITALS: BP 178/75
[2019-01-02 09:22] LABS: BASOPHILS % 0.4 % (0.0-2.0); EOSINOPHILS % 0.1 % (0.0-5.0); HEMATOCRIT. 32.1 % (36.0-48.0); HEMOGLOBIN. 10.9 g/dL (12.0-16.0); LYMPHOCYTES % 44.6 % (20.0-50.0); MEAN CORPUSCULAR HEMOGLOBIN 29.9 pg (28.0-32.0); MEAN CORPUSCULAR VOLUME 88.2 fL (81.0-99.0); MEAN PLATELET VOLUME 9.4 fl (7.4-10.4); MONOCYTES % 8.4 % (2.0-8.0); NEUTROPHILS % 46.5 % (40.0-76.0); PLATELET 188 x1000/uL (130-400); RED BLOOD CELL COUNT 3.63 mill/uL (4.2-5.4); RED CELL DISTRIBUTION WIDTH 16.7 % (11.6-14.6)
[2019-01-02] MEDS ORDERED: IOHEXOL-300 100 ML BOTTLE ONE (09:35)
[2019-01-02 09:42] LABS: CHLORIDE 118 mEq/L (98-107)
[2019-01-02] MEDS: LACTOBACILLUS GG CAPSULE PO SCH (10:13)
[2019-01-02] MEDS: LOSARTAN POTASSIUM 50 MG TABLET PO SCH ×2 (10:13→20:45)
[2019-01-02] MEDS: ZINC OXIDE 20% OINT 30GM TOP SCH ×2 (10:14→17:41)
[2019-01-02] MEDS: AMLODIPINE 5MG TABLET PO SCH ×2 (10:14→20:45)
[2019-01-02] MEDS: FOLIC ACID 1MG TABLET PO SCH (10:14)
[2019-01-02 12:00] VITALS: BP 169/88
[2019-01-02] MEDS: HYDRALAZINE HCL 50MG TABLET PO SCH ×2 (14:00→22:27)
[2019-01-02] MEDS: ONDANSETRON HCL 4MG/2ML INJ IV PRN (15:03)
[2019-01-02 20:00] VITALS: BP 139/76
[2019-01-02] MEDS: DIPHENOXYLATE/ATROPINE 2.5/0.025MG TABLET PO PRN (22:26)
[2019-01-03] VITALS: BP 99/57
[2019-01-03 04:00] VITALS: BP 124/66
[2019-01-03] MEDS: ONDANSETRON HCL 4MG/2ML INJ IV PRN (04:28)
[2019-01-03] MEDS: HYDRALAZINE HCL 50MG TABLET PO SCH ×2 (06:34→21:38)
[2019-01-03] MEDS: CLONIDINE 0.1MG TABLET PO SCH ×2 (06:35→21:27)
[2019-01-03] MEDS: PANTOPRAZOLE 40MG DR TABLET PO SCH ×2 (06:35→16:49)
[2019-01-03] MEDS: SUCRALFATE 1 G/10 ML UDC PO SCH ×4 (06:35→21:26)
[2019-01-03 06:48] LABS: BASOPHILS % 0.5 % (0.0-2.0); EOSINOPHILS % 0.2 % (0.0-5.0); HEMOGLOBIN. 11.6 g/dL (12.0-16.0); LYMPHOCYTES % 50.7 % (20.0-50.0); MEAN CORPUSCULAR HEMOGLOBIN 29.9 pg (28.0-32.0); MEAN PLATELET VOLUME 9.1 fl (7.4-10.4); MONOCYTES % 9.6 % (2.0-8.0); PLATELET 182 x1000/uL (130-400); RED BLOOD CELL COUNT 3.87 mill/uL (4.2-5.4)
[2019-01-03 06:50] LABS: CHLORIDE 118 mEq/L (98-107)
[2019-01-03 08:00] VITALS: BP 97/54
[2019-01-03] MEDS: LOSARTAN POTASSIUM 50 MG TABLET PO SCH ×2 (09:00→21:27)
[2019-01-03] MEDS: AMLODIPINE 5MG TABLET PO SCH ×2 (09:00→21:33)
[2019-01-03] MEDS: LACTOBACILLUS GG CAPSULE PO SCH (09:12)
[2019-01-03] MEDS: FOLIC ACID 1MG TABLET PO SCH (09:12)
[2019-01-03] MEDS: ZINC OXIDE 20% OINT 30GM TOP SCH ×2 (09:13→16:49)
[2019-01-03] MEDS: DIPHENOXYLATE/ATROPINE 2.5/0.025MG TABLET PO PRN (09:37)
[2019-01-03 12:00] VITALS: BP 100/68
[2019-01-03] MEDS: MORPHINE SULFATE 2 MG/ML CPJ (NOT FOR IM USE) IV PRN (14:36)
[2019-01-03 16:00] VITALS: BP 122/67
[2019-01-03] MEDS: DEXT 5%/0.45% NACL KCL 20MEQ/L 1,000 ML IV SCH (16:49)
[2019-01-03 20:00] VITALS: BP 135/67
[2019-01-03] MEDS: OXYCODONE HCL/ACETAMINOPHEN 5/325MG TABLET PO PRN (21:29)
[2019-01-04] VITALS: BP 140/68
[2019-01-04] MEDS: DEXT 5%/0.45% NACL KCL 20MEQ/L 1,000 ML IV SCH ×2 (02:13→14:34)
[2019-01-04 04:00] VITALS: BP 139/68
[2019-01-04] MEDS: MORPHINE SULFATE 2 MG/ML CPJ (NOT FOR IM USE) IV PRN ×3 (06:32→17:32)
[2019-01-04] MEDS: SUCRALFATE 1 G/10 ML UDC PO SCH ×4 (06:51→20:42)
[2019-01-04] MEDS: PANTOPRAZOLE 40MG DR TABLET PO SCH ×2 (06:51→17:22)
[2019-01-04 08:29] LABS: BASOPHILS % 0.6 % (0.0-2.0); EOSINOPHILS % 0.2 % (0.0-5.0); HEMATOCRIT. 29.5 % (36.0-48.0); LYMPHOCYTES % 52.7 % (20.0-50.0); MEAN CORPUSCULAR VOLUME 88.4 fL (81.0-99.0); MONOCYTES % 9.9 % (2.0-8.0); NEUTROPHILS % 36.6 % (40.0-76.0); PLATELET 151 x1000/uL (130-400); RED BLOOD CELL COUNT 3.34 mill/uL (4.2-5.4); RED CELL DISTRIBUTION WIDTH 17.2 % (11.6-14.6)
[2019-01-04] MEDS: LACTOBACILLUS GG CAPSULE PO SCH (09:21)
[2019-01-04] MEDS: LOSARTAN POTASSIUM 50 MG TABLET PO SCH ×2 (09:22→20:42)
[2019-01-04] MEDS: FOLIC ACID 1MG TABLET PO SCH (09:22)
[2019-01-04] MEDS: HYDRALAZINE HCL 50MG TABLET PO SCH ×2 (09:22→20:42)
[2019-01-04] MEDS: ZINC OXIDE 20% OINT 30GM TOP SCH ×2 (09:22→17:22)
[2019-01-04] MEDS: AMLODIPINE 5MG TABLET PO SCH ×2 (10:55→20:42)
[2019-01-04] MEDS: CLONIDINE 0.1MG TABLET PO SCH ×2 (10:56→20:44)
[2019-01-04 12:00] VITALS: BP 104/63
[2019-01-04] MEDS ORDERED: OCTREOTIDE ACETATE 50 MCG/ML 1ML SUBCUT SCH (12:00)
[2019-01-04 16:00] VITALS: BP 115/79
[2019-01-04 16:40] LABS: CHLORIDE 124 mEq/L (98-107)
[2019-01-04 20:00] VITALS: BP 148/69
[2019-01-04] MEDS: OXYCODONE HCL/ACETAMINOPHEN 5/325MG TABLET PO PRN (20:43)
[2019-01-05] VITALS (7 sets, daily range): BP systolic 109–159; BP diastolic 65–84
[2019-01-05] MEDS: DEXT 5%/0.45% NACL KCL 20MEQ/L 1,000 ML IV SCH ×4 (00:30→23:05)
[2019-01-05] MEDS: MORPHINE SULFATE 2 MG/ML CPJ (NOT FOR IM USE) IV PRN ×3 (01:54→23:04)
[2019-01-05] MEDS: SUCRALFATE 1 G/10 ML UDC PO SCH ×4 (06:35→20:34)
[2019-01-05] MEDS: PANTOPRAZOLE 40MG DR TABLET PO SCH ×2 (06:35→19:02)
[2019-01-05] MEDS: CLONIDINE 0.1MG TABLET PO SCH ×2 (09:00→21:00)
[2019-01-05] MEDS: LACTOBACILLUS GG CAPSULE PO SCH (09:31)
[2019-01-05] MEDS: OXYCODONE HCL/ACETAMINOPHEN 5/325MG TABLET PO PRN ×3 (09:34→19:33)
[2019-01-05] MEDS: HYDRALAZINE HCL 50MG TABLET PO SCH ×2 (09:35→21:00)
[2019-01-05] MEDS: LOSARTAN POTASSIUM 50 MG TABLET PO SCH ×2 (09:35→21:00)
[2019-01-05] MEDS: FOLIC ACID 1MG TABLET PO SCH (09:39)
[2019-01-05] MEDS ORDERED: POTASSIUM CHLORIDE 20MEQ TABLET SR PO NR (12:15)
[2019-01-05] MEDS: DIPHENOXYLATE/ATROPINE 2.5/0.025MG TABLET PO PRN (12:47)
[2019-01-05] MEDS: ZINC OXIDE 20% OINT 30GM TOP SCH ×2 (12:53→19:02)
[2019-01-05] MEDS: ONDANSETRON HCL 4MG/2ML INJ IV PRN (13:45)
[2019-01-05] MEDS: AMLODIPINE 5MG TABLET PO SCH ×2 (13:45→21:00)
[2019-01-05] MEDS ORDERED: OCTREOTIDE ACETATE 100 MCG/ML 1ML SUBCUT NR (14:00)
[2019-01-05 15:21] LABS: HSV 2 IGG SUPPLEMENTAL TEST Positive (Negative)
[2019-01-05] MEDS ORDERED: SORBITOL 70% SOLN 30ML PO NR ×2 (16:00→20:00)
[2019-01-06] VITALS: BP 151/77
[2019-01-06 04:00] VITALS: BP 156/82
[2019-01-06] MEDS: MORPHINE SULFATE 2 MG/ML CPJ (NOT FOR IM USE) IV PRN ×3 (05:14→21:26)
[2019-01-06] MEDS: PANTOPRAZOLE 40MG DR TABLET PO SCH ×2 (06:01→17:57)
[2019-01-06] MEDS: SUCRALFATE 1 G/10 ML UDC PO SCH ×4 (06:01→21:51)
[2019-01-06 06:25] LABS: INR 1.2; PARTIAL THROMBOPLASTIN TIME 33.2 sec (23.4-31.0)
[2019-01-06] MEDS: DEXT 5%/0.45% NACL KCL 20MEQ/L 1,000 ML IV SCH ×2 (06:30→17:58)
[2019-01-06 06:39] LABS: BASOPHILS % 0.3 % (0.0-2.0); EOSINOPHILS % 0.2 % (0.0-5.0); HEMATOCRIT. 28.7 % (36.0-48.0); HEMOGLOBIN. 10.1 g/dL (12.0-16.0); LYMPHOCYTES % 44.5 % (20.0-50.0); MEAN CORPUSCULAR HEMOGLOBIN 30.9 pg (28.0-32.0); MEAN PLATELET VOLUME 9.1 fl (7.4-10.4); MONOCYTES % 5.7 % (2.0-8.0); NEUTROPHILS % 49.3 % (40.0-76.0); PLATELET 148 x1000/uL (130-400); RED BLOOD CELL COUNT 3.26 mill/uL (4.2-5.4); RED CELL DISTRIBUTION WIDTH 16.6 % (11.6-14.6)
[2019-01-06 06:55] LABS: CHLORIDE 116 mEq/L (98-107)
[2019-01-06] MEDS ORDERED: NA PHOS,M-B/NA PHOS,DI-BA ENEMA 118ML PR SCH (07:00)
[2019-01-06 08:00] VITALS: BP 149/76
[2019-01-06] MEDS: LACTOBACILLUS GG CAPSULE PO SCH (09:00)
[2019-01-06] MEDS: LOSARTAN POTASSIUM 50 MG TABLET PO SCH ×2 (09:00→21:51)
[2019-01-06] MEDS: CLONIDINE 0.1MG TABLET PO SCH ×2 (09:00→21:51)
[2019-01-06] MEDS: AMLODIPINE 5MG TABLET PO SCH ×2 (09:00→21:51)
[2019-01-06] MEDS: FOLIC ACID 1MG TABLET PO SCH (09:00)
[2019-01-06] MEDS: HYDRALAZINE HCL 50MG TABLET PO SCH ×2 (09:00→21:51)
[2019-01-06] MEDS: ZINC OXIDE 20% OINT 30GM TOP SCH ×2 (09:42→17:57)
[2019-01-06] MEDS: DIPHENHYDRAMINE 50MG/ML VIAL IV PRN (10:27)
[2019-01-06] MEDS ORDERED: DIPHENHYDRAMINE 50MG/ML VIAL IM PRN (10:30)
[2019-01-06] MEDS ORDERED: MIDAZOLAM HCL 5 MG/5 ML VIAL ONE (11:53)
[2019-01-06] MEDS ORDERED: FENTANYL CITRATE/PF 50MCG/ML 2ML VIAL ONE (11:53)
[2019-01-06] MEDS ORDERED: MIDAZOLAM HCL 5 MG/5 ML VIAL IV PRN (12:00)
[2019-01-06] MEDS ORDERED: FENTANYL CITRATE/PF 50MCG/ML 2ML VIAL IV PRN (12:01)
[2019-01-06] MEDS ORDERED: DIATR MEGLU/DIATRIZOATE SOLN 30ML PO SCH (13:00)
[2019-01-06 16:00] VITALS: BP 114/81
[2019-01-06] MEDS: OXYCODONE HCL/ACETAMINOPHEN 5/325MG TABLET PO PRN (18:16)
[2019-01-06 20:00] VITALS: BP 143/67
[2019-01-07] VITALS (26 sets, daily range): BP systolic 129–162; BP diastolic 68–89
[2019-01-07] MEDS: MORPHINE SULFATE 2 MG/ML CPJ (NOT FOR IM USE) IV PRN ×4 (02:07→20:53)
[2019-01-07] MEDS: PANTOPRAZOLE 40MG DR TABLET PO SCH ×2 (06:11→17:44)
[2019-01-07] MEDS: SUCRALFATE 1 G/10 ML UDC PO SCH ×4 (06:11→20:53)
[2019-01-07 07:13] LABS: BASOPHILS % 0.7 % (0.0-2.0); EOSINOPHILS % 0.6 % (0.0-5.0); HEMATOCRIT. 31.4 % (36.0-48.0); HEMOGLOBIN. 10.8 g/dL (12.0-16.0); LYMPHOCYTES % 44.5 % (20.0-50.0); MEAN CORPUSCULAR HEMOGLOBIN 30.3 pg (28.0-32.0); MEAN CORPUSCULAR VOLUME 87.6 fL (81.0-99.0); MEAN PLATELET VOLUME 9.1 fl (7.4-10.4); MONOCYTES % 12.2 % (2.0-8.0); PLATELET 152 x1000/uL (130-400); RED BLOOD CELL COUNT 3.58 mill/uL (4.2-5.4); RED CELL DISTRIBUTION WIDTH 16.5 % (11.6-14.6)
[2019-01-07 07:14] LABS: CHLORIDE 114 mEq/L (98-107)
[2019-01-07 07:23] LABS: PHOSPHORUS 2.4 mg/dL (2.5-4.9); TOTAL IRON BINDING CAPACITY 84 ug/dL (250-450)
[2019-01-07] MEDS ORDERED: POTASSIUM CHLORIDE 20MEQ TABLET SR PO SCH (07:45)
[2019-01-07 08:13] LABS: VITAMIN B12 SERUM > 2000.0 pg/mL (211-911)
[2019-01-07] MEDS: HYDRALAZINE HCL 50MG TABLET PO SCH ×2 (09:00→21:00)
[2019-01-07] MEDS: LOSARTAN POTASSIUM 50 MG TABLET PO SCH ×2 (09:00→22:02)
[2019-01-07] MEDS: FOLIC ACID 1MG TABLET PO SCH (09:00)
[2019-01-07] MEDS: AMLODIPINE 5MG TABLET PO SCH ×2 (09:00→22:02)
[2019-01-07] MEDS: LACTOBACILLUS GG CAPSULE PO SCH (09:00)
[2019-01-07] MEDS ORDERED: MAGNESIUM 4 G PREMIX 100 ML IV NR (10:00)
[2019-01-07] MEDS ORDERED: SODIUM BICARBONATE 4% (2.4MEQ) 5ML VIAL IV ONE ×2 (12:27→12:44)
[2019-01-07] MEDS ORDERED: LIDOCAINE HCL 1% 20ML VIAL (Pyxis) INJ ONE (12:27)
[2019-01-07] MEDS ORDERED: LIDOCAINE HCL/EPINEPHRINE 1%-EPI 1:100,000 20 ML VIAL ONE (12:33)
[2019-01-07] MEDS ORDERED: CEFAZOLIN 1000MG PREMIX 50 ML IV ONE ×2 (12:54→13:15)
[2019-01-07] MEDS ORDERED: FENTANYL CITRATE/PF 50MCG/ML 2ML VIAL ONE (12:55)
[2019-01-07] MEDS ORDERED: FENTANYL CITRATE/PF 50MCG/ML 2ML VIAL IV ONE (13:30)
[2019-01-07] MEDS ORDERED: FENTANYL CITRATE/PF 50MCG/ML 2ML VIAL IV SCH (13:45)
[2019-01-07] MEDS ORDERED: DIATR MEGLU/DIATRIZOATE SOLN 30ML PO SCH (14:45)
[2019-01-07] MEDS: CLONIDINE 0.1MG TABLET PO SCH ×2 (16:18→20:53)
[2019-01-07] MEDS: ZINC OXIDE 20% OINT 30GM TOP SCH ×2 (16:20→17:00)
[2019-01-07] MEDS ORDERED: POLYETHYLENE GLYCOL-ELECTROLYTE 4000ML PO NR (16:30)
[2019-01-07] MEDS: DIPHENHYDRAMINE 50MG/ML VIAL IV PRN (17:26)
[2019-01-07] MEDS ORDERED: DEXTROSE 50% WATER 50ML SYRINGE IV PRN (21:00)
[2019-01-07] MEDS: INSULIN LISPRO (LOW DOSE) 100 UNITS/ML SUBCUT SCH (21:00)
[2019-01-07] MEDS: BLOOD SUGAR DIAGNOSTIC STRIP TEST SCH (21:00)
[2019-01-07] MEDS ORDERED: TOTAL PARENTERAL NUTRITION 1,700 ML IV SCH (21:00)
[2019-01-07] MEDS ORDERED: DEXT 5%/0.45% NACL KCL 20MEQ/L 1,000 ML IV SCH (22:00)
[2019-01-08] VITALS: BP 138/73
[2019-01-08] MEDS: DIPHENHYDRAMINE 50MG/ML VIAL IV PRN (00:01)
[2019-01-08] MEDS: MORPHINE SULFATE 2 MG/ML CPJ (NOT FOR IM USE) IV PRN ×2 (00:53→06:07)
[2019-01-08] MEDS: OXYCODONE HCL/ACETAMINOPHEN 5/325MG TABLET PO PRN ×2 (02:58→09:23)
[2019-01-08] MEDS: BLOOD SUGAR DIAGNOSTIC STRIP TEST SCH ×2 (03:00→09:00)
[2019-01-08] MEDS: INSULIN LISPRO (LOW DOSE) 100 UNITS/ML SUBCUT SCH ×2 (03:00→09:00)
[2019-01-08 04:00] VITALS: BP 153/74
[2019-01-08 08:22] VITALS: BP 137/66
[2019-01-08] MEDS ORDERED: DIATR MEGLU/DIATRIZOATE SOLN 120ML ONE (09:36)
[2019-01-08] MEDS ORDERED: IOHEXOL-300 50 ML BOTTLE IV ONE (09:40)
[2019-01-08] MEDS: PANTOPRAZOLE 40MG DR TABLET PO SCH (10:49)
[2019-01-08] MEDS: LACTOBACILLUS GG CAPSULE PO SCH (10:49)
[2019-01-08] MEDS: CLONIDINE 0.1MG TABLET PO SCH (10:50)
[2019-01-08] MEDS: AMLODIPINE 5MG TABLET PO SCH (10:50)
[2019-01-08] MEDS: FOLIC ACID 1MG TABLET PO SCH (10:51)
[2019-01-08] MEDS: LOSARTAN POTASSIUM 50 MG TABLET PO SCH (10:51)
[2019-01-08] MEDS: HYDRALAZINE HCL 50MG TABLET PO SCH (10:51)
[2019-01-08] MEDS: ZINC OXIDE 20% OINT 30GM TOP SCH (10:54)
[2019-01-08] MEDS: SUCRALFATE 1 G/10 ML UDC PO SCH (10:58)
[2019-01-08 11:20] VITALS: BP 137/66
[2019-01-08 12:22] VITALS: BP 104/56
[2019-01-08 14:38] LABS: BASOPHILS % 0.3 % (0.0-2.0); EOSINOPHILS % 0.3 % (0.0-5.0); HEMATOCRIT. 30.1 % (36.0-48.0); HEMOGLOBIN. 10.3 g/dL (12.0-16.0); LYMPHOCYTES % 48.5 % (20.0-50.0); MEAN CORPUSCULAR HEMOGLOBIN 30.1 pg (28.0-32.0); MEAN CORPUSCULAR VOLUME 88.2 fL (81.0-99.0); MEAN PLATELET VOLUME 9.1 fl (7.4-10.4); MONOCYTES % 13.3 % (2.0-8.0); NEUTROPHILS % 37.6 % (40.0-76.0); PLATELET 140 x1000/uL (130-400); RED BLOOD CELL COUNT 3.41 mill/uL (4.2-5.4); RED CELL DISTRIBUTION WIDTH 16.9 % (11.6-14.6)
[2019-01-08 14:41] LABS: CHLORIDE 108 mEq/L (98-107)
[2019-01-08] MEDS ORDERED: TOTAL PARENTERAL NUTRITION 1,700 ML IV SCH (21:00)
[2019-01-08] MEDS ORDERED: FAT EMULSIONS 500 ML IV SCH (21:00)
[2019-01-12] MEDS ORDERED: FAT EMULSIONS 500 ML IV SCH (21:00)
== END 2019-01-08 13:55 | disposition home health service (06) | DRG 682 ==
LOC: ER 19:32 → EDBEDREQ 22:13 → EDBEDREQTM 22:13 → ENRESERV 23:13 → 7WST 12-21 01:13 → 6WST 12-28 19:53
PROVIDERS: ADMIT Internal Medicine; ATTEND Internal Medicine
PROC: 02HV33Z Insertion of Infusion Device into Superior Vena Cava, Percutaneous Approach (ICD-10-PCS; 2018-12-26)
PROC: B548ZZA Ultrasonography of Superior Vena Cava, Guidance (ICD-10-PCS; 2018-12-26)
PROC: 02HV33Z Insertion of Infusion Device into Superior Vena Cava, Percutaneous Approach (ICD-10-PCS; 2019-01-03)
PROC: B5181ZA Fluoroscopy of Superior Vena Cava using Low Osmolar Contrast, Guidance (ICD-10-PCS; 2019-01-03)
PROC: B548ZZA Ultrasonography of Superior Vena Cava, Guidance (ICD-10-PCS; 2019-01-03)
PROC: 0DB88ZX Excision of Small Intestine, Via Natural or Artificial Opening Endoscopic, Diagnostic (ICD-10-PCS; principal; 2019-01-06)
PROC: 02HV33Z Insertion of Infusion Device into Superior Vena Cava, Percutaneous Approach (ICD-10-PCS; 2019-01-07)
PROC: B5181ZA Fluoroscopy of Superior Vena Cava using Low Osmolar Contrast, Guidance (ICD-10-PCS; 2019-01-07)
PROC: B548ZZA Ultrasonography of Superior Vena Cava, Guidance (ICD-10-PCS; 2019-01-07)
DX: N17.0 Acute kidney failure with tubular necrosis (principal); J18.1 Lobar pneumonia, unspecified organism; E43 Unspecified severe protein-calorie malnutrition; K27.4 Chronic or unspecified peptic ulcer, site unspecified, with hemorrhage; I82.622 Acute embolism and thrombosis of deep veins of left upper extremity; K31.6 Fistula of stomach and duodenum; E87.6 Hypokalemia; D64.9 Anemia, unspecified; E03.9 Hypothyroidism, unspecified; E11.649 Type 2 diabetes mellitus with hypoglycemia without coma; E87.8 Other disorders of electrolyte and fluid balance, not elsewhere classified; I10 Essential (primary) hypertension; F14.90 Cocaine use, unspecified, uncomplicated; F17.210 Nicotine dependence, cigarettes, uncomplicated; E78.00 Pure hypercholesterolemia, unspecified; J44.9 Chronic obstructive pulmonary disease, unspecified; L29.9 Pruritus, unspecified; R62.7 Adult failure to thrive; Z87.11 Personal history of peptic ulcer disease; Z68.23 Body mass index [BMI] 23.0-23.9, adult; Z90.49 Acquired absence of other specified parts of digestive tract; Z79.899 Other long term (current) drug therapy
CPT/HCPCS: 36415; 36561; 36573; 71045; 74018; 74176; 74177; 76937; 77001; 80048; 80305; 82040; 82270; 82607; 82728; 82962; 83520; 83540; 83550; 83735; 84100; 84134; 84145; 85014; 85018; 86256; 86644; 86671; 86695; 86696; 86850; 86900; 86920; 87015; 87045; 87177; 87209; 87427; 87449; 87493; 88305; 89055; 93005; 93306; 93970; 93971; 96374; 97162; 97166; 97530; 97535; 99152; 99153; 99291; A6261; C1725; C1887; C1893; J0690; J0696; J1200; J1650; J1885; J2250; J2270; J2354; J2405; J3010; J3475; J3480; J3490; J7030; J7040; J7050; J7060; P9016; Q9963; Q9967; G0500

== ENCOUNTER 2019-04-06 00:53 | Emergency (ER) | payer MEDICARE, MEDICAID ==
[~2019-04-06] VITALS: Ht 152.4 cm; Wt 43.0 kg
[~2019-04-06 00:53] MED LIST changes: -ATEN-42 PO; -GEMF600T5 PO
[2019-04-06] MEDS ORDERED: SODIUM CHLORIDE 0.9% 1,000 ML IV ONE (02:03)
[2019-04-06] MEDS ORDERED: FAMOTIDINE 20MG/2ML VIAL IV STA (02:03)
[2019-04-06] MEDS ORDERED: MORPHINE SULFATE 4 MG/ML CPJ (NOT FOR IM USE) IV STA (02:03)
[2019-04-06] MEDS ORDERED: ONDANSETRON HCL 4MG/2ML INJ IV STA (02:03)
[2019-04-06] MEDS ORDERED: DIATR MEGLU/DIATRIZOATE SOLN 30ML ONE (02:24)
[2019-04-06 02:39] LABS: BASOPHILS % 0.3 % (0.0-2.0); EOSINOPHILS % 1.3 % (0.0-5.0); HEMATOCRIT. 29.8 % (36.0-48.0); HEMOGLOBIN. 9.9 g/dL (12.0-16.0); MEAN CORPUSCULAR HEMOGLOBIN 33.9 pg (28.0-32.0); MEAN CORPUSCULAR VOLUME 102.1 fL (81.0-99.0); MEAN PLATELET VOLUME 10.1 fl (7.4-10.4); MONOCYTES % 11.4 % (2.0-8.0); PLATELET 300 x1000/uL (130-400); RED BLOOD CELL COUNT 2.91 mill/uL (4.2-5.4); RED CELL DISTRIBUTION WIDTH 15.3 % (11.6-14.6)
[2019-04-06 02:43] LABS: CHLORIDE 113 mEq/L (98-107)
[2019-04-06 03:05] LABS: PROTHROMBIN TIME 10.3 sec (9.6-11.0)
[2019-04-06 04:31] LABS: CLARITY URINE CLEAR (CLEAR); COLOR URINE YELLOW (YELLOW); KETONES URINE NEGATIVE (NEGATIVE); LEUKOCYTE ESTERASE URINE NEGATIVE (NEGATIVE); NITRITE URINE NEGATIVE (NEGATIVE); OCCULT BLOOD URINE NEGATIVE (NEGATIVE); PH URINE 5.5 (4.5-8.0); PROTEIN URINE NEGATIVE (NEGATIVE); SPECIFIC GRAVITY URINE 1.012 (1.005-1.030); UROBILINOGEN URINE 0.2 E.U./dL (0.2-1.0)
[2019-04-06] MEDS ORDERED: IOHEXOL-300 100 ML BOTTLE ONE (06:22)
[2019-04-06 07:43] VITALS: BP 160/75
== END 2019-04-06 08:44 | disposition left against medical advice (07) ==
LOC: ER 01:32 → EDBEDREQ 05:55 → EDBEDREQSVC 05:55 → EDBEDREQTM 05:55 → ENRESERV 08:29 → CANRESERV 08:29 → ER 08:44 → CANBEDREQ 16:25
DX: R10.30 Lower abdominal pain, unspecified (principal); E78.00 Pure hypercholesterolemia, unspecified; I10 Essential (primary) hypertension; F12.10 Cannabis abuse, uncomplicated; F17.210 Nicotine dependence, cigarettes, uncomplicated; Z98.890 Other specified postprocedural states; Z79.899 Other long term (current) drug therapy
CPT/HCPCS: 36415; 71045; 74177; 80053; 81003; 83605; 83690; 85025; 85610; 93005; 96374; 96375; 99284; 99406; J2270; J2405; J3490; J7030; Q9963; Q9967

== ENCOUNTER 2019-04-14 14:45 | Inpatient (IN) | payer MEDICARE, MEDICAID ==
[~2019-04-14] VITALS: Ht 157.5 cm; Wt 47.6 kg
[2019-04-14] MEDS ORDERED: SODIUM CHLORIDE 0.9% 1,000 ML IV ONE (15:42)
[2019-04-14] MEDS ORDERED: MORPHINE SULFATE 4 MG/ML CPJ (NOT FOR IM USE) IV STA (15:48)
[2019-04-14] MEDS ORDERED: ONDANSETRON HCL 4MG/2ML INJ IV STA (15:48)
[2019-04-14 16:29] LABS: BASOPHILS % 0.2 % (0.0-2.0); LYMPHOCYTES % 8.8 % (20.0-50.0); MEAN CORPUSCULAR HEMOGLOBIN 32.4 pg (28.0-32.0); MEAN CORPUSCULAR VOLUME 99.5 fL (81.0-99.0); MEAN PLATELET VOLUME 8.8 fl (7.4-10.4); MONOCYTES % 5.9 % (2.0-8.0); NEUTROPHILS % 85.1 % (40.0-76.0); PLATELET 252 x1000/uL (130-400); RED BLOOD CELL COUNT 2.01 mill/uL (4.2-5.4); RED CELL DISTRIBUTION WIDTH 15.3 % (11.6-14.6)
[2019-04-14] MEDS ORDERED: KETOROLAC 15MG/ML VIAL IV ONE (16:30)
[2019-04-14 16:32] LABS: HEMOGLOBIN. 6.5 g/dL (12.0-16.0)
[2019-04-14 16:34] LABS: CHLORIDE 108 mEq/L (98-107); INR 0.9; PROTHROMBIN TIME 9.5 sec (9.6-11.0)
[2019-04-14] MEDS ORDERED: DIATR MEGLU/DIATRIZOATE SOLN 30ML ONE (16:40)
[2019-04-14 18:29] LABS: CLARITY URINE CLEAR (CLEAR); COLOR URINE YELLOW (YELLOW); KETONES URINE NEGATIVE (NEGATIVE); LEUKOCYTE ESTERASE URINE NEGATIVE (NEGATIVE); NITRITE URINE NEGATIVE (NEGATIVE); OCCULT BLOOD URINE 2+ (NEGATIVE); PH URINE >=9.0 (4.5-8.0); PROTEIN URINE NEGATIVE (NEGATIVE); SPECIFIC GRAVITY URINE 1.018 (1.005-1.030); UROBILINOGEN URINE 0.2 E.U./dL (0.2-1.0)
[2019-04-14] MEDS ORDERED: ONDANSETRON HCL 4MG/2ML INJ IV ONE (18:45)
[2019-04-14] MEDS ORDERED: FENTANYL CITRATE/PF 50MCG/ML 2ML VIAL IV ONE (18:45)
[2019-04-14] MEDS ORDERED: IOHEXOL-300 100 ML BOTTLE ONE (18:57)
[2019-04-14] MEDS ORDERED: FAMOTIDINE 20MG/2ML VIAL IV ONE (19:15)
[2019-04-14 22:40] VITALS: BP 145/81
[2019-04-14] MEDS ORDERED: ONDANSETRON HCL 4MG/2ML INJ IV PRN (23:45)
[2019-04-15] VITALS (7 sets, daily range): BP systolic 141–174; BP diastolic 75–88
[2019-04-15] MEDS: MORPHINE SULFATE 4 MG/ML CPJ (NOT FOR IM USE) IV PRN ×5 (00:05→21:42)
[2019-04-15] MEDS: DEXT 5%/0.45% NACL KCL 20MEQ/L 1,000 ML IV SCH ×3 (01:06→17:30)
[2019-04-15] MEDS ORDERED: CLONIDINE 0.1MG TABLET PO PRN (06:15)
[2019-04-15] MEDS: PANTOPRAZOLE SODIUM 40 MG/VIAL IV SCH ×2 (08:56→21:40)
[2019-04-15 09:09] LABS: HEMOGLOBIN 8.8 g/dL (12.0-16.0); MEAN CORPUSCULAR HEMOGLOBIN 31.8 pg (28.0-32.0); MEAN CORPUSCULAR VOLUME 94.2 fL (81.0-99.0); PLATELET 182 x1000/uL (130-400); RED BLOOD CELL COUNT 2.76 mill/uL (4.2-5.4); RED CELL DISTRIBUTION WIDTH 17.2 % (11.6-14.6)
[2019-04-15 09:16] LABS: CHLORIDE 112 mEq/L (98-107)
[2019-04-15] MEDS ORDERED: FENTANYL CITRATE/PF 50MCG/ML 2ML VIAL ONE (14:22)
[2019-04-15] MEDS ORDERED: MIDAZOLAM HCL 5 MG/5 ML VIAL ONE (14:22)
[2019-04-15] MEDS ORDERED: MIDAZOLAM HCL 5 MG/5 ML VIAL IV PRN (14:28)
[2019-04-15] MEDS ORDERED: FENTANYL CITRATE/PF 50MCG/ML 2ML VIAL IV PRN (14:29)
[2019-04-15] MEDS: SUCRALFATE 1 G/10 ML UDC PO SCH ×2 (17:19→21:40)
[2019-04-15 20:34] LABS: HEMATOCRIT 24.8 % (36.0-48.0); HEMOGLOBIN 8.2 g/dL (12.0-16.0)
[2019-04-15] MEDS: AMLODIPINE 5MG TABLET PO SCH (21:41)
[2019-04-16] VITALS: BP 141/73
[2019-04-16] MEDS: DEXT 5%/0.45% NACL KCL 20MEQ/L 1,000 ML IV SCH ×4 (01:51→23:28)
[2019-04-16] MEDS: MORPHINE SULFATE 4 MG/ML CPJ (NOT FOR IM USE) IV PRN ×6 (02:02→23:18)
[2019-04-16 04:00] VITALS: BP 144/78
[2019-04-16] MEDS: SUCRALFATE 1 G/10 ML UDC PO SCH ×4 (06:02→23:17)
[2019-04-16 06:50] LABS: *BARBITURATES SCREEN URINE NEGATIVE (NEGATIVE)
[2019-04-16 06:51] LABS: *AMPHETAMINES SCREEN URINE NEGATIVE (NEGATIVE); *BENZODIAZEPINES SCREEN URINE PRESUMTIVE POSITIVE (NEGATIVE); *COCAINE SCREEN URINE NEGATIVE (NEGATIVE); METHADONE URINE SCREEN NEGATIVE (NEGATIVE); OPIATES URINE SCREEN PRESUMTIVE POSITIVE (NEGATIVE); PHENCYCLIDINE URINE SCREEN NEGATIVE (NEGATIVE)
[2019-04-16 06:52] LABS: CANNABINOID URINE SCREEN NEGATIVE (NEGATIVE)
[2019-04-16 07:07] LABS: BASOPHILS % 0.3 % (0.0-2.0); EOSINOPHILS % 0.5 % (0.0-5.0); HEMATOCRIT. 26.4 % (36.0-48.0); HEMOGLOBIN. 8.7 g/dL (12.0-16.0); LYMPHOCYTES % 19.2 % (20.0-50.0); MEAN CORPUSCULAR HEMOGLOBIN 31.3 pg (28.0-32.0); MEAN CORPUSCULAR VOLUME 95.5 fL (81.0-99.0); MEAN PLATELET VOLUME 9.6 fl (7.4-10.4); MONOCYTES % 8.2 % (2.0-8.0); NEUTROPHILS % 71.8 % (40.0-76.0); PLATELET 193 x1000/uL (130-400); RED BLOOD CELL COUNT 2.77 mill/uL (4.2-5.4); RED CELL DISTRIBUTION WIDTH 17.4 % (11.6-14.6)
[2019-04-16 07:17] LABS: CHLORIDE 110 mEq/L (98-107)
[2019-04-16 08:07] VITALS: BP 140/73
[2019-04-16] MEDS: AMLODIPINE 5MG TABLET PO SCH ×2 (08:39→23:16)
[2019-04-16] MEDS: PANTOPRAZOLE SODIUM 40 MG/VIAL IV SCH ×2 (08:40→23:17)
[2019-04-16] MEDS ORDERED: TRAMADOL 50MG TABLET PO PRN (11:45)
[2019-04-16] MEDS ORDERED: OMEP40CA34 MT (11:51)
[2019-04-16] MEDS ORDERED: SUCR1TAB MT (11:51)
[2019-04-16] MEDS ORDERED: TRAM50TA3 MT (11:51)
[2019-04-16] MEDS ORDERED: AMLO5TAB88 MT (11:51)
[2019-04-16 12:39] VITALS: BP 141/74
[2019-04-16 16:44] VITALS: BP 149/76
[2019-04-16] MEDS ORDERED: ACETAMINOPHEN 325MG TABLET PO PRN (17:00)
[2019-04-16] MEDS: PIPERACILLIN/TAZOBACTAM 3.375 G in DEXT 5% WATER 100 ML IV SCH ×2 (18:14→23:17)
[2019-04-16 20:00] VITALS: BP 138/63
[2019-04-17 00:31] VITALS: BP 151/76
[2019-04-17 04:00] VITALS: BP 129/65
[2019-04-17] MEDS: MORPHINE SULFATE 4 MG/ML CPJ (NOT FOR IM USE) IV PRN (04:41)
[2019-04-17] MEDS: SUCRALFATE 1 G/10 ML UDC PO SCH ×2 (06:36→12:20)
[2019-04-17] MEDS: PIPERACILLIN/TAZOBACTAM 3.375 G in DEXT 5% WATER 100 ML IV SCH ×2 (06:37→12:00)
[2019-04-17 08:00] VITALS: BP 147/64
[2019-04-17 08:32] LABS: BASOPHILS % 0.3 % (0.0-2.0); HEMATOCRIT. 25.1 % (36.0-48.0); HEMOGLOBIN. 8.3 g/dL (12.0-16.0); LYMPHOCYTES % 25.1 % (20.0-50.0); MEAN CORPUSCULAR HEMOGLOBIN 31.5 pg (28.0-32.0); MEAN CORPUSCULAR VOLUME 95.5 fL (81.0-99.0); MEAN PLATELET VOLUME 9.5 fl (7.4-10.4); MONOCYTES % 12.1 % (2.0-8.0); NEUTROPHILS % 61.5 % (40.0-76.0); PLATELET 202 x1000/uL (130-400); RED BLOOD CELL COUNT 2.63 mill/uL (4.2-5.4)
[2019-04-17 08:41] LABS: CHLORIDE 109 mEq/L (98-107)
[2019-04-17] MEDS: PANTOPRAZOLE SODIUM 40 MG/VIAL IV SCH (09:00)
[2019-04-17] MEDS: DEXT 5%/0.45% NACL KCL 20MEQ/L 1,000 ML IV SCH (09:00)
[2019-04-17] MEDS: AMLODIPINE 5MG TABLET PO SCH (09:19)
[2019-04-17 12:00] VITALS: BP 148/79
[2019-04-17 13:14] VITALS: BP 148/79
== END 2019-04-17 13:50 | disposition home or self-care (01) | DRG 380 ==
LOC: ER 15:03 → 6WST 19:10 → ENRESERV 22:10
PROVIDERS: ADMIT Internal Medicine; ATTEND Internal Medicine
PROC: 30233N1 Transfusion of Nonautologous Red Blood Cells into Peripheral Vein, Percutaneous Approach (ICD-10-PCS; principal; 2019-04-14)
PROC: 0DB68ZX Excision of Stomach, Via Natural or Artificial Opening Endoscopic, Diagnostic (ICD-10-PCS; 2019-04-15)
DX: K22.11 Ulcer of esophagus with bleeding (principal); E43 Unspecified severe protein-calorie malnutrition; K31.6 Fistula of stomach and duodenum; Z68.1 Body mass index [BMI] 19.9 or less, adult; D64.9 Anemia, unspecified; E11.9 Type 2 diabetes mellitus without complications; E78.5 Hyperlipidemia, unspecified; E78.00 Pure hypercholesterolemia, unspecified; E87.6 Hypokalemia; E87.8 Other disorders of electrolyte and fluid balance, not elsewhere classified; G89.29 Other chronic pain; I10 Essential (primary) hypertension; K83.8 Other specified diseases of biliary tract; K26.4 Chronic or unspecified duodenal ulcer with hemorrhage; Z90.3 Acquired absence of stomach [part of]; Z87.11 Personal history of peptic ulcer disease; Z79.899 Other long term (current) drug therapy; Z91.19 Patient's noncompliance with other medical treatment and regimen
CPT/HCPCS: 36415; 36430; 71045; 74177; 74181; 80048; 80305; 81003; 84134; 84484; 85014; 85018; 85027; 86850; 86900; 86920; 88305; 88312; 88313; 96361; 96374; 96375; 96376; 99285; C9113; J1885; J2250; J2270; J2405; J2543; J3010; J7030; J7040; J7060; P9016; Q9963; Q9967